=== PATIENT | female | born 1955 | race Caucasian/White ===

== ENCOUNTER 2018-09-02 01:10 | Inpatient (IN) ==
[2018-09-02] MEDS ORDERED: Pantoprazole Inj 40 MG Vial IV.PUSH ONE (02:25)
--- NOTE | 2018-09-02 02:33 | ED ---
HPI General Chief Complaint: Stroke Alert Stated Complaint: N?V Time Seen by Provider: 09/02/18 02:17 Source: patient Mode of arrival: ambulatory Limitations: no limitations History of Present Illness HPI narrative: 63-year-old female complains of nausea vomiting and chest pain. Patient states that she is not having nausea vomiting persistently tonight. Patient came to the ED subsequently. Patient started having substernal chest pain upon arrival. Patient states that the chest pain or pressure pain substernally with radiation to the jaw and the left arm. Patient denies any palpitation diaphoresis. Patient has history of CAD status post MD and status post stent placement. Patient has history hypertension, hyperlipidemia. Patient denies history of diabetes. Patient is a non-smoker. Patient has family history of heart disease. Patient denies abdominal pain. Patient denies any dysuria frequency. Patient denies any fever chills. Patient denies any back pain. 3 38 AM. I was informed by nurse that patient complains of left-sided facial drooping and left arm numbness and weakness. I came to examine the patient immediately. MD complaint: chest pain STEMI Alert: No Onset (ago): minute(s) Duration: constant Onset: during rest Pain location: substernal Severity: moderate Severity scale (1-10): 7 Quality: aching and heaviness Pain radiation: LUE and jaw/teeth Relieving factors: nothing Exacerbating factors: nothing Associated symptoms: nausea and vomiting Treatments prior to arrival chest pain: none Related Data Home Medications Medication Instructions Recorded Confirmed aspirin 325 mg PO DAILY 09/02/18 09/02/18 lisinopril 5 mg PO DAILY 09/02/18 09/02/18 metoprolol tartrate 50 mg PO BID 09/02/18 09/02/18 nitroglycerin [Nitrostat] 0.4 mg SUBLINGUAL Q5-15M PRN 09/02/18 09/02/18 omega 7-gwn-sdf-fish oil [Fish Oil] 1,000 mg PO BID 09/02/18 09/02/18 pravastatin 40 mg PO DAILY 09/02/18 09/02/18 sertraline [Zoloft] 100 mg PO DAILY 09/02/18 09/02/18 Allergies Allergy/AdvReac Type Severity Reaction Status Date / Time codeine AdvReac Mild Nausea Verified 09/02/18 02:25 vomiting Review of Systems ROS: all other systems reviewed are negative [facility] Medical History Medical History FH: cholecystectomy (Acute) H/O coronary stenosis (Acute) H/O: hysterectomy (Acute) HTN (hypertension) (Acute) Heart attack (Acute) Social History Social History Substance History: No History of Abuse Second Hand Smoke Exposure: No Smoking Status: Former smoker How Often Do You Have a Drink Containing Alcohol: Never Recent Travel in [facility] within the Last 8 Weeks: No Recent Out of Country Travel within the Last 8 Weeks: No Immunization History Tetanus Immunization: <5 Years Hx Influenza Vaccine This Season: No Exam Narrative Exam Narrative: GENERAL: Well-nourished, well-developed patient. SKIN: Focused skin assessment warm/dry. HEAD: Normocephalic. EYES: No scleral icterus. No injection or drainage. NECK: Supple, trachea midline. No JVD or lymphadenopathy. CARDIOVASCULAR: Regular rate and rhythm without murmurs, gallops, or rubs. RESPIRATORY: Breath sounds equal bilaterally. No accessory muscle use. GASTROINTESTINAL: Abdomen soft, non-tender, nondistended. MUSCULOSKELETAL: No cyanosis, or edema. BACK: Nontender without obvious deformity. No CVA tenderness. Neurologic exam normal. 3 38 AM. Patient now has left-sided facial drooping and left arm weakness and decrease in light touch sensation. Stroke alert was called. Course Initial Documented Vital Signs Pulse Rate 121 H 09/02/18 01:26 Respiratory Rate 30 H 09/02/18 01:26 Blood Pressure 181/103 H 09/02/18 01:26 Pulse Oximetry 100 09/02/18 01:26 Last Documented Vital Signs Pulse Rate 101 H 09/02/18 04:40 Respiratory Rate 17 09/02/18 04:40 Blood Pressure 164/99 H 09/02/18 04:40 Pulse Oximetry 97 09/02/18 04:40 Medical Decision Making MDM Narrative Medical decision making narrative: 63-year-old female with nausea vomiting and chest pain. History of CAD. Normal saline solution 1 L IV bolus. Normal saline solution 70 cc an hour. Zofran 4 mg IV. Protonix 40 mg IV. 3:38 AM. I was informed by my nurse the patient complains of left-sided facial drooping and left arm numbness and weakness. Stroke alert was called. I spoke with Dr. Howell, neurologist title one reading teacher. TPA indicated. CT scan of the brain shows no acute pathology. Patient was given TPA. Medical Screen Exam Complete: Yes Emergency Medical Condition: Yes Differential Diagnosis Differential Diagnosis: Differential that doses including gastroenteritis, gastritis, GERD, angina, MD, PE, pneumothorax. Lab Data Result diagrams: 09/02/18 02:38 09/02/18 02:38 Lab Results 09/02/18 09/02/18 09/02/18 Range/Units 02:38 02:38 02:38 WBC 13.2 H (4.0-11.0) th/mm3 RBC 5.76 H (4.00-5.30) mil/mm3 Hgb 17.3 H (11.6-15.3) gm/dL Hct 51.0 H (35.0-46.0) % MCV 88.5 (80.0-100.0) fL MCH 30.1 (27.0-34.0) pg MCHC 34.0 (32.0-36.0) % RDW 13.2 (11.6-17.2) % Plt Count 309 (150-450) th/mm3 MPV 9.1 (7.0-11.0) fL Neut % (Auto) 83.1 H (16.0-70.0) % Lymph % (Auto) 12.5 (9.0-44.0) % Mathews % (Auto) 3.8 (0.0-8.0) % Eos % (Auto) 0.1 (0.0-4.0) % Baso % (Auto) 0.5 (0.0-2.0) % Neut # (Auto) 11.0 H (1.8-7.7) th/mm3 Lymph # (Auto) 1.6 (1.0-4.8) th/mm3 Mathews # (Auto) 0.5 (0.0-0.9) th/mm3 Eos # (Auto) 0.0 (0.0-0.4) th/mm3 Baso # (Auto) 0.1 (0.0-0.2) th/mm3 WBC Differential . Differential Comment Auto diff final PT (9.8-11.6) sec INR Ratio APTT (24.3-30.1) sec Sodium 141 (136-145) meq/L Potassium 3.6 (3.5-5.1) meq/L Chloride 104 (98-107) meq/L Carbon Dioxide 22.5 (21.0-32.0) meq/L Anion Gap 15 (5-15) meq/L BUN 10 (7-18) mg/dL Creatinine 0.96 (0.50-1.00) mg/dL Estimated GFR 59 L (>89) mL/min Random Glucose 192 H (74-106) mg/dL Calcium 9.2 (8.5-10.1) mg/dL Total Bilirubin 1.5 H (0.2-1.0) mg/dL AST 18 (15-37) U/L ALT 22 (10-53) U/L Alkaline Phosphatase 114 (45-117) U/L Total Creatine Kinase 53 (26-192) U/L Troponin I Less than 0.02 L (0.02-0.05) ng/mL B-Natriuretic Peptide 24 (0-100) pg/mL Total Protein 8.2 (6.4-8.2) g/dL Albumin 4.5 (3.4-5.0) g/dL Lipase 144 (73-393) U/L Urine Color (Yellw/Straw) Urine Clarity (Clear) Urine pH (5.0-8.5) Ur Specific Joiner (1.002-1.035) Urine Protein (Neg-Trace) mg/dL Urine Glucose (UA) (Negative) mg/dL Urine Ketones (Negative) mg/dL Urine Occult Blood (Negative) Urine Nitrate (Negative) Urine Bilirubin (Negative) Urine Urobilinogen (Less than 2) mg/dL Ur Leukocyte Esterase (Negative) Urine RBC (0-3) /hpf Urine WBC (0-5) /hpf Ur Squamous Epith Cells (0-5) /hpf Urine Bacteria (None) /hpf Hyaline Casts (0-3) /lpf Granular Casts (None) /lpf Waxy Casts (None) /lpf Urine Mucus (Occasional) /lpf Micro UA Comment Ur Microscopic Review Urine Culture Comments 09/02/18 09/02/18 Range/Units 02:38 03:26 WBC (4.0-11.0) th/mm3 RBC (4.00-5.30) mil/mm3 Hgb (11.6-15.3) gm/dL Hct (35.0-46.0) % MCV (80.0-100.0) fL MCH (27.0-34.0) pg MCHC (32.0-36.0) % RDW (11.6-17.2) % Plt Count (150-450) th/mm3 MPV (7.0-11.0) fL Neut % (Auto) (16.0-70.0) % Lymph % (Auto) (9.0-44.0) % Mathews % (Auto) (0.0-8.0) % Eos % (Auto) (0.0-4.0) % Baso % (Auto) (0.0-2.0) % Neut # (Auto) (1.8-7.7) th/mm3 Lymph # (Auto) (1.0-4.8) th/mm3 Mathews # (Auto) (0.0-0.9) th/mm3 Eos # (Auto) (0.0-0.4) th/mm3 Baso # (Auto) (0.0-0.2) th/mm3 WBC Differential Differential Comment PT 10.3 (9.8-11.6) sec INR 1.0 Ratio APTT 24.0 L (24.3-30.1) sec Sodium (136-145) meq/L Potassium (3.5-5.1) meq/L Chloride (98-107) meq/L Carbon Dioxide (21.0-32.0) meq/L Anion Gap (5-15) meq/L BUN (7-18) mg/dL Creatinine (0.50-1.00) mg/dL Estimated GFR (>89) mL/min Random Glucose (74-106) mg/dL Calcium (8.5-10.1) mg/dL Total Bilirubin (0.2-1.0) mg/dL AST (15-37) U/L ALT (10-53) U/L Alkaline Phosphatase (45-117) U/L Total Creatine Kinase (26-192) U/L Troponin I (0.02-0.05) ng/mL B-Natriuretic Peptide (0-100) pg/mL Total Protein (6.4-8.2) g/dL Albumin (3.4-5.0) g/dL Lipase (73-393) U/L Urine Color Shelley (Yellw/Straw) Urine Clarity Cloudy H (Clear) Urine pH 5.0 (5.0-8.5) Ur Specific Joiner 1.025 (1.002-1.035) Urine Protein 100 H (Neg-Trace) mg/dL Urine Glucose (UA) 50 (Negative) mg/dL Urine Ketones Trace H (Negative) mg/dL Urine Occult Blood Negative (Negative) Urine Nitrate Negative (Negative) Urine Bilirubin Negative (Negative) Urine Urobilinogen Less than 2 (Less than 2) mg/dL Ur Leukocyte Esterase Negative (Negative) Urine RBC 2 (0-3) /hpf Urine WBC 5 (0-5) /hpf Ur Squamous Epith Cells 3 (0-5) /hpf Urine Bacteria Rare H (None) /hpf Hyaline Casts 63 (0-3) /lpf Granular Casts 13 (None) /lpf Waxy Casts 1 (None) /lpf Urine Mucus Many H (Occasional) /lpf Micro UA Comment Culture not ind Ur Microscopic Review Not Reportable Urine Culture Comments Culture not ind Imaging Data Attestation: I personally reviewed and interpreted this imaging study as follows : Radiologist's impression: Chest X-Ray 09/02/18 02:26 CONCLUSION: 1. No acute cardiopulmonary disease. Head CT 09/02/18 03:40 CONCLUSION: 1. No acute intracranial abnormality. Findings were personally discussed with Dr. Vines at 3:58 AM. Head CTA 09/02/18 03:40 CONCLUSION: 1. Unremarkable CTA examination of the head. Specifically, no evidence for large vessel occlusion. Neck CTA 09/02/18 03:40 CONCLUSION: 1. Eccentric mixed plaque in the right carotid bulb extending to the internal carotid origin with resultant 60% stenosis. 2. Circumferential calcified plaque extending from the left carotid bulb to the internal carotid origin with resultant 45-50% stenosis. 3. Patent vertebral arteries bilaterally. Discharge Plan Discharge Disposition Patient Disposition: 30 Still Patient Discharge Details Diagnosis: Acute cerebrovascular accident (CVA), Chest pain, Nausea & vomiting Physicians Team ED Provider: Gopal Vines Primary Care Provider: Primary Care Physici,No Other Providers: Alejandro Howell Rxs /Orders / Referrals /Forms Prescriptions: No Action aspirin 325 mg Tablet 325 mg PO DAILY RF: 0 pravastatin 40 mg Tablet 40 mg PO DAILY RF: 0 sertraline [Zoloft] 100 mg Tablet 100 mg PO DAILY RF: 0 metoprolol tartrate 50 mg Tablet 50 mg PO BID RF: 0 nitroglycerin [Nitrostat] 0.4 mg Tablet, Sublingual 0.4 mg SUBLINGUAL Q5-15M PRN (Reason: Chest Pain) RF: 0 lisinopril 5 mg Tablet 5 mg PO DAILY RF: 0 omega 0-kgy-gvo-fish oil [Fish Oil] 1,000 mg (120 mg-180 mg) Capsule 1,000 mg PO BID RF: 0 Status ED Status: With Doctor
[2018-09-02 02:54] LABS: Baso # (Auto) 0.1 th/mm3 (0.0-0.2); Baso % (Auto) 0.5 % (0.0-2.0); Eos % (Auto) 0.1 % (0.0-4.0); Hemoglobin 17.3 gm/dL (11.6-15.3); Lymph # (Auto) 1.6 th/mm3 (1.0-4.8); Lymph % (Auto) 12.5 % (9.0-44.0); Mean Corpuscular Hemoglobin 30.1 pg (27.0-34.0); Mean Corpuscular Volume 88.5 fL (80.0-100.0); Mean Platelet Volume 9.1 fL (7.0-11.0); Mono # (Auto) 0.5 th/mm3 (0.0-0.9); Mono % (Auto) 3.8 % (0.0-8.0); Neut % (Auto) 83.1 % (16.0-70.0); Platelet Count 309 th/mm3 (150-450); Red Blood Count 5.76 mil/mm3 (4.00-5.30); Red Cell Distribution Width 13.2 % (11.6-17.2); White Blood Count 13.2 th/mm3 (4.0-11.0)
[2018-09-02 03:10] LABS: Prothrombin Time 10.3 sec (9.8-11.6)
[2018-09-02 03:13] LABS: Alanine Aminotransferase 22 U/L (10-53); Albumin 4.5 g/dL (3.4-5.0); Anion Gap 15 meq/L (5-15); Aspartate Aminotransferase 18 U/L (15-37); Blood Urea Nitrogen 10 mg/dL (7-18); Calcium 9.2 mg/dL (8.5-10.1); Carbon Dioxide 22.5 meq/L (21.0-32.0); Chloride 104 meq/L (98-107); Glomerular Filtration Rate 59 mL/min (>89); Glucose,Random 192 mg/dL (74-106); Lipase 144 U/L (73-393); Potassium 3.6 meq/L (3.5-5.1); Sodium 141 meq/L (136-145)
[2018-09-02 03:17] LABS: Alkaline Phosphatase 114 U/L (45-117); Total Protein 8.2 g/dL (6.4-8.2)
[2018-09-02 03:22] LABS: Creatine Kinase 53 U/L (26-192)
[2018-09-02 03:50] LABS: Bacteria,Urine Rare /hpf; Bilirubin,Urine Negative (Negative); Clarity,Urine Cloudy (Clear); Color,Urine Amber (Yellw/Straw); Glucose,Urine (UA) 50 mg/dL (Negative); Hyaline Casts,Urine 63 /lpf (0-3); Leukocyte Esterase,Urine Negative (Negative); Mucus,Urine Many /lpf (Occasional); Nitrite,Urine Negative (Negative); Specific Gravity,Urine 1.025 (1.002-1.035); Squamous Epithelial Cell,Urine 3 /hpf (0-5)
--- NOTE | 2018-09-02 04:00 | CT ---
EXAM DATE: 09/02/2018 3:46 AM EDT AGE/SEX: 63 years / Female INDICATIONS: Stroke alert, left side facial droop. CLINICAL DATA: This is the patient's initial encounter. Patient reports that signs and symptoms have been present for 1 day and indicates a pain score of 0/10. MEDICAL/SURGICAL HISTORY: None. None. RADIATION DOSE: 52.83 CTDI (mGy) COMPARISON: No prior exams available for comparison. TECHNIQUE: CT of the head without contrast. Using automated exposure control and adjustment of the mA and/or kV according to patient size, radiation dose was kept as low as reasonably achievable to ob tain optimal diagnostic quality images. DICOM format image data is available electronically for revi ew and comparison. FINDINGS: Cerebrum: Mild to moderate diffuse cerebral atrophy. The ventricles are normal for degree of atrophy . No evidence of midline shift, mass lesion, hemorrhage or acute infarction. No extraaxial fluid col lections are seen. Posterior Fossa: The cerebellum and brainstem are intact. The 4th ventricle is midline. The cerebe llopontine angle is unremarkable. Extracranial: The visualized portion of the orbits is intact. Skull: The calvaria is intact. No evidence of skull fracture. CONCLUSION: 1. No acute intracranial abnormality. Findings were personally discussed with Dr. Vines at 3:58 AM. Electronically signed by: Willie Tristan MD 09/02/2018 3:58 AM EDT
[2018-09-02] MEDS ORDERED: ALTEPLASE DRIP IV.SIG ONE ×2 (04:06→04:23)
[2018-09-02] MEDS ORDERED: Alteplase Bolus 9 MG/9 ML Syringe IV.PUSH ONE ×2 (04:06→04:23)
--- NOTE | 2018-09-02 04:14 | XR ---
EXAM DATE: 09/02/2018 2:26 AM EDT AGE/SEX: 63 years / Female INDICATIONS: Substernal chest pain. CLINICAL DATA: This is the patient's initial encounter. Patient reports that signs and symptoms have been present for 1 day and indicates a pain score of 7/10. MEDICAL/SURGICAL HISTORY: Hypertension. None. COMPARISON: No prior exams available for comparison. FINDINGS: A single AP view of the chest demonstrates the lungs to be symmetrically aerated without evidence of mass, infiltrate or effusion. The cardiomediastinal contours are unremarkable. Osseous structures a re intact. CONCLUSION: 1. No acute cardiopulmonary disease. Electronically signed by: Willie Tristan MD 09/02/2018 4:13 AM EDT
--- NOTE | 2018-09-02 04:17 | CT ---
EXAM DATE: 09/02/2018 3:46 AM EDT AGE/SEX: 63 years / Female INDICATIONS: Stroke alert, left side facial droop. CLINICAL DATA: This is the patient's subsequent encounter. Patient reports that signs and symptoms h ave been present for 1 day and indicates a pain score of 0/10. MEDICAL/SURGICAL HISTORY: None. None. RADIATION DOSE: 10.44 CTDI (mGy) ; Combined studies ; Patient motion COMPARISON: No prior exams available for comparison. TECHNIQUE: Volumetric scanning was performed using a multi-row detector CT scanner during bolus infu salvatore of 150 ml Omnipaque 350 (iohexol) nonionic water-soluble contrast as a cumulative dose for mult iple exams. The data was post processed with a variety of visualization algorithms including full v olume maximum intensity projection, multi-planar sliding thin slab reformation, curved planar reforma tion, and surface rendering techniques. Using automated exposure control and adjustment of the mA an d/or kV according to patient size, radiation dose was kept as low as reasonably achievable to obtain optimal diagnostic quality images. DICOM format image data is available electronically for review an d comparison. FINDINGS: Anterior Circulation: Intracranial Carotid Arteries: Patent. AMPARO: There is no evidence for aneurysm, vessel truncation or stenosis, and no evidence for vascular m alformation. MCA: There is no evidence for aneurysm, vessel truncation or stenosis, and no evidence for vascular m alformation. Posterior Circulation: Distal Vertebral Arteries: Distal Vertebral arteries are symetrical and patent. Basilar Artery: There is no evidence for aneurysm, vessel truncation or stenosis, and no evidence for vascular malformation. INSURANCE ADMINISTRATOR and Cerebellar Branches: There is no evidence for aneurysm, vessel truncation or stenosis, and no evidence for vascular malformation. CONCLUSION: 1. Unremarkable CTA examination of the head. Specifically, no evidence for large vessel occlusion. Electronically signed by: Willie Tristan MD 09/02/2018 4:15 AM EDT
--- NOTE | 2018-09-02 04:27 | CT ---
EXAM DATE: 09/02/2018 3:46 AM EDT AGE/SEX: 63 years / Female INDICATIONS: Stroke alert, left side facial droop. CLINICAL DATA: This is the patient's initial encounter. Patient reports that signs and symptoms have been present for 1 day and indicates a pain score of 0/10. MEDICAL/SURGICAL HISTORY: None. None. RADIATION DOSE: 10.44 CTDI (mGy) ; Combined studies ; Patient motion COMPARISON: No prior exams available for comparison. TECHNIQUE: Volumetric scanning was performed using a multirow detector CT scanner during bolus infus ion of 150 ml Omnipaque 350 (iohexol) nonionic water-soluble contrast as a cumulative dose for multi ple exams. The data was postprocessed with a variety of visualization algorithms including full-vol ume maximum intensity projection, multiplanar sliding thin-slab reformation, curved-planar reformatio n, and surface-rendering techniques. Using automated exposure control and adjustment of the mA and/o r kV according to patient size, radiation dose was kept as low as reasonably achievable to obtain opt imal diagnostic quality images. DICOM format image data is available electronically for review and c omparison. Percent stenosis is calculated using the diameter of the stenotic region over the diameter of the nor mal distal internal carotid artery. FINDINGS: Aortic Arch: There is a three-vessel origin of the great vessels from the aorta. No evidence of ost ial narrowing Right Carotid: The common carotid artery is intact. Eccentric mixed plaque extending from the distal bulb to the origin of the internal carotid artery with resultant approximately 60% stenosis. Interna l carotid artery is otherwise patent to the skull base.. The external carotid artery is intact. Left Carotid: The common carotid artery is intact. Circumferential calcified plaque extending from t he distal bulb to the origin of the internal carotid artery with resultant 45-50% stenosis. Internal carotid arteries otherwise patent to the skull base. The external carotid artery is intact. Vertebrals: The vertebral arteries have a symmetric diameter. No stenotic lesions are seen. General Findings: Lung apices are clear. Thyroid is unremarkable by CT. No significant adenopathy. CONCLUSION: 1. Eccentric mixed plaque in the right carotid bulb extending to the internal carotid origin with re sultant 60% stenosis. 2. Circumferential calcified plaque extending from the left carotid bulb to the internal carotid sher gin with resultant 45-50% stenosis. 3. Patent vertebral arteries bilaterally. Electronically signed by: Willie Tristan MD 09/02/2018 4:25 AM EDT
[2018-09-02] MEDS ORDERED: Labetalol HCl Inj 100 MG/20 ML Vial IV.PUSH ONE (04:28)
[2018-09-02] MEDS: Sod Chloride 0.9% Inj 1,000 ML IV.CONT SCH ×2 (04:32→19:50)
[2018-09-02] MEDS ORDERED: Bisacodyl 10 MG Supp RECTAL PRN (05:55)
[2018-09-02] MEDS ORDERED: Dextrose 50% in Water 50 ML Vial IV.PUSH PRN ×2 (05:58→06:18)
[2018-09-02] MEDS ORDERED: niCARdipine Inj 25 MG in Sodium Chlor 0.9% Inj 240 ML IV.CONT PRN (06:18)
--- NOTE | 2018-09-02 06:47 | P.HPCC ---
History of Present Illness Service: Critical care medicine Primary Care Physician: No Primary Care Physician Chief Complaint: Chest pain, nausea vomiting History of Present Illness: This is a 63-year-old female. Date of admission 09/02/2018. Past medical history includes depression, coronary disease with history of myocardial infarction, hypertension, hyperlipidemia. She presents originally to [facility] ED with a chief complaint of chest pain, nausea and vomiting. She received ondansetron in the ED. Initial troponin is less than 0.02. EKG revealed possible incomplete right bundle branch block otherwise unremarkable. At 330 this a.m., patient experienced left-sided facial droop and left-sided weakness and numbness. Stroke alert was called. CT brain revealed no acute intracranial findings. CT angiogram of the brain revealed no acute large occlusions. CT Angio of the neck revealed right carotid bulb 60%, left carotid bulb 45-50%. Vertebral is patent. Dr. Howell/neurology was consulted. Recommended alteplase 7.3 mg bolus followed by 65.5 mg with remaining hour which received. MRI brain planned for today. Repeat CT brain imaging in a.m. or earlier 09/03. On examination, tongue does deviate to the left. Slight facial droop and left. Subjective weakness with pronator drift on the left upper extremity with numbness. Decreased sensation to light touch and pinprick.. Strength appears to be 5 out of 5 in the right upper and lower and left lower extremity. Inpatient Certification: I certify that the inpatient services were ordered in accordance with Medicare regulations governing the order. This includes certification that hospital inpatient services are reasonable and necessary and in the case of services not specified as inpatient-only under 42 CFR 419.22(n), that they are appropriately provided as inpatient services in accordance to with the 2-midnight benchmark under 43 CFR 412.3(e) Estimated Total Length of Stay (Days): 4 Plans for Post Hospital Care: Not yet determined Review of Systems Constitutional: Denies anorexia, Denies body ache(s) Eyes: Denies blind spots, Denies blurry vision Ears, Nose, Mouth, and Throat: Reports poor balance, Denies abnormal hearing, Denies facial pain, Denies headache(s) Cardiovascular: Reports chest pain, Reports fast heart rate, Denies chest pain at rest, Denies chest pain with activity, Denies excessive sweating, Denies shortness of breath with activity Respiratory: Denies change in phlegm color, Denies chest congestion, Denies cough Gastrointestinal: Reports nausea, Denies abdominal pain, Denies vomiting Genitourinary: Denies difficulty urinating Musculoskeletal: Reports abnormal walking, Denies back pain Skin/Breast: Denies bleeding lesions, Denies skin ulcer Neurologic: Reports abnormal speech, Reports abnormal walking, Reports confusion , Reports lack of coordination, Reports localized weakness, Reports numbness, Reports tingling/numbness/burning sensations, Reports weakness, Denies abnormal hearing, Denies seizure-like activity Psychiatric: Reports anxiety, Denies thoughts of hurting/killing others, Denies thoughts of hurting/killing yourself Endocrine: Denies cold intolerance, Denies excessive sweating Hematologic/Lymphatic: Denies easy bleeding Allergic/Immunologic: Denies GI upset with certain foods PMFSH - History History Provided By: Patient - Medical History Medical History: Medical History (Last Updated 09/02/18 @ 06:53 by Daniel Steinberg MD) Carotid artery disease Depression H/O coronary stenosis HTN (hypertension) Heart attack Hyperlipidemia - Surgical History Surgical History: Surgical History (Last Updated 09/02/18 @ 06:54 by Daniel Steinberg MD) H/O: hysterectomy History of cholecystectomy - Family History Family History: Family History (Last Updated 09/02/18 @ 06:54 by Daniel Steinberg MD) Grandparent Family history of myocardial infarction - Tobacco History Second Hand Smoke Exposure: No Smoking Status: Former smoker - Alcohol History How Often Do You Have a Drink Containing Alcohol: Never - Substance Use History Substance History: No History of Abuse - Travel History Recent Travel in the [place] Within the Last 8 Weeks: No Recent Travel Out of the Country Within the Last 8 Weeks: No - Immunization History Tetanus Immunization: <5 Years Hx Influenza Vaccine This Season: No Medications and Allergies Active Medications: Active Medications Al Hydroxide/Mg Hydroxide (Milk Of Magnesia Liq) 30 ml PO Q12H PRN PRN Reason: Mild Constipation Bisacodyl (Dulcolax Supp) 10 mg RECTAL DAILY PRN PRN Reason: SEVERE CONSITIPATION Chlorhexidine Gluconate (Chlorhexidine 2% Cloth) 3 pack TOPICAL DAILY@0400 [facility] Stop: 09/08/18 03:59 Chlorhexidine Gluconate (Chlorhexidine 2% Cloth) 3 pack TOPICAL DAILY@0400 PRN PRN Reason: Extra cloth needed Stop: 09/08/18 03:59 Dextrose (D50w Vial) 50 ml IV.PUSH UNSCH PRN PRN Reason: PER HYPOGLYCEMIA PROTOCOL Dextrose (D50w Vial) 50 ml IV.PUSH UNSCH PRN PRN Reason: PER HYPOGLYCEMIA PROTOCOL Glucagon (Glucagon Inj) 1 mg OTHER PRN PRN PRN Reason: for Hypoglycemia Protocol Glucagon (Glucagon Inj) 1 mg OTHER UNSCH PRN PRN Reason: for Hypoglycemia Protocol Sodium Chloride (Ns Inj) 1,000 mls @ 70 mls/hr IV.CONT .[id number] LORA Last Infusion: 09/02/18 06:39 Dose: 70 mls/hr Nicardipine HCl 25 mg/ Sodium (Chloride) 250 mls @ 25 mls/hr IV.CONT TITRATE PRN; Protocol PRN Reason: Per Protocol Insulin Aspart (Novolog Insulin Correctional Sugar Inj) 0 unit SQ Q6HR [facility]ORA; Protocol Labetalol HCl (Trandate Inj) 10 mg IV.PUSH Q1H PRN PRN Reason: Acute Pain Lactulose (Lactulose Liq) 30 ml PO DAILY PRN PRN Reason: SEVERE CONSITIPATION Ondansetron HCl (Zofran Inj) 4 mg IV.PUSH Q6H PRN PRN Reason: NAUSEA Pantoprazole Sodium (Protonix) 40 mg PO DAILY [facility] Pravastatin Sodium (Pravachol) 40 mg PO HS [facility] Sennosides (Senokot) 17.2 mg PO Q12H PRN PRN Reason: Moderate Constipation Sodium Chloride (Ns Flush) 2 ml IV.FLUSH BID [facility] Sodium Chloride (Ns Flush) 2 ml IV.FLUSH PRN PRN PRN Reason: FLUSH AFTER USING IV ACCESS Allergies Allergy/AdvReac Type Severity Reaction Status Date / Time codeine AdvReac Mild Nausea Verified 09/02/18 02:25 vomiting Home Medications Medication Instructions Recorded Confirmed Type aspirin 325 mg PO DAILY 09/02/18 09/02/18 History lisinopril 5 mg PO DAILY 09/02/18 09/02/18 History metoprolol tartrate 50 mg PO BID 09/02/18 09/02/18 History nitroglycerin [Nitrostat] 0.4 mg SUBLINGUAL Q5-15M PRN 09/02/18 09/02/18 History omega 1-srr-ajy-fish oil [Fish Oil] 1,000 mg PO BID 09/02/18 09/02/18 History pravastatin 40 mg PO DAILY 09/02/18 09/02/18 History sertraline [Zoloft] 100 mg PO DAILY 09/02/18 09/02/18 History Results - Labs CBC & Chem 7: 09/02/18 02:38 09/02/18 02:38 Labs: Short CBC 09/02/18 Range/Units 02:38 WBC 13.2 H (4.0-11.0) th/mm3 Hgb 17.3 H (11.6-15.3) gm/dL Hct 51.0 H (35.0-46.0) % Plt Count 309 (150-450) th/mm3 BMP 09/02/18 02:38 Sodium 141 Potassium 3.6 Chloride 104 Carbon Dioxide 22.5 BUN 10 Creatinine 0.96 Calcium 9.2 Cardiac Enzymes 09/02/18 Range/Units 02:38 Total Creatine Kinase 53 (26-192) U/L Troponin I Less than 0.02 L (0.02-0.05) ng/mL Liver Function 09/02/18 Range/Units 02:38 Total Bilirubin 1.5 H (0.2-1.0) mg/dL AST 18 (15-37) U/L ALT 22 (10-53) U/L Alkaline Phosphatase 114 (45-117) U/L Albumin 4.5 (3.4-5.0) g/dL Urine 09/02/18 Range/Units 03:26 Urine Color Shelley (Yellw/Straw) Urine Clarity Cloudy H (Clear) Urine pH 5.0 (5.0-8.5) Ur Specific [place] 1.025 (1.002-1.035) Urine Protein 100 H (Neg-Trace) mg/dL Urine Glucose (UA) 50 (Negative) mg/dL - Imaging Impressions Chest X-Ray 09/02/18 02:26 CONCLUSION: 1. No acute cardiopulmonary disease. Head CT 09/02/18 03:40 CONCLUSION: 1. No acute intracranial abnormality. Findings were personally discussed with Dr. Vines at 3:58 AM. Head CTA 09/02/18 03:40 CONCLUSION: 1. Unremarkable CTA examination of the head. Specifically, no evidence for large vessel occlusion. Neck CTA 09/02/18 03:40 CONCLUSION: 1. Eccentric mixed plaque in the right carotid bulb extending to the internal carotid origin with resultant 60% stenosis. 2. Circumferential calcified plaque extending from the left carotid bulb to the internal carotid origin with resultant 45-50% stenosis. 3. Patent vertebral arteries bilaterally. Exam Vital signs: Vital Signs 09/02/18 01:26 09/02/18 02:48 09/02/18 04:15 Pulse Rate 121 H 113 H Respiratory Rate 30 H 22 Blood Pressure 181/103 H 178/80 H Pulse Oximetry 100 100 96 09/02/18 04:29 09/02/18 04:38 09/02/18 04:40 Pulse Rate 114 H 107 H 101 H Respiratory Rate 20 20 17 Blood Pressure 213/104 H 204/92 H 164/99 H Pulse Oximetry 97 96 97 09/02/18 05:18 09/02/18 05:42 09/02/18 05:57 Pulse Rate 101 H 108 H Respiratory Rate 17 18 Blood Pressure 179/74 H 161/70 H Pulse Oximetry 97 96 96 09/02/18 06:12 Pulse Rate 103 H Respiratory Rate 19 Blood Pressure 168/72 H Pulse Oximetry 97 Intake & Output 09/01/18 09/01/18 09/02/18 06:59 18:59 06:59 Intake Total 165.5 / 165.5 Balance 165.5 / 165.5 Weight 80.6 kg Intake: IV 165.5 / 165.5 NS Inj 1,000 ML @ 70 mls/hr IV. 100 / 100 CONT .[id number] [facility] Rx#:[id number] Activase Drip 65.5 MG In Bag/ 65.5 / 65.5 Syringe 1 EACH @ 65.5 mls/hr IV .SIG ONCE ONE Rx#:[id number] Narrative: GENERAL: 63-year-old female currently resting in bed in no acute distress on room air SKIN: Warm and dry. No rash HEAD: Atraumatic. Normocephalic. EYES: Pupils equal and round about 2 mm bilaterally and react. No scleral icterus. No injection or drainage. ENT: No nasal bleeding or discharge. Mucous membranes pink and moist. NECK: Trachea midline. No JVD. CARDIOVASCULAR: Regular rate and rhythm. S1, S2 no S4. Without murmur RESPIRATORY: No accessory muscle use. Clear to auscultation. Breath sounds equal bilaterally. GASTROINTESTINAL: Abdomen soft, non-tender, nondistended. Hypoactive bowel sounds appreciated MUSCULOSKELETAL: Extremities without significant peripheral edema. No obvious deformities. NEUROLOGICAL: Awake and alert. Slight left facial droop. Tongue deviates to the left. Pupils as above. Positive pronator drift on left. Strength 3/5 left upper semi-. 5/5 left lower extremity. Strength 5 out of 5 right upper lower extremity. Normal sensation. Decreased sensation to light touch and pinprick left upper extremity. DTRs are equal symmetric bilaterally. Gait was not assessed. Septic Shock Reassessment Septic shock perfusion: reassessment completed Caprini VTE Risk Assessment Caprini VTE Risk Assessment: Moderate/High Risk (score >= 2) Caprini Risk Assessment Model: Point Value = 1 Point Value = 2 Point Value = 3 Point Value = 5 Age 41-60 Minor surgery BMI > 25 kg/m2 Swollen legs Varicose veins or History of unexplained or recurrent spontaneous Oral contraceptives or hormone replacement Sepsis (< 1 month) Serious lung disease, including pneumonia (< 1 month) Abnormal pulmonary function Acute myocardial infarction Congestive heart failure (< 1 month) History of inflammatory bowel disease Medical patient at bed rest Age 61-74 Arthroscopic surgery Major open surgery (> 45 min) Laparoscopic surgery (> 45 min) Malignancy Confined to bed (> 72 hours) Immobilizing plaster cast Central venous access Age >= 75 History of VTE Family history of VTE Factor V Leiden Prothrombin [id number] Lupus anticoagulant Anticardiolipin antibodies Elevated serum homocysteine Heparin-induced thrombocytopenia Other congenital or acquired thrombophilia Stroke (< 1 month) Elective arthroplasty Hip, pelvis, or leg fracture Acute spinal cord injury (< 1 month) Prophylaxis Regimen: Total Risk Factor Score Risk Level Prophylaxis Regimen 0-1 Low Early ambulation 2 Moderate Order ONE of the following: *Sequential Compression Device (SCD) *Heparin 5000 units SQ BID 3-4 Higher Order ONE of the following medications: *Heparin 5000 units SQ TID *Enoxaparin/Lovenox 40 mg SQ daily (WT < 150 kg, CrCl > 30 mL/min) *Enoxaparin/Lovenox 30 mg SQ daily (WT < 150 kg, CrCl > 10-29 mL/min) *Enoxaparin/Lovenox 30 mg SQ BID (WT < 150 kg, CrCl > 30 mL/min) AND/OR *Sequential Compression Device (SCD) 5 or more Highest Order ONE of the following medications: *Heparin 5000 units SQ TID (Preferred with Epidurals) *Enoxaparin/Lovenox 40 mg SQ daily (WT < 150 kg, CrCl > 30 mL/min) *Enoxaparin/Lovenox 30 mg SQ daily (WT < 150 kg, CrCl > 10-29 mL/min) *Enoxaparin/Lovenox 30 mg SQ BID (WT < 150 kg, CrCl > 30 mL/min) AND *Sequential Compression Device (SCD) Assessment and Plan - Assessment and Plan Plan: Neuro/Psych: Depressive disorder NOS Acute CVA status post alteplase -left facial droop/tongue deviation, left upper extremity weakness CT brain revealed no acute intracranial findings CT angiogram revealed no large occlusions. No acute findings. CT angiogram of the neck revealed right carotid bulb stenosis 60%. Left carotid bulb stenosis 45-50%. Vertebrals patent. Received 7.3 mg of alteplase to ED bolus followed by 65.5 mg infusion MRI brain ordered for today. Repeat CT brain 24 hours post alteplase infusion or earlier if neurological checks Neurochecks q. one hours. Lie flat times 12 hours. Goal keep systolic blood pressure less than 180, diastolic pressure less than 105. Post alteplase infusion PT/OT/ST evaluate and treat. 2D echocardiogram ordered. Hemoglobin A1c and lipid panel pending. Neurological consultation with Dr. Covarrubias pending Holding sertraline 100 mg daily. Resume when clinically indicated Ofirmev 650 mg IV every 6 hours as needed fever/pain 1 through 10 CV: Essential hypertension Hyperlipidemia Coronary artery disease Carotid artery disease -60% right carotid bulb, 80% left carotid bulb Initial troponin less than 0.02. EKG revealed normal sinus rhythm 99. Normal AK, QT intervals. Possible incomplete right bundle branch block. No ST changes. Previously on aspirin 325 mg daily. Holding Lantus alteplase infusion. Likely resume in a.m. if CT brain reveals no bleeding Home medication for hypertension include lisinopril 5 mg daily metoprolol tartrate 50 mg twice daily. Currently on hold. Home medications for dyslipidemia include omega-3 fatty acid 1000 mg twice daily. Patient is also on pravastatin 40 mg daily. Resume when clinically indicated. As needed labetalol 10 mg IV every 1 hours and nicardipine drip titrate to keep systolic blood pressure less than 180/diastolic blood pressure 105 status post alteplase infusion 2D echocardiogram pending Resp: Nasal cannula to maintain saturations greater than or equal to 92% Incentive spirometry while awake Chest x-ray revealed no acute cardiopulmonary findings GI: Elevated total bilirubin N.p.o. status Pantoprazole for GI prophylaxis Docusate sodium/senna 1 tablet twice daily for bowel regimen OD acetone 4 mg IV every 6 hours as needed nausea : Ahley catheter only for urinary retention UA no findings for infection on admission Endo: Hyperglycemia Sliding scale insulin Accu-Cheks to maintain euglycemia every 6 hours Check hemoglobin A1c and TSH in a.m. Renal: Creatinine currently within normal limits Monitor urine output Accurate I's and O's Heme: Leukocytosis Polycythemia Monitor CBC daily. Follow trends. No indication for transfusion of blood products at this time ID: Monitor for signs and symptomatology infection FEN: Replace electrolytes as clinically indicated per ICU likely protocol Currently normal saline at 70 cc an hour MSK: PT/OT evaluate and treat Access -Utilize peripheral IV. Central line if indicated Prophylaxis -GI -pantoprazole -DVT -SCDs/holding pharmacological prophylaxis 24 hours post alteplase infusion Level 3 H&P.
[2018-09-02] MEDS: Labetalol HCl Inj 100 MG/20 ML Vial IV.PUSH PRN ×2 (06:54→11:18)
[2018-09-02] MEDS ORDERED: Magnesium Sulfate Inj 4 GM in Sodium Chlor 0.9% Inj 92 ML IV.SIG PRN (07:02)
[2018-09-02] MEDS ORDERED: Sodium Phosphate Inj 30 MMOL in Sodium Chlor 0.9% Inj 250 ML IV.SIG PRN (07:02)
[2018-09-02] MEDS ORDERED: Potassium Phosphate Inj 30 MMOL in Sodium Chlor 0.9% Inj 250 ML IV.SIG PRN (07:02)
[2018-09-02] MEDS ORDERED: Potassium Chloride 25 MEQ Effervescent Tablet PO PRN (07:02)
[2018-09-02] MEDS ORDERED: Magnesium Sulfate Inj 2 GM in Sodium Chlor 0.9% Inj 96 ML IV.SIG PRN (07:02)
[2018-09-02] MEDS ORDERED: Magnesium Oxide 400 MG Tablet PO PRN (07:02)
[2018-09-02] MEDS ORDERED: Potassium Phosphate 500 MG Soluble Tablet PO PRN ×2 (07:02)
[2018-09-02] MEDS ORDERED: Potassium Chlor 40 mEq Premix 40 MEQ/100 ML PIGGYBACK IV.SIG PRN ×2 (07:02)
[2018-09-02] MEDS ORDERED: Potassium Chlor 20 mEq Premix 20 MEQ/100 ML PIGGYBACK IV.SIG PRN ×2 (07:02)
--- NOTE | 2018-09-02 08:03 | P.CONNEU ---
History of Present Illness Service: Neurology Primary Care Provider: No Primary Care Physician Chief Complaint: Stroke alert History of Present Illness: 63-year-old female admitted for stroke. Came into the ER with complaints of nausea vomiting. Thereafter in the ER she developed weakness of her left arm and face a stroke alert was called. She had CT of the brain CTAs performed. No acute lesion no significant vaso-occlusive disease. IV TPA was discussed the patient risks benefits including 6% chance of intracranial hemorrhage stomach bleeding. Patient elected towards treatment. She is done well overnight she was not able to raise her left arm and now she is. Denies any previous history of TIA or stroke. She moved down to [place] from the [place] and has been here for a month and does not have any doctor. She has not taken her medication over the past week. She does take aspirin as well as antihypertensives and lipid-lowering agents but has missed them. No history of head or neck trauma, no history of any hypercoagulable state or atrial fibrillation. Review of Systems All other systems reviewed negative except as stated in HPI PMFSH - History History Provided By: Patient - Medical History Medical History: Medical History (Last Updated 09/02/18 @ 06:53 by Daniel Steinberg MD) Carotid artery disease Depression H/O coronary stenosis HTN (hypertension) Heart attack Hyperlipidemia - Surgical History Surgical History: Surgical History (Last Updated 09/02/18 @ 06:54 by Daniel Steinberg MD) H/O: hysterectomy History of cholecystectomy - Family History Family History: Family History (Last Updated 09/02/18 @ 06:54 by Daniel Steinberg MD) Grandparent Family history of myocardial infarction - Tobacco History Second Hand Smoke Exposure: No Smoking Status: Former smoker - Alcohol History How Often Do You Have a Drink Containing Alcohol: Never - Substance Use History Substance History: No History of Abuse - Travel History Recent Travel in the [place] Within the Last 8 Weeks: No Recent Travel Out of the Country Within the Last 8 Weeks: No - Immunization History Tetanus Immunization: <5 Years Hx Influenza Vaccine This Season: No Medications and Allergies Active Medications: Active Medications Al Hydroxide/Mg Hydroxide (Milk Of Magndev Liq) 30 ml PO Q12H PRN PRN Reason: Mild Constipation Bisacodyl (Dulcolax Supp) 10 mg RECTAL DAILY PRN PRN Reason: SEVERE CONSITIPATION Chlorhexidine Gluconate (Chlorhexidine 2% Cloth) 3 pack TOPICAL DAILY@0400 [facility] Stop: 09/08/18 03:59 Chlorhexidine Gluconate (Chlorhexidine 2% Cloth) 3 pack TOPICAL DAILY@0400 PRN PRN Reason: Extra cloth needed Stop: 09/08/18 03:59 Dextrose (D50w Vial) 50 ml IV.PUSH UNSCH PRN PRN Reason: PER HYPOGLYCEMIA PROTOCOL Dextrose (D50w Vial) 50 ml IV.PUSH UNSCH PRN PRN Reason: PER HYPOGLYCEMIA PROTOCOL Glucagon (Glucagon Inj) 1 mg OTHER PRN PRN PRN Reason: for Hypoglycemia Protocol Glucagon (Glucagon Inj) 1 mg OTHER UNSCH PRN PRN Reason: for Hypoglycemia Protocol Sodium Chloride (Ns Inj) 1,000 mls @ 70 mls/hr IV.CONT .[id number] [facility] Last Infusion: 09/02/18 06:39 Dose: 70 mls/hr Nicardipine HCl 25 mg/ Sodium (Chloride) 250 mls @ 25 mls/hr IV.CONT TITRATE PRN; Protocol PRN Reason: Per Protocol Acetaminophen (Ofirmev Inj) 650 mg in 65 mls @ 400 mls/hr IV.SIG Q6H PRN PRN Reason: fever, pain 1-10 Magnesium Sulfate 4 gm/ Sodium (Chloride) 100 mls @ 50 mls/hr IV.SIG UNSCH PRN PRN Reason: For Magnesium 0.9 - 1.1 mg/dL Magnesium Sulfate 2 gm/ Sodium (Chloride) 100 mls @ 50 mls/hr IV.SIG UNSCH PRN PRN Reason: For Magnesium 1.2 - 1.6 mg/dL Potassium Chloride (Kcl 40 Meq Premix Inj) 40 meq in 100 mls @ 25 mls/hr IV.SIG Q2H PRN PRN Reason: For Potassium 2.8 - 3.2 mEq/L Potassium Chloride (Kcl 20 Meq Premix Inj) 20 meq in 100 mls @ 50 mls/hr IV.SIG Q2H PRN PRN Reason: For Potassium 3.3 - 3.5 mEq/L Potassium Chloride (Kcl 40 Meq Premix Inj) 40 meq in 100 mls @ 25 mls/hr IV.SIG UNSCH PRN PRN Reason: For Potassium 3.3 - 3.5 mEq/L Potassium Chloride (Kcl 20 Meq Premix Inj) 20 meq in 100 mls @ 50 mls/hr IV.SIG Q2H PRN PRN Reason: For Potassium 2.8 - 3.2 mEq/L Potassium Phosphate 30 mmol/ (Sodium Chloride) 260 mls @ 42 mls/hr IV.SIG UNSCH PRN PRN Reason: SEE LABEL COMMENTS Sodium Phosphate 30 mmol/ (Sodium Chloride) 260 mls @ 42 mls/hr IV.SIG UNSCH PRN PRN Reason: For Phosphorus < 2.5 mg/dL Insulin Aspart (Novolog Insulin Correctional Sugar Inj) 0 unit SQ Q6HR LORA; Protocol Labetalol HCl (Trandate Inj) 10 mg IV.PUSH Q1H PRN PRN Reason: Acute Pain Last Admin: 09/02/18 06:54 Dose: 10 mg Lactulose (Lactulose Liq) 30 ml PO DAILY PRN PRN Reason: SEVERE CONSITIPATION Magnesium Oxide (Mag-Ox) 800 mg PO UNSCH PRN PRN Reason: For Magnesium 1.2 - 1.6 mg/dL Ondansetron HCl (Zofran Inj) 4 mg IV.PUSH Q6H PRN PRN Reason: NAUSEA Pantoprazole Sodium (Protonix) 40 mg PO DAILY [facility] Potassium Bicarb/Potassium Chloride (K-Lyte Cl Eff) 50 meq PO UNSCH PRN PRN Reason: For Potassium 3.3 - 3.5 mEq/L Potassium Phosphate (K-Phos Original) 2,000 mg PO Q4H PRN PRN Reason: Phosphorus Less Than 2.5 mg/dL Potassium Phosphate (K-Phos Original) 2,000 mg PO UNSCH PRN PRN Reason: SEE LABEL COMMENTS Pravastatin Sodium (Pravachol) 40 mg PO HS [facility] Prochlorperazine Edisylate (Compazine Inj) 5 mg IV.PUSH Q6H PRN PRN Reason: BREAKTHROUGH NAUSEA Sennosides (Senokot) 17.2 mg PO Q12H PRN PRN Reason: Moderate Constipation Sodium Chloride (Ns Flush) 2 ml IV.FLUSH BID LORA Sodium Chloride (Ns Flush) 2 ml IV.FLUSH PRN PRN PRN Reason: FLUSH AFTER USING IV ACCESS Allergies Allergy/AdvReac Type Severity Reaction Status Date / Time codeine AdvReac Mild Nausea Verified 09/02/18 02:25 vomiting Home Medications Medication Instructions Recorded Confirmed Type aspirin 325 mg PO DAILY 09/02/18 09/02/18 History lisinopril 5 mg PO DAILY 09/02/18 09/02/18 History metoprolol tartrate 50 mg PO BID 09/02/18 09/02/18 History nitroglycerin [Nitrostat] 0.4 mg SUBLINGUAL Q5-15M PRN 09/02/18 09/02/18 History omega 0-itn-nyz-fish oil [Fish Oil] 1,000 mg PO BID 09/02/18 09/02/18 History pravastatin 40 mg PO DAILY 09/02/18 09/02/18 History sertraline [Zoloft] 100 mg PO DAILY 09/02/18 09/02/18 History Exam Vital signs: Vital Signs 09/02/18 01:26 09/02/18 02:48 09/02/18 04:15 Pulse Rate 121 H 113 H Respiratory Rate 30 H 22 Blood Pressure 181/103 H 178/80 H Pulse Oximetry 100 100 96 09/02/18 04:29 09/02/18 04:38 09/02/18 04:40 Pulse Rate 114 H 107 H 101 H Respiratory Rate 20 20 17 Blood Pressure 213/104 H 204/92 H 164/99 H Pulse Oximetry 97 96 97 09/02/18 05:18 09/02/18 05:42 09/02/18 05:57 Pulse Rate 101 H 108 H Respiratory Rate 17 18 Blood Pressure 179/74 H 161/70 H Pulse Oximetry 97 96 96 09/02/18 06:12 Pulse Rate 103 H Respiratory Rate 19 Blood Pressure 168/72 H Pulse Oximetry 97 Intake & Output 09/01/18 09/02/18 09/02/18 18:59 06:59 18:59 Intake Total 165.5 / 165.5 Balance 165.5 / 165.5 Weight 80.6 kg Intake: IV 165.5 / 165.5 NS Inj 1,000 ML @ 70 mls/hr IV. 100 / 100 CONT .[id number] [facility] Rx#:[id number] Activase Drip 65.5 MG In Bag/ 65.5 / 65.5 Syringe 1 EACH @ 65.5 mls/hr IV .SIG ONCE ONE Rx#:[id number] Narrative: GENERAL: in NAD, SKIN: Warm and dry. HEAD: Atraumatic. Normocephalic. EYES: Pupils equal and round. No scleral icterus. ENT: No nasal bleeding or discharge. Mucous membranes pink and moist. NECK: Trachea midline. No JVD. CARDIOVASCULAR: Regular rate and rhythm. RESPIRATORY: No accessory muscle use. GASTROINTESTINAL: Abdomen soft, non-tender, nondistended. MUSCULOSKELETAL: Extremities without clubbing, cyanosis, or edema. No obvious deformities. NEUROLOGICAL: Awake and alert. Oriented x3, dysarthric speech, no aphasia, fluent articulate, No facial asymmetry, OU 3-2mm, eomi, VFF, No drift, Motor grossly within normal limits. Left upper extremity weakness 3 out of 5 with dystaxia proportional to level weakness able to raise it off the bed difficulty with opening and closing her hand however, left lower extremity strength 5- out of 5 no drift no neglect. Tone normal in all 4 limbs, Sensory normal in all 4 extremities to pin, msr 1-2+ sym, no clonus, planterflexor, PSYCHIATRIC: Appropriate mood and affect; insight and judgment normal. - Constitutional no acute distress - Routine HEENT Exam Head: Present: normocephalic Eye: Present: EOMI Results - Labs CBC & Chem 7: 09/02/18 02:38 09/02/18 02:38 Labs: Laboratory Results - last 24 hr 09/02/18 09/02/18 09/02/18 02:38 02:38 02:38 WBC 13.2 H RBC 5.76 H Hgb 17.3 H Hct 51.0 H MCV 88.5 MCH 30.1 MCHC 34.0 RDW 13.2 Plt Count 309 MPV 9.1 Neut % (Auto) 83.1 H Lymph % (Auto) 12.5 Banner % (Auto) 3.8 Eos % (Auto) 0.1 Baso % (Auto) 0.5 Neut # (Auto) 11.0 H Lymph # (Auto) 1.6 Banner # (Auto) 0.5 Eos # (Auto) 0.0 Baso # (Auto) 0.1 WBC Differential . Differential Comment Auto diff final PT INR APTT Sodium 141 Potassium 3.6 Chloride 104 Carbon Dioxide 22.5 Anion Gap 15 BUN 10 Creatinine 0.96 Estimated GFR 59 L POC Glucose Random Glucose 192 H Calcium 9.2 Total Bilirubin 1.5 H AST 18 ALT 22 Alkaline Phosphatase 114 Total Creatine Kinase 53 Troponin I Less than 0.02 L B-Natriuretic Peptide 24 Total Protein 8.2 Albumin 4.5 Lipase 144 Urine Color Urine Clarity Urine pH Ur Specific [place] Urine Protein Urine Glucose (UA) Urine Ketones Urine Occult Blood Urine Nitrate Urine Bilirubin Urine Urobilinogen Ur Leukocyte Esterase Urine RBC Urine WBC Ur Squamous Epith Cells Urine Bacteria Hyaline Casts Granular Casts Waxy Casts Urine Mucus Micro UA Comment Ur Microscopic Review Urine Culture Comments Blood Type Blood Type Recheck Antibody Screen 09/02/18 09/02/18 09/02/18 02:38 03:26 04:32 WBC RBC Hgb Hct MCV MCH MCHC RDW Plt Count MPV Neut % (Auto) Lymph % (Auto) Banner % (Auto) Eos % (Auto) Baso % (Auto) Neut # (Auto) Lymph # (Auto) Banner # (Auto) Eos # (Auto) Baso # (Auto) WBC Differential Differential Comment PT 10.3 INR 1.0 APTT 24.0 L Sodium Potassium Chloride Carbon Dioxide Anion Gap BUN Creatinine Estimated GFR POC Glucose Random Glucose Calcium Total Bilirubin AST ALT Alkaline Phosphatase Total Creatine Kinase Troponin I B-Natriuretic Peptide Total Protein Albumin Lipase Urine Color Shelley Urine Clarity Cloudy H Urine pH 5.0 Ur Specific [place] 1.025 Urine Protein 100 H Urine Glucose (UA) 50 Urine Ketones Trace H Urine Occult Blood Negative Urine Nitrate Negative Urine Bilirubin Negative Urine Urobilinogen Less than 2 Ur Leukocyte Esterase Negative Urine RBC 2 Urine WBC 5 Ur Squamous Epith Cells 3 Urine Bacteria Rare H Hyaline Casts 63 Granular Casts 13 Waxy Casts 1 Urine Mucus Many H Micro UA Comment Culture not ind Ur Microscopic Review Not Reportable Urine Culture Comments Culture not ind Blood Type O Negative Blood Type Recheck Required Antibody Screen Negative 09/02/18 06:19 WBC RBC Hgb Hct MCV MCH MCHC RDW Plt Count MPV Neut % (Auto) Lymph % (Auto) Banner % (Auto) Eos % (Auto) Baso % (Auto) Neut # (Auto) Lymph # (Auto) Banner # (Auto) Eos # (Auto) Baso # (Auto) WBC Differential Differential Comment PT INR APTT Sodium Potassium Chloride Carbon Dioxide Anion Gap BUN Creatinine Estimated GFR POC Glucose 136 H Random Glucose Calcium Total Bilirubin AST ALT Alkaline Phosphatase Total Creatine Kinase Troponin I B-Natriuretic Peptide Total Protein Albumin Lipase Urine Color Urine Clarity Urine pH Ur Specific [place] Urine Protein Urine Glucose (UA) Urine Ketones Urine Occult Blood Urine Nitrate Urine Bilirubin Urine Urobilinogen Ur Leukocyte Esterase Urine RBC Urine WBC Ur Squamous Epith Cells Urine Bacteria Hyaline Casts Granular Casts Waxy Casts Urine Mucus Micro UA Comment Ur Microscopic Review Urine Culture Comments Blood Type Blood Type Recheck Antibody Screen - Imaging Impressions Chest X-Ray 09/02/18 02:26 CONCLUSION: 1. No acute cardiopulmonary disease. Head CT 09/02/18 03:40 CONCLUSION: 1. No acute intracranial abnormality. Findings were personally discussed with Dr. Vines at 3:58 AM. Head CTA 09/02/18 03:40 CONCLUSION: 1. Unremarkable CTA examination of the head. Specifically, no evidence for large vessel occlusion. Neck CTA 09/02/18 03:40 CONCLUSION: 1. Eccentric mixed plaque in the right carotid bulb extending to the internal carotid origin with resultant 60% stenosis. 2. Circumferential calcified plaque extending from the left carotid bulb to the internal carotid origin with resultant 45-50% stenosis. 3. Patent vertebral arteries bilaterally. 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 Noncompliance with medications recently CT brain carotids negative Recommendations Post TPA order set Blood pressure less than 180/100 all times No blood thinners for at least [address] brain scan performed and is negative for intracranial hemorrhage Okay to raise head of bed Therapy MRI brain Echo Lipid, TSH, B12, HbA1c Telemetry SCDs Appreciate critical care
[2018-09-02] MEDS: Insulin NovoLOG Aspart Correctional Sugar Inj SQ SCH ×3 (08:34→18:31)
[2018-09-02] MEDS ORDERED: Famotidine PF Inj 20 MG/2 ML Vial IV.PUSH SCH (09:00)
[2018-09-02] MEDS ORDERED: Aspirin 325 MG Tablet PO SCH (09:00)
--- NOTE | 2018-09-02 12:19 | MR ---
EXAM DATE: 09/02/2018 11:28 AM EDT AGE/SEX: 63 years / Female INDICATIONS: CVA. CLINICAL DATA: This is the patient's subsequent encounter. Patient reports that signs and symptoms h ave been present for 1 day and indicates a pain score of 0/10. MEDICAL/SURGICAL HISTORY: Hypertension. Myocardial infarction. Cholecystectomy. Hysterectomy. Appendectomy. Cardiac stents. [place] [facility] [place] [facility] [place] [facility] [place] [facility] [place]. . TECHNIQUE: Multiplanar, multisequence examination of the brain was performed without contrast. FINDINGS: Cerebrum: Scattered signal abnormalities are noted throughout the right frontoparietal and right occ ipital lobe on the diffusion-weighted images suggestive of acute infarcts. No acute hemorrhage, midli ne shift or extra-axial bleed is noted. White Matter: No significant signal abnormalities are seen in the white matter. Posterior Fossa: The cerebellum and brainstem are intact. The 4th ventricle is midline. The cerebel lopontine angle is unremarkable. The cerebellar tonsils are normal in position. Diffusion Imaging: No focal areas of restricted diffusion are seen. No evidence of acute infarction . Extracranial: The visualized portions of the orbits and paranasal sinuses are unremarkable. CONCLUSION: 1. Scattered signal abnormalities are noted throughout the right frontoparietal and right occipital lobe on the diffusion-weighted images suggestive of acute infarcts. 2. No acute hemorrhage, midline shift or extra-axial bleed is noted. Electronically signed by: Jerman Espinal MD 09/02/2018 12:18 PM EDT
--- NOTE | 2018-09-02 15:10 | ECHRPT ---
Indication: SEPSIS CONCLUSIONS The left ventricular systolic function is normal with an estimated ejection fraction in the range of 60-65%. Normal left ventricular size. Wall thickness is normal. No regional wall motion abnormalities are present. Trace mitral valve regurgitation. BP: / HR: Rhythm: Sinus MEASUREMENTS (Male / Female) Normal Values Technical Quality:Fair 2D ECHO LV Diastolic Diameter PLAX 4.7 cm 4.2 - 5.9 / 3.9 - 5.3 cm LV Systolic Diameter PLAX 3.3 cm IVS Diastolic Thickness 1.0 cm 0.6 - 1.0 / 0.6 - 0.9 cm LVPW Diastolic Thickness 1.0 cm 0.6 - 1.0 / 0.6 - 0.9 cm LV Relative Wall Thickness 0.4 LVOT Diameter 1.7 cm LA Systolic Diameter LX 3.5 cm 3.0 - 4.0 / 2.7 - 3.8 cm M-MODE Aortic Root Diameter MM 2.5 cm LA Systolic Diameter MM 3.6 cm LA Ao Ratio MM 1.4 AV Cusp Separation MM 2.2 cm DOPPLER AV Peak Velocity 145.0 cm/s AV Peak Gradient 8.4 mmHg LVOT Peak Velocity 101.0 cm/s LVOT Peak Gradient 4.1 mmHg AV Area Cont Eq pk 1.6 cm MV Area PHT 5.8 cm Mitral E Point Velocity 64.2 cm/s Mitral A Point Velocity 96.3 cm/s Mitral E to A Ratio 0.7 LV E' Lateral Velocity 10.8 cm/s Mitral E to LV E' Lateral Ratio 5.9 LV E' Septal Velocity 9.4 cm/s Mitral E to LV E' Septal Ratio 6.9 PV Peak Velocity 130.0 cm/s PV Peak Gradient 6.8 mmHg FINDINGS LEFT VENTRICLE The left ventricular systolic function is normal with an estimated ejection fraction in the range of 60-65%. Normal left ventricular size. Wall thickness is normal. No regional wall motion abnormalities are present. RIGHT VENTRICLE Normal right ventricular size and systolic function. LEFT ATRIUM The left atrial size is normal. RIGHT ATRIUM The right atrial size is normal. ATRIAL SEPTUM Normal atrial septal thickness without atrial level shunting by limited color doppler interrogation. AORTA The aortic root and proximal ascending aorta are normal in size on limited imaging. MITRAL VALVE Structurally normal mitral valve. Trace mitral valve regurgitation. AORTIC VALVE Trileaflet aortic valve. No aortic valve stenosis or regurgitation. TRICUSPID VALVE Structurally normal tricuspid valve. No tricuspid valve stenosis or regurgitation. PULMONARY VALVE The pulmonary valve is not well visualized. VESSELS The inferior vena cava is normal in size. PERICARDIUM No pericardial effusion. Grabiel Weeks MD, FACC, [facility] [place] (Electronically Signed) Final Date:02 September 2018 15:10
[2018-09-02] MEDS ORDERED: Influenza (Quadrivalent) Vaccine 0.5 ML Syringe IM ONE (18:00)
--- NOTE | 2018-09-02 21:05 | ECG ---
Date Performed: 09/02/2018 Time Performed: 01:42:05 PTAGE: 63 years EKG: Sinus rhythm POSSIBLE LEFT ATRIAL ENLARGEMENT LEFT ANTERIOR FASCICULAR BLOCK POSSIBLE LEFT VENTRICULAR HYPERTROPH Y ABNORMAL ECG NO PREVIOUS TRACING DOCTOR: Fabienne Arzola Interpretating Date/Time 09/02/2018 21:03:15
[2018-09-03] MEDS ORDERED: Chlorhexidine Gluconate 2% 1 Pack (2 Cloths) TOPICAL PRN (04:00)
--- NOTE | 2018-09-03 04:37 | CT ---
EXAM DATE: 09/03/2018 4:07 AM EDT AGE/SEX: 63 years / Female INDICATIONS: Cerebrovascular attack. Follow up post TPA CLINICAL DATA: This is the patient's subsequent encounter. Patient reports that signs and symptoms h ave been present for 1 day and indicates a pain score of 0/10. MEDICAL/SURGICAL HISTORY: Non-responsive. Non-responsive. RADIATION DOSE: 36.77 CTDI (mGy) COMPARISON: [facility] [place]/O CONTRAST, 09/02/2018. . TECHNIQUE: CT of the head without contrast. Using automated exposure control and adjustment of the mA and/or kV according to patient size, radiation dose was kept as low as reasonably achievable to ob tain optimal diagnostic quality images. DICOM format image data is available electronically for revi ew and comparison. FINDINGS: Cerebrum: The ventricles are normal for age. No evidence of midline shift, mass lesion, hemorrhage o r acute infarction. No extraaxial fluid collections are seen. Posterior Fossa: The cerebellum and brainstem are intact. The 4th ventricle is midline. The cerebe llopontine angle is unremarkable. Extracranial: The visualized portion of the orbits is intact. Skull: The calvaria is intact. No evidence of skull fracture. CONCLUSION: 1. No acute intracranial abnormality. Specifically, no evidence for intercurrent hemorrhage. . Electronically signed by: Willie Tristan MD 09/03/2018 4:36 AM EDT
[2018-09-03 05:38] LABS: Baso # (Auto) 0.1 th/mm3 (0.0-0.2); Baso % (Auto) 0.5 % (0.0-2.0); Eos % (Auto) 0.2 % (0.0-4.0); Hematocrit 40.9 % (35.0-46.0); Hemoglobin 14.2 gm/dL (11.6-15.3); Lymph % (Auto) 16.6 % (9.0-44.0); Mean Corpuscular HGB Conc 34.7 % (32.0-36.0); Mean Corpuscular Hemoglobin 30.8 pg (27.0-34.0); Mean Corpuscular Volume 88.8 fL (80.0-100.0); Mean Platelet Volume 8.4 fL (7.0-11.0); Mono # (Auto) 0.7 th/mm3 (0.0-0.9); Mono % (Auto) 5.7 % (0.0-8.0); Neut # (Auto) 9.2 th/mm3 (1.8-7.7); Platelet Count 203 th/mm3 (150-450); Red Blood Count 4.61 mil/mm3 (4.00-5.30); Red Cell Distribution Width 13.4 % (11.6-17.2); White Blood Count 11.9 th/mm3 (4.0-11.0)
[2018-09-03 06:10] LABS: Alanine Aminotransferase 18 U/L (10-53); Albumin 3.5 g/dL (3.4-5.0); Alkaline Phosphatase 88 U/L (45-117); Anion Gap 10 meq/L (5-15); Aspartate Aminotransferase 25 U/L (15-37); Blood Urea Nitrogen 10 mg/dL (7-18); Calcium 8.3 mg/dL (8.5-10.1); Carbon Dioxide 24.2 meq/L (21.0-32.0); Chloride 108 meq/L (98-107); Chol/HDL Ratio 4.55 Ratio; Cholesterol 207 mg/dL (120-200); Glomerular Filtration Rate 72 mL/min (>89); Glucose,Random 127 mg/dL (74-106); HDL Cholesterol 45.4 mg/dL (40.0-60.0); LDL Cholesterol,Calculated 126 mg/dL (0-99); Phosphorus 2.4 mg/dL (2.5-4.9); Potassium 3.3 meq/L (3.5-5.1); Sodium 142 meq/L (136-145); Total Protein 6.8 g/dL (6.4-8.2); Triglycerides 177 mg/dL (42-150)
--- NOTE | 2018-09-03 07:17 | P.PNNEU ---
Subjective Subjective Comments: feels stronger, no gaxiola. c/o n/v emesis feeling, occurred on arrival in er Active Medications: Active Medications Al Hydroxide/Mg Hydroxide (Milk Of Magnesia Liq) 30 ml PO Q12H PRN PRN Reason: Mild Constipation Bisacodyl (Dulcolax Supp) 10 mg RECTAL DAILY PRN PRN Reason: SEVERE CONSITIPATION Chlorhexidine Gluconate (Chlorhexidine 2% Cloth) 3 pack TOPICAL DAILY@0400 [facility] Stop: 09/08/18 03:59 Chlorhexidine Gluconate (Chlorhexidine 2% Cloth) 3 pack TOPICAL DAILY@0400 PRN PRN Reason: Extra cloth needed Stop: 09/08/18 03:59 Dextrose (D50w Vial) 50 ml IV.PUSH UNSCH PRN PRN Reason: PER HYPOGLYCEMIA PROTOCOL Dextrose (D50w Vial) 50 ml IV.PUSH UNSCH PRN PRN Reason: PER HYPOGLYCEMIA PROTOCOL Glucagon (Glucagon Inj) 1 mg OTHER PRN PRN PRN Reason: for Hypoglycemia Protocol Glucagon (Glucagon Inj) 1 mg OTHER UNSCH PRN PRN Reason: for Hypoglycemia Protocol Sodium Chloride (Ns Inj) 1,000 mls @ 70 mls/hr IV.CONT .[id number] [facility] Last Admin: 09/02/18 19:50 Dose: 70 mls/hr Nicardipine HCl 25 mg/ Sodium (Chloride) 250 mls @ 25 mls/hr IV.CONT TITRATE PRN; Protocol PRN Reason: Per Protocol Acetaminophen (Ofirmev Inj) 650 mg in 65 mls @ 400 mls/hr IV.SIG Q6H PRN PRN Reason: fever, pain 1-10 Magnesium Sulfate 4 gm/ Sodium (Chloride) 100 mls @ 50 mls/hr IV.SIG UNSCH PRN PRN Reason: For Magnesium 0.9 - 1.1 mg/dL Magnesium Sulfate 2 gm/ Sodium (Chloride) 100 mls @ 50 mls/hr IV.SIG UNSCH PRN PRN Reason: For Magnesium 1.2 - 1.6 mg/dL Potassium Chloride (Kcl 40 Meq Premix Inj) 40 meq in 100 mls @ 25 mls/hr IV.SIG Q2H PRN PRN Reason: For Potassium 2.8 - 3.2 mEq/L Potassium Chloride (Kcl 20 Meq Premix Inj) 20 meq in 100 mls @ 50 mls/hr IV.SIG Q2H PRN PRN Reason: For Potassium 3.3 - 3.5 mEq/L Potassium Chloride (Kcl 40 Meq Premix Inj) 40 meq in 100 mls @ 25 mls/hr IV.SIG UNSCH PRN PRN Reason: For Potassium 3.3 - 3.5 mEq/L Potassium Chloride (Kcl 20 Meq Premix Inj) 20 meq in 100 mls @ 50 mls/hr IV.SIG Q2H PRN PRN Reason: For Potassium 2.8 - 3.2 mEq/L Potassium Phosphate 30 mmol/ (Sodium Chloride) 260 mls @ 42 mls/hr IV.SIG UNSCH PRN PRN Reason: SEE LABEL COMMENTS Sodium Phosphate 30 mmol/ (Sodium Chloride) 260 mls @ 42 mls/hr IV.SIG UNSCH PRN PRN Reason: For Phosphorus < 2.5 mg/dL Insulin Aspart (Novolog Insulin Correctional Sugar Inj) 0 unit SQ Q6HR [facility]; Protocol Last Admin: 09/02/18 18:31 Dose: Not Given Labetalol HCl (Trandate Inj) 10 mg IV.PUSH Q1H PRN PRN Reason: Acute Pain Last Admin: 09/02/18 11:18 Dose: 10 mg Lactulose (Lactulose Liq) 30 ml PO DAILY PRN PRN Reason: SEVERE CONSITIPATION Magnesium Oxide (Mag-Ox) 800 mg PO UNSCH PRN PRN Reason: For Magnesium 1.2 - 1.6 mg/dL Ondansetron HCl (Zofran Inj) 4 mg IV.PUSH Q6H PRN PRN Reason: NAUSEA Last Admin: 09/03/18 05:03 Dose: 4 mg Pantoprazole Sodium (Protonix) 40 mg PO DAILY [facility] Last Admin: 09/02/18 09:06 Dose: Not Given Potassium Bicarb/Potassium Chloride (K-Lyte Cl Eff) 50 meq PO UNSCH PRN PRN Reason: For Potassium 3.3 - 3.5 mEq/L Potassium Phosphate (K-Phos Original) 2,000 mg PO Q4H PRN PRN Reason: Phosphorus Less Than 2.5 mg/dL Potassium Phosphate (K-Phos Original) 2,000 mg PO UNSCH PRN PRN Reason: SEE LABEL COMMENTS Pravastatin Sodium (Pravachol) 40 mg PO HS [facility] Last Admin: 09/02/18 20:19 Dose: 40 mg Prochlorperazine Edisylate (Compazine Inj) 5 mg IV.PUSH Q6H PRN PRN Reason: BREAKTHROUGH NAUSEA Sennosides (Senokot) 17.2 mg PO Q12H PRN PRN Reason: Moderate Constipation Sodium Chloride (Ns Flush) 2 ml IV.FLUSH BID LORA Last Admin: 09/03/18 03:00 Dose: Not Given Sodium Chloride (Ns Flush) 2 ml IV.FLUSH PRN PRN PRN Reason: FLUSH AFTER USING IV ACCESS Allergies/Adverse Reactions: Allergies Allergy/AdvReac Type Severity Reaction Status Date / Time codeine AdvReac Mild Nausea Verified 09/02/18 02:25 vomiting Review of Systems All other systems reviewed negative except as stated in HPI Physical Exam Vital signs: Vital Signs 09/02/18 07:38 09/02/18 08:00 09/02/18 08:08 Temperature Pulse Rate 96 H 96 H 96 H Respiratory Rate 19 30 H 19 Blood Pressure 146/72 H 163/83 H Pulse Oximetry 97 98 97 09/02/18 08:16 09/02/18 08:21 09/02/18 08:38 Temperature 99.4 F Pulse Rate 95 H 107 H Respiratory Rate 19 17 Blood Pressure 163/83 H 187/91 H Pulse Oximetry 99 99 09/02/18 08:45 09/02/18 09:00 09/02/18 10:00 Temperature Pulse Rate 101 H 98 H 96 H Respiratory Rate 18 18 17 Blood Pressure 181/83 H 148/74 H 172/78 H Pulse Oximetry 97 98 97 09/02/18 11:00 09/02/18 12:00 09/02/18 12:11 Temperature 99.2 F Pulse Rate 96 H 101 H Respiratory Rate 22 19 Blood Pressure 181/84 H 165/75 H Pulse Oximetry 98 94 L 09/02/18 13:00 09/02/18 14:00 09/02/18 15:00 Temperature Pulse Rate 97 H 97 H 96 H Respiratory Rate 19 18 20 Blood Pressure 154/69 H 150/72 H 148/70 H Pulse Oximetry 93 L 96 94 L 09/02/18 16:00 09/02/18 17:00 09/02/18 17:12 Temperature 99.2 F Pulse Rate 97 H 105 H Respiratory Rate 42 H 20 Blood Pressure 147/71 H 159/81 H Pulse Oximetry 96 96 09/02/18 18:00 09/02/18 19:00 09/02/18 20:00 Temperature Pulse Rate 95 H 99 H 94 H Respiratory Rate 21 Blood Pressure 164/92 H 167/85 H 164/92 H Pulse Oximetry 95 09/02/18 20:42 09/02/18 21:00 09/02/18 22:00 Temperature Pulse Rate 94 H 92 H Respiratory Rate Blood Pressure 168/77 H 179/82 H Pulse Oximetry 95 09/02/18 23:00 09/03/18 00:00 09/03/18 01:00 Temperature Pulse Rate 92 H 89 89 Respiratory Rate Blood Pressure 175/79 H 166/76 H 164/75 H Pulse Oximetry 09/03/18 02:00 09/03/18 03:00 09/03/18 05:00 Temperature Pulse Rate 91 H 90 87 Respiratory Rate Blood Pressure 163/77 H 173/81 H 176/84 H Pulse Oximetry 09/03/18 06:00 Temperature 98.4 F Pulse Rate 90 Respiratory Rate 14 Blood Pressure 164/74 H Pulse Oximetry 97 Intake & Output 09/02/18 09/03/18 09/03/18 18:59 06:59 18:59 Intake Total 1200 / 1200 2100 / 2100 Balance 1200 / 1200 2100 / 2100 Weight 82.4 kg 83.1 kg Intake: IV 900 / 900 NS Inj 1,000 ML @ 70 mls/hr IV. 900 / 900 CONT .[id number] [facility] Rx#:[id number] Oral 1200 / 1200 1200 / 1200 Other: # Voids 6 6 Date of Last Bowel Movement 09/02/18 09/02/18 # Bowel Movements 1 1 Weight On Admission 81.5 kg Narrative: GENERAL: in NAD, SKIN: Warm and dry. HEAD: Atraumatic. Normocephalic. EYES: Pupils equal and round. No scleral icterus. ENT: No nasal bleeding or discharge. Mucous membranes pink and moist. NECK: Trachea midline. No JVD. CARDIOVASCULAR: Regular rate and rhythm. RESPIRATORY: No accessory muscle use. GASTROINTESTINAL: Abdomen soft, non-tender, nondistended. MUSCULOSKELETAL: Extremities without clubbing, cyanosis, or edema. No obvious deformities. NEUROLOGICAL: Awake and alert. Oriented x3, dysarthric speech, no aphasia, fluent articulate, No facial asymmetry, OU 3-2mm, eomi, VFF, No drift, Motor grossly within normal limits. Left upper extremity weakness4+ 5 with dystaxia proportional to level weakness, no drift, able to raise it off the bed difficulty with opening and closing her hand however, left lower extremity strength 5- out of 5 no drift no neglect. Tone normal in all 4 limbs, Sensory normal in all 4 extremities to pin, msr 1-2+ sym, no clonus, planterflexor, PSYCHIATRIC: Appropriate mood and affect; insight and judgment normal. - Constitutional no acute distress - Routine HEENT Exam Head: Present: normocephalic Objective Laboratory Results - last 24 hr 09/02/18 09/02/18 09/02/18 02:38 06:45 12:26 WBC RBC Hgb Hct MCV MCH MCHC RDW Plt Count MPV Neut % (Auto) Lymph % (Auto) [place] % (Auto) Eos % (Auto) Baso % (Auto) Neut # (Auto) Lymph # (Auto) [place] # (Auto) Eos # (Auto) Baso # (Auto) WBC Differential Differential Comment APTT Sodium Potassium Chloride Carbon Dioxide Anion Gap BUN Creatinine Estimated GFR POC Glucose 122 H Random Glucose Calcium Phosphorus Magnesium Total Bilirubin AST ALT Alkaline Phosphatase Total Protein Albumin Triglycerides Cholesterol LDL Cholesterol, Calc HDL Cholesterol Cholesterol/HDL Ratio TSH 1.720 Nasal Screen MRSA (PCR) Not detected 09/02/18 09/03/18 09/03/18 18:10 04:35 05:15 WBC 11.9 H RBC 4.61 Hgb 14.2 D Hct 40.9 MCV 88.8 MCH 30.8 MCHC 34.7 RDW 13.4 Plt Count 203 D MPV 8.4 Neut % (Auto) 77.0 H Lymph % (Auto) 16.6 [place] % (Auto) 5.7 Eos % (Auto) 0.2 Baso % (Auto) 0.5 Neut # (Auto) 9.2 H Lymph # (Auto) 2.0 [place] # (Auto) 0.7 Eos # (Auto) 0.0 Baso # (Auto) 0.1 WBC Differential . Differential Comment Auto diff final APTT Sodium Potassium Chloride Carbon Dioxide Anion Gap BUN Creatinine Estimated GFR POC Glucose 117 H 132 H Random Glucose Calcium Phosphorus Magnesium Total Bilirubin AST ALT Alkaline Phosphatase Total Protein Albumin Triglycerides Cholesterol LDL Cholesterol, Calc HDL Cholesterol Cholesterol/HDL Ratio TSH Nasal Screen MRSA (PCR) 09/03/18 09/03/18 05:15 05:15 WBC RBC Hgb Hct MCV MCH MCHC RDW Plt Count MPV Neut % (Auto) Lymph % (Auto) [place] % (Auto) Eos % (Auto) Baso % (Auto) Neut # (Auto) Lymph # (Auto) [place] # (Auto) Eos # (Auto) Baso # (Auto) WBC Differential Differential Comment APTT 24.0 L Sodium 142 Potassium 3.3 L Chloride 108 H Carbon Dioxide 24.2 Anion Gap 10 BUN 10 Creatinine 0.80 Estimated GFR 72 L POC Glucose Random Glucose 127 H Calcium 8.3 L D Phosphorus 2.4 L Magnesium 2.0 Total Bilirubin 2.0 H AST 25 ALT 18 Alkaline Phosphatase 88 Total Protein 6.8 D Albumin 3.5 D Triglycerides 177 H Cholesterol 207 H LDL Cholesterol, Calc 126 H HDL Cholesterol 45.4 Cholesterol/HDL Ratio 4.55 TSH Nasal Screen MRSA (PCR) Review/Management - Diagnosis (1) Acute lacunar stroke Code(s): I63.9 - Cerebral infarction, unspecified Status: Acute Current Visit: Yes (2) Hypertension Code(s): I10 - Essential (primary) hypertension Status: Acute Current Visit : Yes (3) Coronary artery disease Code(s): I25.10 - Atherosclerotic heart disease of [place] coronary artery without angina pectoris Status: Acute Current Visit: Yes (4) Dyslipidemia Code(s): E78.5 - Hyperlipidemia, unspecified Status: Acute Current Visit: Yes - Review/Management Plan: 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 Noncompliance with medications recently CT brain carotids negative mri brain rt hemispheric strokes doing well nihss 2 Recommendations plavix, aspirin cardio eval f/u mra/carotid. suspicious for rt carotid as source of stroke vs cardioembolic therapy ok for 5th floor with tele Appreciate critical care
[2018-09-03] MEDS ORDERED: Acetaminophen 325 MG Tablet PO PRN (07:39)
--- NOTE | 2018-09-03 07:56 | P.PNCC ---
Subjective Subjective Remarks/Hospital Course: This is a 63-year-old female. Date of admission 09/02/2018. Past medical history includes depression, coronary disease with history of myocardial infarction, hypertension, hyperlipidemia. She presents originally to [facility] ED with a chief complaint of chest pain, nausea and vomiting. She received ondansetron in the ED. Initial troponin is less than 0.02. EKG revealed possible incomplete right bundle branch block otherwise unremarkable. At 330 this a.m., patient experienced left-sided facial droop and left-sided weakness and numbness. Stroke alert was called. CT brain revealed no acute intracranial findings. CT angiogram of the brain revealed no acute large occlusions. CT Angio of the neck revealed right carotid bulb 60%, left carotid bulb 45-50%. Vertebral is patent. Dr. Howell/neurology was consulted. Recommended alteplase 7.3 mg bolus followed by 65.5 mg with remaining hour which received. MRI brain planned for today. Repeat CT brain imaging in a.m. or earlier 09/03. On examination, tongue does deviate to the left. Slight facial droop and left. Subjective weakness with pronator drift on the left upper extremity with numbness. Decreased sensation to light touch and pinprick.. Strength appears to be 5 out of 5 in the right upper and lower and left lower extremity. SUBJECTIVE 09/03: Exam essentially unchanged. Continues with left facial droop, tongue deviates left, left upper extremity weakness and paresthesias. Objective Vital Signs / I&O: Vital Signs 09/02/18 08:00 09/02/18 08:08 09/02/18 08:16 Temperature 99.4 F Pulse Rate 96 H 96 H 95 H Respiratory Rate 30 H 19 19 Blood Pressure 163/83 H 163/83 H Pulse Oximetry 98 97 09/02/18 08:21 09/02/18 08:38 09/02/18 08:45 Temperature Pulse Rate 107 H 101 H Respiratory Rate 17 18 Blood Pressure 187/91 H 181/83 H Pulse Oximetry 99 99 97 09/02/18 09:00 09/02/18 10:00 09/02/18 11:00 Temperature Pulse Rate 98 H 96 H 96 H Respiratory Rate 18 17 22 Blood Pressure 148/74 H 172/78 H 181/84 H Pulse Oximetry 98 97 98 09/02/18 12:00 09/02/18 12:11 09/02/18 13:00 Temperature 99.2 F Pulse Rate 101 H 97 H Respiratory Rate 19 19 Blood Pressure 165/75 H 154/69 H Pulse Oximetry 94 L 93 L 09/02/18 14:00 09/02/18 15:00 09/02/18 16:00 Temperature 99.2 F Pulse Rate 97 H 96 H 97 H Respiratory Rate 18 20 42 H Blood Pressure 150/72 H 148/70 H 147/71 H Pulse Oximetry 96 94 L 96 09/02/18 17:00 09/02/18 17:12 09/02/18 18:00 Temperature Pulse Rate 105 H 95 H Respiratory Rate 20 21 Blood Pressure 159/81 H 164/92 H Pulse Oximetry 96 09/02/18 19:00 09/02/18 20:00 09/02/18 20:42 Temperature Pulse Rate 99 H 94 H Respiratory Rate Blood Pressure 167/85 H 164/92 H Pulse Oximetry 95 95 09/02/18 21:00 09/02/18 22:00 09/02/18 23:00 Temperature Pulse Rate 94 H 92 H 92 H Respiratory Rate Blood Pressure 168/77 H 179/82 H 175/79 H Pulse Oximetry 09/03/18 00:00 09/03/18 01:00 09/03/18 02:00 Temperature Pulse Rate 89 89 91 H Respiratory Rate Blood Pressure 166/76 H 164/75 H 163/77 H Pulse Oximetry 09/03/18 03:00 09/03/18 05:00 09/03/18 06:00 Temperature 98.4 F Pulse Rate 90 87 90 Respiratory Rate 14 Blood Pressure 173/81 H 176/84 H 164/74 H Pulse Oximetry 97 Intake & Output 09/02/18 09/03/18 09/03/18 18:59 06:59 18:59 Intake Total 1200 / 1200 2099 / 2099 Balance 1200 / 1200 2099 / 2099 Weight 82.4 kg 83.1 kg Intake: IV 900 / 900 NS Inj 1,000 ML @ 70 mls/hr IV. 900 / 900 CONT .[id number] [facility] Rx#:[id number] Oral 1200 / 1200 1200 / 1200 Other: # Voids 6 6 Date of Last Bowel Movement 09/02/18 09/02/18 # Bowel Movements 1 1 Weight On Admission 81.5 kg Result Diagrams: 09/03/18 05:15 09/03/18 05:15 Imaging: Chest X-Ray 09/02/18 02:26 CONCLUSION: 1. No acute cardiopulmonary disease. Head CT 09/02/18 03:40 CONCLUSION: 1. No acute intracranial abnormality. Findings were personally discussed with Dr. Vines at 3:58 AM. Head CTA 09/02/18 03:40 CONCLUSION: 1. Unremarkable CTA examination of the head. Specifically, no evidence for large vessel occlusion. Neck CTA 09/02/18 03:40 CONCLUSION: 1. Eccentric mixed plaque in the right carotid bulb extending to the internal carotid origin with resultant 60% stenosis. 2. Circumferential calcified plaque extending from the left carotid bulb to the internal carotid origin with resultant 45-50% stenosis. 3. Patent vertebral arteries bilaterally. Head MRI 09/02/18 05:58 CONCLUSION: 1. Scattered signal abnormalities are noted throughout the right frontoparietal and right occipital lobe on the diffusion-weighted images suggestive of acute infarcts. 2. No acute hemorrhage, midline shift or extra-axial bleed is noted. Head CT 09/03/18 04:06 CONCLUSION: 1. No acute intracranial abnormality. Specifically, no evidence for intercurrent hemorrhage. . Objective Remarks: GENERAL: 63-year-old female currently resting in bed in no acute distress on room air SKIN: Warm and dry. No rash HEAD: Atraumatic. Normocephalic. EYES: Pupils equal and round about 2 mm bilaterally and react. No scleral icterus. No injection or drainage. ENT: No nasal bleeding or discharge. Mucous membranes pink and moist. NECK: Trachea midline. No JVD. CARDIOVASCULAR: Regular rate and rhythm. S1, S2 no S4. Without murmur RESPIRATORY: No accessory muscle use. Clear to auscultation. Breath sounds equal bilaterally. GASTROINTESTINAL: Abdomen soft, non-tender, nondistended. Hypoactive bowel sounds appreciated MUSCULOSKELETAL: Extremities without significant peripheral edema. No obvious deformities. NEUROLOGICAL: Awake and alert. Slight left facial droop. Tongue deviates to the left. Pupils as above. Positive pronator drift on left. Strength 3/5 left upper semi-. 5/5 left lower extremity. Strength 5 out of 5 right upper lower extremity. Normal sensation. Decreased sensation to light touch and pinprick left upper extremity. DTRs are equal symmetric bilaterally. Gait was not assessed. Assessment and Plan - Assessment and Plan Plan: Neuro/Psych: Depressive disorder NOS Acute CVA status post alteplase -left facial droop/tongue deviation, left upper extremity weakness Right frontoparietal occipital CT brain revealed no acute intracranial findings CT angiogram revealed no large occlusions. No acute findings. CT angiogram of the neck revealed right carotid bulb stenosis 60%. Left carotid bulb stenosis 45-50%. Vertebrals patent. Received 7.3 mg of alteplase to ED bolus followed by 65.5 mg infusion MRI brain revealed right frontoparietal occipital infarcts Repeat CT brain 24 hours post alteplase infusion reveals no hemorrhage Goal keep systolic blood pressure less than 180, diastolic pressure less than 105. Post alteplase infusion PT/OT/ST evaluate and treat. 2D echocardiogram as below Hemoglobin A1c pending. Lipid panel as below Neurological consultation with Dr. Boy Macedo appreciated Resuming sertraline 100 mg daily. Resume when clinically indicated Ofirmev 650 mg IV every 6 hours as needed fever/pain 1 through 10 CV: Essential hypertension Hyperlipidemia Coronary artery disease Carotid artery disease -60% right carotid bulb, 50% left carotid bulb Initial troponin less than 0.02. EKG revealed normal sinus rhythm 99. Normal NH, QT intervals. Possible incomplete right bundle branch block. No ST changes. Previously on aspirin 325 mg daily. Resume today Home medication for hypertension include lisinopril 5 mg daily metoprolol tartrate 50 mg twice daily. Resume 09/03 Home medications for dyslipidemia include omega-3 fatty acid 1000 mg twice daily. Patient is also on pravastatin 40 mg daily. Noted elevated cholesterol and LDL on lipid panel. Resumed. As needed labetalol 10 mg IV every 1 hours and nicardipine drip titrate to keep systolic blood pressure less than 180/diastolic blood pressure 105 status post alteplase infusion 2D echocardiogram The left ventricular systolic function is normal with an estimated ejection fraction in the range of 60-65%. Normal left ventricular size. No regional wall motion abnormalities are present. Trace mitral valve regurgitation Resp: Nasal cannula to maintain saturations greater than or equal to 92% Incentive spirometry while awake Chest x-ray revealed no acute cardiopulmonary findings GI: Elevated total bilirubin Mechanical soft/chopped meats diet Pantoprazole for GI prophylaxis Docusate sodium/senna 1 tablet twice daily for bowel regimen OD acetone 4 mg IV every 6 hours as needed nausea : Haley catheter only for urinary retention UA no findings for infection on admission Endo: Hyperglycemia Sliding scale insulin Accu-Cheks to maintain euglycemia every 6 hours Check hemoglobin A1c pending. TSH was 1.72. Renal: Creatinine currently within normal limits Monitor urine output Accurate I's and O's Heme: Leukocytosis Monitor CBC daily. Follow trends. No indication for transfusion of blood products at this time ID: Monitor for signs and symptomatology infection FEN: Hypokalemia Hypophosphatemia Replace electrolytes as clinically indicated per ICU electrolyte protocol. 30 mmol K-Phos IV x1 now. Currently normal saline at 70 cc an hour. Discontinued 09/03 MSK: PT/OT evaluate and treat Access -Utilize peripheral IV. Central line if indicated Prophylaxis -GI -pantoprazole -DVT -SCDs/holding pharmacological prophylaxis 24 hours post alteplase infusion start heparin subcu 09/03 Level 2 follow-up. Stable from critical care medicine standpoint. Transfer from ICU. Assign care to hospitalist in a.m. 09/04..
[2018-09-03] MEDS ORDERED: Non-Formulary Drug (Omega 3-Dha-Epa-Fish Oil [Fish Oil] 1,000 MG) PO SCH (09:00)
[2018-09-03] MEDS ORDERED: Potassium Phosphate Inj 30 MMOL in Sodium Chlor 0.9% Inj 250 ML IV.SIG ONE (09:30)
[2018-09-03] MEDS: Insulin NovoLOG Aspart Correctional Sugar Inj SQ SCH ×4 (09:51→17:09)
[2018-09-03] MEDS: Chlorhexidine Gluconate 2% 1 Pack (2 Cloths) TOPICAL SCH (09:51)
[2018-09-03] MEDS: Sod Chloride 0.9% Inj 1,000 ML IV.CONT SCH (09:54)
[2018-09-03] MEDS ORDERED: Gadobutrol PF 10 MMOL/10 ML Vial (for RAD) IV.SIG ONE (10:39)
[2018-09-03 11:35] LABS: Troponin I 1.26 ng/mL (0.02-0.05)
[2018-09-03] MEDS: Heparin - SQ 10,000 UNITS/ML Vial SQ SCH ×2 (11:46→18:51)
[2018-09-03] MEDS: Aspirin 325 MG Tablet PO SCH (11:47)
[2018-09-03] MEDS: Lisinopril 5 MG Tablet PO SCH (11:48)
[2018-09-03] MEDS: Metoprolol Tartrate 50 MG Tablet PO SCH ×2 (11:49→20:50)
[2018-09-03] MEDS: Sertraline 100 MG Tablet PO SCH (11:54)
[2018-09-03] MEDS ORDERED: Influenza (Quadrivalent) Vaccine 0.5 ML Syringe IM ONE (12:30)
--- NOTE | 2018-09-03 13:28 | MR ---
EXAM DATE: 09/03/2018 9:33 AM EDT AGE/SEX: 63 years / Female INDICATIONS: Stenosis. CLINICAL DATA: This is the patient's subsequent encounter. Patient reports that signs and symptoms h ave been present for 2 days and indicates a pain score of 0/10. MEDICAL/SURGICAL HISTORY: Hypertension. Myocardial infarction. Cholecystectomy. Appendectomy. Hysterectomy. Cardiac stents. COMPARISON: CTA of the neck 09/02/2018. TECHNIQUE: 10 ml Gadavist (gadobutrol) contrast infused MRA (single exam dose) of the extracranial circulation was performed using a neurovascular coil. Postprocessing was performed, including rotati ng sub-volume maximum intensity projections of each carotid artery, rotating full-volume maximum inte nsity projections of both carotid arteries, sagittal and coronal sliding thin-slab reformations of ea ch carotid artery, and left oblique sliding thin-slab reformation through the aortic arch to include the origin of the arch branch vessels. FINDINGS: Aortic Arch : There is a three-vessel origin of the great vessels from the aorta. No evidence of o stial narrowing. Right Carotid : Atherosclerotic plaque involving the cephalad portion of the carotid bulb extends in to the ICA origin. Utilizing NASCET criteria this generates a 50-60% stenosis. No ulceration. The mor e cephalad portion of the extracranial ICA, ECA, and CCA are patent. Left Carotid : Atherosclerotic plaque is seen involving the ICA origin. Utilizing NASCET criteria th is generates a 20-30% stenosis without ulceration. The more cephalad portion of the extracranial ICA, ECA, and CCA are patent. Vertebrals : The vertebral arteries have a symmetric diameter. No stenotic lesions are seen. CONCLUSION: 1. 50-60% stenosis of the right ICA with 20-30% stenosis of the left ICA secondary to atheroscleroti c plaque. 2. Patent vertebral arteries. Percent stenosis is calculated using the diameter of the stenotic region over the diameter of the nor mal distal internal carotid artery Electronically signed by: Robinson Pemberton MD 09/03/2018 1:26 NEELAMT
[2018-09-03 17:31] LABS: Hemoglobin A1c 5.5 % (4.3-6.0)
--- NOTE | 2018-09-03 20:32 | US ---
EXAM DATE: 09/03/2018 12:00 AM EDT AGE/SEX: 63 years / Female INDICATIONS: Cerebrovascular accident. CLINICAL DATA: This is the patient's initial encounter. Patient reports that signs and symptoms have been present for 1 day and indicates a pain score of 0/10. MEDICAL/SURGICAL HISTORY: Hypertension. Depression. Coronary stenosis. Myocardial infarction. H yperlipidemia. Hysterectomy. Cholecystectomy. COMPARISON: No prior exams available for comparison. VELOCITY PARAMETERS: ICA/CCA Ratio: Right 0.69 , Left 1.02 ICA: Right 123 cm/sec, Left 119 cm/sec CCA: Right 178 cm/sec, Left 117 cm/sec ECA: Right 170 cm/sec, Left 139 cm/sec Vertebral: Right 67 cm/sec antegrade, Left 43 cm/sec antegrade FINDINGS: Right Carotid: Mild patchy arteriosclerotic plaque is visualized. Tortuosity present, especially CCA . The waveforms are within normal limits. Left Carotid: Mild patchy arteriosclerotic plaque is visualized. The waveforms are within normal cesar its. Other: None. CONCLUSION: 1. Right Internal Carotid Artery: Mild atherosclerotic plaque without significant narrowing. Tortuou s ECA. 2. Left Internal Carotid Artery: Mild atherosclerotic plaque without significant narrowing. Electronically signed by: Vitaly Medeiros MD 09/03/2018 8:31 PM EDT
[2018-09-03] MEDS: Labetalol HCl Inj 100 MG/20 ML Vial IV.PUSH PRN (23:32)
[2018-09-04] MEDS: Heparin - SQ 10,000 UNITS/ML Vial SQ SCH ×3 (01:00→17:33)
[2018-09-04] MEDS: Chlorhexidine Gluconate 2% 1 Pack (2 Cloths) TOPICAL SCH (04:02)
[2018-09-04 04:03] LABS: Baso % (Auto) 0.4 % (0.0-2.0); Eos # (Auto) 0.1 th/mm3 (0.0-0.4); Eos % (Auto) 0.6 % (0.0-4.0); Hematocrit 42.2 % (35.0-46.0); Hemoglobin 14.3 gm/dL (11.6-15.3); Lymph # (Auto) 2.7 th/mm3 (1.0-4.8); Lymph % (Auto) 22.9 % (9.0-44.0); Mean Corpuscular HGB Conc 33.9 % (32.0-36.0); Mean Corpuscular Volume 88.6 fL (80.0-100.0); Mean Platelet Volume 8.2 fL (7.0-11.0); Mono # (Auto) 0.8 th/mm3 (0.0-0.9); Mono % (Auto) 7.2 % (0.0-8.0); Neut % (Auto) 68.9 % (16.0-70.0); Platelet Count 232 th/mm3 (150-450); Red Blood Count 4.76 mil/mm3 (4.00-5.30); White Blood Count 11.6 th/mm3 (4.0-11.0)
[2018-09-04 04:25] LABS: Calcium 8.3 mg/dL (8.5-10.1); Carbon Dioxide 27.8 meq/L (21.0-32.0); Magnesium 2.3 mg/dL (1.5-2.5); Phosphorus 2.3 mg/dL (2.5-4.9); Potassium 3.6 meq/L (3.5-5.1)
--- NOTE | 2018-09-04 08:10 | P.PNNEU ---
Subjective Subjective Comments: no cp, no dyspnea, feels well Active Medications: Active Medications Acetaminophen (Tylenol) 650 mg PO Q6H PRN PRN Reason: Fever >101f Last Admin: 09/04/18 03:00 Dose: 650 mg Al Hydroxide/Mg Hydroxide (Milk Of Raudel Liq) 30 ml PO Q12H PRN PRN Reason: Mild Constipation Albuterol (Albuterol Neb (Prn)) 2.5 mg NEB Q2HR NEB PRN PRN Reason: SHORTNESS OF BREATH/WHEEZING Aspirin (Aspirin) 325 mg PO DAILY [facility] Last Admin: 09/03/18 11:47 Dose: 325 mg Bisacodyl (Dulcolax Supp) 10 mg RECTAL DAILY PRN PRN Reason: SEVERE CONSITIPATION Chlorhexidine Gluconate (Chlorhexidine 2% Cloth) 3 pack TOPICAL DAILY@0400 [facility] Stop: 09/08/18 03:59 Last Admin: 09/04/18 04:02 Dose: Not Given Chlorhexidine Gluconate (Chlorhexidine 2% Cloth) 3 pack TOPICAL DAILY@0400 PRN PRN Reason: Extra cloth needed Stop: 09/08/18 03:59 Clopidogrel Bisulfate (Plavix) 75 mg PO DAILY [facility] Heparin Sodium (Porcine) (Heparin Inj) 5,000 units SQ Q8H [facility] Last Admin: 09/04/18 01:00 Dose: 5,000 units Nicardipine HCl 25 mg/ Sodium (Chloride) 250 mls @ 25 mls/hr IV.CONT TITRATE PRN; Protocol PRN Reason: Per Protocol Acetaminophen (Ofirmev Inj) 650 mg in 65 mls @ 400 mls/hr IV.SIG Q6H PRN PRN Reason: fever, pain 1-10 Magnesium Sulfate 4 gm/ Sodium (Chloride) 100 mls @ 50 mls/hr IV.SIG UNSCH PRN PRN Reason: For Magnesium 0.9 - 1.1 mg/dL Magnesium Sulfate 2 gm/ Sodium (Chloride) 100 mls @ 50 mls/hr IV.SIG UNSCH PRN PRN Reason: For Magnesium 1.2 - 1.6 mg/dL Potassium Chloride (Kcl 40 Meq Premix Inj) 40 meq in 100 mls @ 25 mls/hr IV.SIG Q2H PRN PRN Reason: For Potassium 2.8 - 3.2 mEq/L Potassium Chloride (Kcl 20 Meq Premix Inj) 20 meq in 100 mls @ 50 mls/hr IV.SIG Q2H PRN PRN Reason: For Potassium 3.3 - 3.5 mEq/L Potassium Chloride (Kcl 40 Meq Premix Inj) 40 meq in 100 mls @ 25 mls/hr IV.SIG UNSCH PRN PRN Reason: For Potassium 3.3 - 3.5 mEq/L Potassium Chloride (Kcl 20 Meq Premix Inj) 20 meq in 100 mls @ 50 mls/hr IV.SIG Q2H PRN PRN Reason: For Potassium 2.8 - 3.2 mEq/L Potassium Phosphate 30 mmol/ (Sodium Chloride) 260 mls @ 42 mls/hr IV.SIG UNSCH PRN PRN Reason: SEE LABEL COMMENTS Sodium Phosphate 30 mmol/ (Sodium Chloride) 260 mls @ 42 mls/hr IV.SIG UNSCH PRN PRN Reason: For Phosphorus < 2.5 mg/dL Labetalol HCl (Trandate Inj) 10 mg IV.PUSH Q1H PRN PRN Reason: Acute Pain Last Admin: 09/03/18 23:32 Dose: 10 mg Lactulose (Lactulose Liq) 30 ml PO DAILY PRN PRN Reason: SEVERE CONSITIPATION Lisinopril (Prinivil) 5 mg PO DAILY [facility] Last Admin: 09/03/18 11:48 Dose: 5 mg Magnesium Oxide (Mag-Ox) 800 mg PO UNSCH PRN PRN Reason: For Magnesium 1.2 - 1.6 mg/dL Metoprolol Tartrate (Lopressor) 50 mg PO BID [facility] Last Admin: 09/03/18 20:50 Dose: 50 mg Ondansetron HCl (Zofran Inj) 4 mg IV.PUSH Q6H PRN PRN Reason: NAUSEA Last Admin: 09/03/18 23:22 Dose: 4 mg Pantoprazole Sodium (Protonix) 40 mg PO DAILY [facility] Last Admin: 09/03/18 11:47 Dose: 40 mg Potassium Bicarb/Potassium Chloride (K-Lyte Cl Eff) 50 meq PO UNSCH PRN PRN Reason: For Potassium 3.3 - 3.5 mEq/L Potassium Phosphate (K-Phos Original) 2,000 mg PO Q4H PRN PRN Reason: Phosphorus Less Than 2.5 mg/dL Potassium Phosphate (K-Phos Original) 2,000 mg PO UNSCH PRN PRN Reason: SEE LABEL COMMENTS Pravastatin Sodium (Pravachol) 40 mg PO [facility] Last Admin: 09/03/18 20:50 Dose: 40 mg Prochlorperazine Edisylate (Compazine Inj) 5 mg IV.PUSH Q6H PRN PRN Reason: BREAKTHROUGH NAUSEA Last Admin: 09/04/18 04:01 Dose: 5 mg Sennosides (Senokot) 17.2 mg PO Q12H PRN PRN Reason: Moderate Constipation Sertraline HCl (Zoloft) 100 mg PO DAILY [facility] Last Admin: 09/03/18 11:54 Dose: 100 mg Sodium Chloride (Ns Flush) 2 ml IV.FLUSH BID [facility] Last Admin: 09/03/18 20:51 Dose: 2 ml Sodium Chloride (Ns Flush) 2 ml IV.FLUSH PRN PRN PRN Reason: FLUSH AFTER USING IV ACCESS Sodium Chloride (Ns Flush) 2 ml IV.FLUSH BID [facility] Last Admin: 09/03/18 20:51 Dose: Not Given Sodium Chloride (Ns Flush) 2 ml IV.FLUSH PRN PRN PRN Reason: FLUSH AFTER USING IV ACCESS Allergies/Adverse Reactions: Allergies Allergy/AdvReac Type Severity Reaction Status Date / Time codeine AdvReac Mild Nausea Verified 09/02/18 02:25 vomiting Review of Systems All other systems reviewed negative except as stated in HPI Physical Exam Vital signs: Vital Signs 09/03/18 08:51 09/03/18 12:00 09/03/18 16:00 Temperature 98.7 F 99.0 F Pulse Rate 97 H 96 H Respiratory Rate 17 18 18 Blood Pressure 159/73 H 191/84 H Pulse Oximetry 98 100 09/03/18 17:00 09/03/18 20:00 09/04/18 00:00 Temperature 98.2 F 96.7 F L 98.3 F Pulse Rate 86 94 H 76 Respiratory Rate 16 17 17 Blood Pressure 150/69 H 186/81 H 187/80 H Pulse Oximetry 96 97 94 L 09/04/18 04:00 Temperature 99.5 F Pulse Rate 81 Respiratory Rate 15 Blood Pressure 185/86 H Pulse Oximetry 100 Intake & Output 09/03/18 09/04/18 09/04/18 18:59 06:59 18:59 Intake Total 1909 445 / 445 Balance 1909 445 / 445 Weight 83.3 kg Intake: IV 1260 / 1260 NS Inj 1,000 ML @ 70 mls/hr IV. 1000 / 1000 CONT .[id number] [facility] Rx#:[id number] Potassium Phosphate Inj 30 MMOL 260 / 260 In NS Inj 250 ML @ 43.333 mls/ hr IV.SIG ONCE ONE Rx#:[id number] Oral 650 / 650 445 / 445 Other: # Voids 3 3 Date of Last Bowel Movement 09/03/18 09/03/18 # Bowel Movements 1 Narrative: GENERAL: in NAD, SKIN: Warm and dry. HEAD: Atraumatic. Normocephalic. EYES: Pupils equal and round. No scleral icterus. ENT: No nasal bleeding or discharge. Mucous membranes pink and moist. NECK: Trachea midline. No JVD. CARDIOVASCULAR: Regular rate and rhythm. RESPIRATORY: No accessory muscle use. GASTROINTESTINAL: Abdomen soft, non-tender, nondistended. MUSCULOSKELETAL: Extremities without clubbing, cyanosis, or edema. No obvious deformities. NEUROLOGICAL: Awake and alert. Oriented x3, dysarthric speech, no aphasia, fluent articulate, No facial asymmetry, OU 3-2mm, eomi, VFF, No drift, Motor grossly within normal limits. Left upper extremity weakness4+ 5 with dystaxia proportional to level weakness, no drift, able to raise it off the bed difficulty with opening and closing her hand however, left lower extremity strength 5- out of 5 no drift no neglect. Tone normal in all 4 limbs, Sensory normal in all 4 extremities to pin, msr 1-2+ sym, no clonus, planterflexor, PSYCHIATRIC: Appropriate mood and affect; insight and judgment normal. - Constitutional no acute distress - Routine HEENT Exam Head: Present: normocephalic Eye: Present: EOMI Objective Laboratory Results - last 24 hr 09/03/18 09/03/18 09/03/18 05:15 05:15 05:15 WBC RBC Hgb Hct MCV MCH MCHC RDW Plt Count MPV Neut % (Auto) Lymph % (Auto) [place] % (Auto) Eos % (Auto) Baso % (Auto) Neut # (Auto) Lymph # (Auto) [place] # (Auto) Eos # (Auto) Baso # (Auto) WBC Differential Differential Comment Sodium Potassium Chloride Carbon Dioxide Anion Gap BUN Creatinine Estimated GFR Random Glucose Hemoglobin A1c 5.5 Calcium Phosphorus Magnesium Troponin I 1.26 H* D Amylase 40 Vitamin B12 373 09/04/18 09/04/18 03:28 03:28 WBC 11.6 H RBC 4.76 Hgb 14.3 Hct 42.2 MCV 88.6 MCH 30.0 MCHC 33.9 RDW 13.0 Plt Count 232 MPV 8.2 Neut % (Auto) 68.9 Lymph % (Auto) 22.9 [place] % (Auto) 7.2 Eos % (Auto) 0.6 Baso % (Auto) 0.4 Neut # (Auto) 8.0 H Lymph # (Auto) 2.7 [place] # (Auto) 0.8 Eos # (Auto) 0.1 Baso # (Auto) 0.0 WBC Differential . Differential Comment Auto diff final Sodium 143 Potassium 3.6 Chloride 105 Carbon Dioxide 27.8 Anion Gap 10 BUN 10 Creatinine 0.70 Estimated GFR 85 L Random Glucose 105 Hemoglobin A1c Calcium 8.3 L Phosphorus 2.3 L Magnesium 2.3 Troponin I Amylase Vitamin B12 Review/Management - Diagnosis (1) Acute lacunar stroke Code(s): I63.9 - Cerebral infarction, unspecified Status: Acute Current Visit: Yes (2) Hypertension Code(s): I10 - Essential (primary) hypertension Status: Acute Current Visit : Yes (3) Coronary artery disease Code(s): I25.10 - Atherosclerotic heart disease of [place] coronary artery without angina pectoris Status: Acute Current Visit: Yes (4) Dyslipidemia Code(s): E78.5 - Hyperlipidemia, unspecified Status: Acute Current Visit: Yes - Review/Management Plan: 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 Noncompliance with medications recently CT brain carotids negative mri brain rt hemispheric strokes doing well nihss 2 Recommendations Neuro stable plavix, aspirin cardio eval; pending We will consult Dr. Lanier to look at the right carotid 2 out of 3 studies showing 60 % stenosis patient with multiple right hemispheric strokes which are either from the carotid or cardioembolic therapy ok for 5th floor with tele Appreciate critical care
[2018-09-04] MEDS: Lisinopril 5 MG Tablet PO SCH (09:00)
[2018-09-04] MEDS: Aspirin 325 MG Tablet PO SCH (09:27)
[2018-09-04] MEDS: Sertraline 100 MG Tablet PO SCH (09:27)
[2018-09-04] MEDS: Metoprolol Tartrate 50 MG Tablet PO SCH ×2 (09:28→20:55)
--- NOTE | 2018-09-04 14:48 | P.PNVS ---
Subjective Subjective/Hospital Course: 09/04/2018 Patient with symptoms of right hemispheric stroke and clear weakness of the right arm and hand slowly resolving Patient does have 60% right internal carotid artery stenosis and this corresponds to the symptoms and I believe embolism from this area is responsible for patient's stroke. I will add patient called down the few days and all things equal proceed with right carotid endarterectomy Friday morning Full consult dictated Thanks J Objective Vital Signs / I&O: Vital Signs 09/03/18 16:00 09/03/18 17:00 09/03/18 20:00 Temperature 98.2 F 96.7 F L Pulse Rate 86 94 H Respiratory Rate 18 16 17 Blood Pressure 150/69 H 186/81 H Pulse Oximetry 96 97 09/04/18 00:00 09/04/18 04:00 09/04/18 08:00 Temperature 98.3 F 99.5 F 98.0 F Pulse Rate 76 81 91 H Respiratory Rate 17 15 16 Blood Pressure 187/80 H 185/86 H 150/70 H Pulse Oximetry 94 L 100 100 Intake & Output 09/03/18 09/04/18 09/04/18 18:59 06:59 18:59 Intake Total 1909 445 / 445 Balance 1909 445 / 445 Weight 83.3 kg Intake: IV 1260 / 1260 NS Inj 1,000 ML @ 70 mls/hr IV. 1000 / 1000 CONT .[id number] [facility] Rx#:[id number] Potassium Phosphate Inj 30 MMOL 260 / 260 In NS Inj 250 ML @ 43.333 mls/ hr IV.SIG ONCE ONE Rx#:[id number] Oral 650 / 650 445 / 445 Other: # Voids 3 3 Date of Last Bowel Movement 09/03/18 09/03/18 09/03/18 # Bowel Movements 1 Laboratory Results - last 24 hr 09/03/18 09/04/18 09/04/18 05:15 03:28 03:28 WBC 11.6 H RBC 4.76 Hgb 14.3 Hct 42.2 MCV 88.6 MCH 30.0 MCHC 33.9 RDW 13.0 Plt Count 232 MPV 8.2 Neut % (Auto) 68.9 Lymph % (Auto) 22.9 [place] % (Auto) 7.2 Eos % (Auto) 0.6 Baso % (Auto) 0.4 Neut # (Auto) 8.0 H Lymph # (Auto) 2.7 [place] # (Auto) 0.8 Eos # (Auto) 0.1 Baso # (Auto) 0.0 WBC Differential . Differential Comment Auto diff final Sodium 143 Potassium 3.6 Chloride 105 Carbon Dioxide 27.8 Anion Gap 10 BUN 10 Creatinine 0.70 Estimated GFR 85 L Random Glucose 105 Hemoglobin A1c 5.5 Calcium 8.3 L Phosphorus 2.3 L Magnesium 2.3 Impressions Carotid Doppler Study 09/03/18 00:00 CONCLUSION: 1. Right Internal Carotid Artery: Mild atherosclerotic plaque without significant narrowing. Tortuous ECA. 2. Left Internal Carotid Artery: Mild atherosclerotic plaque without significant narrowing. Neck MRA 09/03/18 00:00 CONCLUSION: 1. 50-60% stenosis of the right ICA with 20-30% stenosis of the left ICA secondary to atherosclerotic plaque. 2. Patent vertebral arteries. Percent stenosis is calculated using the diameter of the stenotic region over the diameter of the normal distal internal carotid artery Head CT 09/03/18 04:06 CONCLUSION: 1. No acute intracranial abnormality. Specifically, no evidence for intercurrent hemorrhage. .
--- NOTE | 2018-09-04 15:27 | MB ---
cc: Jose Matthews MD DATE: 09/04/2018 CONSULTING PHYSICIAN: Jose Matthews MD Vascular Surgery REASON FOR CONSULTATION: Right carotid artery stenosis, right hemispheric stroke, left arm weakness. HISTORY OF PRESENT ILLNESS: This is a 63-year-old female who was admitted through the emergency room with the signs and symptoms of right hemispheric stroke and left-sided weakness. Apparently, the patient initially came for nausea and vomiting and then it was noted that her left arm and face drooped and a stroke alert was called. The patient was worked up, underwent appropriate diagnostic studies and was found to have about 60% stenosis of the right internal carotid artery, hence the consultation. The patient has been stable overnight and now question arises which way to go. PAST MEDICAL HISTORY: Coronary artery disease, post stent placement several years ago, [place] and hyperlipidemia with hypertension. PAST SURGICAL HISTORY: Above noted coronary artery angioplasty and stenting, cholecystectomy and hysterectomy and now the stroke. SOCIAL HISTORY: The patient used to smoke in the past, does not smoke now nor drink. PHYSICAL EXAMINATION: GENERAL: Reveals a pleasant 63-year-old lady in no acute distress. HEENT: Normocephalic. No trauma to the head. Pupils equal, reactive. Extraocular muscles intact. I do not appreciate any weakness or asymmetry of the face. NECK: Bilateral carotid pulses. I do not hear any bruits. CHEST: Bilateral breath sounds. HEART: Regular rhythm. ABDOMEN: Soft with active bowel sounds. EXTREMITIES: The patient has bilateral femoral, popliteal dorsalis pedis and posterior tibial arteries bilateral brachial, ulnar and radial arteries. Upper extremities: The patient is 3/5 on the left and slight dystaxia on the right, she has 5/5. Legs are both normal, 5/5. NEUROLOGIC: The patient is awake, alert, oriented x3. No facial asymmetry. No dysarthria or aphasia. IMPRESSION AND RECOMMENDATIONS: I reviewed laboratory and diagnostic procedures. The patient does have weakness of her left arm consistent with a right hemispheric stroke, although the CT of the head performed on arrival and a repeat one does not show any, so patient is clearly recovering from this. CTA of the neck is consistent with MRA of the neck, which shows about 60% stenosis, right internal carotid artery and some degree of left-sided stenosis, but does not seem to be hemodynamically significant. The current dictum is to consider for surgery any patient with 70 or more percent stenosis of the internal carotid artery if asymptomatic. On the other hand, if patient is symptomatic, then degree of carotid artery may be less, and I have seen patients with 40% and 50% stenosis be symptomatic, which is dependent on the quality of the plaque. If the patient has a bulky plaque which is usually cheesy or undermined and start sloughing off pieces, then patient will have embolic phenomena and resulting strokes. In this particular situation, this patient clearly has bulky plaque in the right internal carotid artery stenosis. Surgery is an appropriate option. I will let the patient cool down for a few days and go ahead with the right carotid endarterectomy Friday. In the meantime, we will put her on Plavix and she can be transferred to the floor. I thank you very much for the referral as always, and I am very grateful for the loyalty of the neurology group. MD [place]ON [place]/ct , 02:43 PM , 02:52 PM
--- NOTE | 2018-09-04 16:05 | P.PNIM ---
Subjective Interval history: Patient lying in bed. Appears comfortable. Says she is feeling well. Reports some slight nausea. No vomiting. Denies any chest pain. Physical Exam Vital signs: Vital Signs 09/03/18 16:00 09/03/18 17:00 09/03/18 20:00 Temperature 98.2 F 96.7 F L Pulse Rate 86 94 H Respiratory Rate 18 16 17 Blood Pressure 150/69 H 186/81 H Pulse Oximetry 96 97 09/04/18 00:00 09/04/18 04:00 09/04/18 08:00 Temperature 98.3 F 99.5 F 98.0 F Pulse Rate 76 81 91 H Respiratory Rate 17 15 16 Blood Pressure 187/80 H 185/86 H 150/70 H Pulse Oximetry 94 L 100 100 09/04/18 12:00 Temperature 98.0 F Pulse Rate 74 Respiratory Rate 16 Blood Pressure 143/75 H Pulse Oximetry 100 Intake & Output 09/03/18 09/04/18 09/04/18 18:59 06:59 18:59 Intake Total 1909 445 / 445 Balance 1909 445 / 445 Weight 83.3 kg Intake: IV 1260 / 1260 NS Inj 1,000 ML @ 70 mls/hr IV. 1000 / 1000 CONT .[id number] [facility] Rx#:[id number] Potassium Phosphate Inj 30 MMOL 260 / 260 In NS Inj 250 ML @ 43.333 mls/ hr IV.SIG ONCE ONE Rx#:[id number] Oral 650 / 650 445 / 445 Other: # Voids 3 3 Date of Last Bowel Movement 09/03/18 09/03/18 09/03/18 # Bowel Movements 1 Narrative: GENERAL: Patient lying in bed. Appears comfortable. Alert and oriented x3. SKIN: Warm and dry. HEAD: Normocephalic. EYES: No scleral icterus. No injection or drainage. NECK: Supple, trachea midline. No JVD. CARDIOVASCULAR: Regular rate and rhythm without murmurs, gallops, or rubs. RESPIRATORY: Breath sounds equal bilaterally. No accessory muscle use. GASTROINTESTINAL: Abdomen soft, non-tender, nondistended. MUSCULOSKELETAL: No cyanosis, or edema. Left upper extremity weakness. 4 out of 5 strength left upper extremity. 5 out of 5 strength in all other extremities. BACK: Nontender without obvious deformity. No CVA tenderness. Results - Labs CBC & Chem 7: 09/04/18 03:28 09/04/18 03:28 Laboratory Results - last 24 hr 09/03/18 09/04/18 09/04/18 05:15 03:28 03:28 WBC 11.6 H RBC 4.76 Hgb 14.3 Hct 42.2 MCV 88.6 MCH 30.0 MCHC 33.9 RDW 13.0 Plt Count 232 MPV 8.2 Neut % (Auto) 68.9 Lymph % (Auto) 22.9 [place] % (Auto) 7.2 Eos % (Auto) 0.6 Baso % (Auto) 0.4 Neut # (Auto) 8.0 H Lymph # (Auto) 2.7 [place] # (Auto) 0.8 Eos # (Auto) 0.1 Baso # (Auto) 0.0 WBC Differential . Differential Comment Auto diff final Sodium 143 Potassium 3.6 Chloride 105 Carbon Dioxide 27.8 Anion Gap 10 BUN 10 Creatinine 0.70 Estimated GFR 85 L Random Glucose 105 Hemoglobin A1c 5.5 Calcium 8.3 L Phosphorus 2.3 L Magnesium 2.3 - Imaging Impressions Carotid Doppler Study 09/03/18 00:00 CONCLUSION: 1. Right Internal Carotid Artery: Mild atherosclerotic plaque without significant narrowing. Tortuous ECA. 2. Left Internal Carotid Artery: Mild atherosclerotic plaque without significant narrowing. Assessment and Plan - Plan Neuro/Psych: Depressive disorder NOS Acute CVA status post alteplase -left facial droop/tongue deviation, left upper extremity weakness Right frontoparietal occipital CT brain revealed no acute intracranial findings CT angiogram revealed no large occlusions. No acute findings. CT angiogram of the neck revealed right carotid bulb stenosis 60%. Left carotid bulb stenosis 45-50%. Vertebrals patent. Received 7.3 mg of alteplase to ED bolus followed by 65.5 mg infusion MRI brain revealed right frontoparietal occipital infarcts Repeat CT brain 24 hours post alteplase infusion reveals no hemorrhage Goal keep systolic blood pressure less than 180, diastolic pressure less than 105. Post alteplase infusion PT/OT/ST evaluate and treat. 2D echocardiogram as below Hemoglobin A1c pending. Lipid panel as below Neurological consultation with Dr. Boy Macedo appreciated Resuming sertraline 100 mg daily. Resume when clinically indicated Ofirmev 650 mg IV every 6 hours as needed fever/pain 1 through 10 = Neurology following. Appreciate assistance. Plan for right-sided carotid endarterectomy. SANKET is still pending. Appreciate cardiology assistance. CV: //Essential hypertension //Hyperlipidemia //Coronary artery disease //Carotid artery disease -60% right carotid bulb, 50% left carotid bulb //Troponin elevation to 1.26 on admission. Initial troponin less than 0.02. EKG revealed normal sinus rhythm 99. Normal MD, QT intervals. Possible incomplete right bundle branch block. No ST changes. Previously on aspirin 325 mg daily. Resume today Home medication for hypertension include lisinopril 5 mg daily metoprolol tartrate 50 mg twice daily. Resume 09/03 Home medications for dyslipidemia include omega-3 fatty acid 1000 mg twice daily. Patient is also on pravastatin 40 mg daily. Noted elevated cholesterol and LDL on lipid panel. Resumed. As needed labetalol 10 mg IV every 1 hours and nicardipine drip titrate to keep systolic blood pressure less than 180/diastolic blood pressure 105 status post alteplase infusion 2D echocardiogram The left ventricular systolic function is normal with an estimated ejection fraction in the range of 60-65%. Normal left ventricular size. No regional wall motion abnormalities are present. Trace mitral valve regurgitation =09/04. SANKET is pending. Appreciate vascular surgery assistance. Plan for right -sided carotid endarterectomy on Friday. Continue to monitor. Neurology following. //Elevated total bilirubin = Order bilirubin components added to today's blood in lab. //Hyperglycemia = Likely secondary to stress. Hemoglobin A1c 5.5. No longer requiring any insulin. Discontinue insulin sliding scale. //Leukocytosis = Likely stress related. //Hypokalemia //Hypophosphatemia = Resolved PT/OT evaluate and treat //Prophylaxis -GI -pantoprazole -DVT -heparin subcu Discussed Condition With: Patient, nurse Discharge Planning: Plan for carotid endarterectomy on Friday We will need cardiology, vascular surgery, neurology clearance. Physical therapy and Occupational Therapy following.
--- NOTE | 2018-09-04 18:17 | MB ---
cc: Roman Davis MD DATE: 09/04/2018 REASON FOR CONSULTATION: Transesophageal echocardiography, abnormal troponin level. HISTORY OF PRESENT ILLNESS: The patient is a 63-year-old white female with a history of coronary artery disease, hypertension, hyperlipidemia who was in her usual state of health up until the day of admission when she presented with acute nausea, chest discomfort. In the emergency department, she developed acute neurological symptoms and was called as a stroke alert. MRI has revealed acute infarcts involving the right frontoparietal and right occipital regions. The patient states on the day of admission, she had about an hour of substernal chest heaviness associated with nausea without shortness of breath or diaphoresis. She has had no further chest discomfort since admission. She also denies paroxysmal nocturnal dyspnea, palpitations, pedal edema. At the time of her stroke, she did feel moderately to severely lightheaded without definite loss of consciousness. PAST MEDICAL HISTORY: 1. Hypertension. 2. Hyperlipidemia. 3. Coronary artery disease, status post myocardial infarctions in 2006, 2007, 2010 in [place], [place]. She had stent placements done in 2006 and 2007. PAST SURGICAL HISTORY: 1. Hysterectomy. 2. Cholecystectomy. CARDIAC MEDICATIONS AT HOME: 1. Aspirin 325 mg daily. 2. Lisinopril 5 mg daily. 3. Metoprolol tartrate 50 mg b.i.d. 4. Pravastatin 40 mg at bedtime. ALLERGIES: CODEINE. FAMILY HISTORY: There is no significant family history of early myocardial infarction. SOCIAL HISTORY: The patient quit smoking 30 years ago. She denies alcohol abuse. REVIEW OF SYSTEMS: As in history of present illness, otherwise negative or noncontributory. She also denies headache, abdominal pain, melena, dyspepsia, bright red blood per rectum, cough, wheezing. PHYSICAL EXAMINATION: VITAL SIGNS: Her blood pressure is 143/75 with a pulse of 74, respirations 16. GENERAL: She is a well-developed, well-nourished white female, in no acute distress. NECK: Jugular venous pressure is normal. Carotid pulses are 2+ bilaterally and without bruits. CHEST: Clear lungs neely. CARDIAC: She has a regular rhythm and rate without S3, S4, or murmur. ABDOMEN: She has a soft, nontender abdomen. Bowel sounds are present. There is no definite hepatosplenomegaly. EXTREMITIES: No clubbing, cyanosis, or edema. Peripheral pulses are normal throughout. LABORATORY DATA: Includes WBC 11.6, hemoglobin 14.3, platelets 232. Potassium 3.6, BUN 10, creatinine 0.70. Troponin 1.26. CK 53. Total cholesterol 207, LDL 126, HDL 45, triglycerides 177. EKG from 09/02/2018 shows sinus rhythm, left axis deviation. Chest x-ray shows no acute disease. IMPRESSION: Abnormal troponin level, acute cerebrovascular accident in this 63-year-old white female with a history of hypertension, hyperlipidemia, coronary artery disease. I have been asked to see the patient for transesophageal echocardiography as well as further evaluation of her abnormal troponin level. At this point, I would agree with the need for transesophageal echocardiography to rule out a cardiac source of embolism. Overall, I doubt she has a cardiac source for her CVA. There is no history of atrial fibrillation. Echocardiogram a couple days ago was unremarkable. She does apparently have what is felt to be significant right internal carotid artery disease by workup here in the hospital and is being considered for carotid endarterectomy this Friday. With respect to the abnormal troponin level, she did have complaints of chest discomfort on presentation. Initial EKG showed no diagnostic ST segment changes. There is no definite evidence for congestive heart failure. As noted above, echocardiogram is unremarkable. RECOMMENDATIONS: 1. Check a Lexiscan nuclear stress test in the morning to assess the extent of any residual myocardial ischemia. 2. Continue her usual home cardiac medications, including beta adia and GIFTY inhibitor therapy. 3. Continue daily aspirin. 4. Given her very suboptimal lipid profile and history of carotid/coronary disease, recommend high-dose statin therapy. 5. Transesophageal echocardiography Friday morning (11:45 a.m.). MD RIK Hough/jung , 05:25 PM , 05:35 PM LEO
[2018-09-05] MEDS: Heparin - SQ 10,000 UNITS/ML Vial SQ SCH ×3 (02:40→17:03)
[2018-09-05] MEDS: Acetaminophen Inj 650 MG/65 ML VIAL IV.SIG PRN (03:35)
[2018-09-05] MEDS: Chlorhexidine Gluconate 2% 1 Pack (2 Cloths) TOPICAL SCH (06:10)
[2018-09-05] MEDS: Aspirin 325 MG Tablet PO SCH (09:15)
[2018-09-05] MEDS: Lisinopril 5 MG Tablet PO SCH (09:15)
[2018-09-05] MEDS: Sertraline 100 MG Tablet PO SCH (09:16)
[2018-09-05] MEDS: Metoprolol Tartrate 50 MG Tablet PO SCH ×2 (09:17→20:53)
--- NOTE | 2018-09-05 09:45 | P.PNCA ---
Subjective Interval history: Brief substernal CP this morning. No dyspnea, dizziness, palpitations. Otherwise slept well. Medications and Allergies Active Medications: Active Medications Acetaminophen (Tylenol) 650 mg PO Q6H PRN PRN Reason: Fever >101f Last Admin: 09/04/18 03:00 Dose: 650 mg Al Hydroxide/Mg Hydroxide (Milk Of Raudel De La [place]) 30 ml PO Q12H PRN PRN Reason: Mild Constipation Albuterol (Albuterol Neb (Prn)) 2.5 mg NEB Q2HR NEB PRN PRN Reason: SHORTNESS OF BREATH/WHEEZING Aspirin (Aspirin) 325 mg PO DAILY [facility] Last Admin: 09/05/18 09:15 Dose: 325 mg Atorvastatin Calcium (Lipitor) 80 mg PO HS [facility] Last Admin: 09/04/18 20:56 Dose: 80 mg Bisacodyl (Dulcolax Supp) 10 mg RECTAL DAILY PRN PRN Reason: SEVERE CONSITIPATION Chlorhexidine Gluconate (Chlorhexidine 2% Cloth) 3 pack TOPICAL DAILY@0400 [facility] Stop: 09/08/18 03:59 Last Admin: 09/05/18 06:10 Dose: Not Given Chlorhexidine Gluconate (Chlorhexidine 2% Cloth) 3 pack TOPICAL DAILY@0400 PRN PRN Reason: Extra cloth needed Stop: 09/08/18 03:59 Clopidogrel Bisulfate (Plavix) 75 mg PO DAILY [facility] Last Admin: 09/05/18 09:15 Dose: 75 mg Heparin Sodium (Porcine) (Heparin Inj) 5,000 units SQ Q8H [facility] Last Admin: 09/05/18 09:17 Dose: 5,000 units Nicardipine HCl 25 mg/ Sodium (Chloride) 250 mls @ 25 mls/hr IV.CONT TITRATE PRN; Protocol PRN Reason: Per Protocol Acetaminophen (Ofirmev Inj) 650 mg in 65 mls @ 400 mls/hr IV.SIG Q6H PRN PRN Reason: fever, pain 1-10 Last Infusion: 09/05/18 03:45 Dose: Infused Magnesium Sulfate 4 gm/ Sodium (Chloride) 100 mls @ 50 mls/hr IV.SIG UNSCH PRN PRN Reason: For Magnesium 0.9 - 1.1 mg/dL Magnesium Sulfate 2 gm/ Sodium (Chloride) 100 mls @ 50 mls/hr IV.SIG UNSCH PRN PRN Reason: For Magnesium 1.2 - 1.6 mg/dL Potassium Chloride (Kcl 40 Meq Premix Inj) 40 meq in 100 mls @ 25 mls/hr IV.SIG Q2H PRN PRN Reason: For Potassium 2.8 - 3.2 mEq/L Potassium Chloride (Kcl 20 Meq Premix Inj) 20 meq in 100 mls @ 50 mls/hr IV.SIG Q2H PRN PRN Reason: For Potassium 3.3 - 3.5 mEq/L Potassium Chloride (Kcl 40 Meq Premix Inj) 40 meq in 100 mls @ 25 mls/hr IV.SIG UNSCH PRN PRN Reason: For Potassium 3.3 - 3.5 mEq/L Potassium Chloride (Kcl 20 Meq Premix Inj) 20 meq in 100 mls @ 50 mls/hr IV.SIG Q2H PRN PRN Reason: For Potassium 2.8 - 3.2 mEq/L Potassium Phosphate 30 mmol/ (Sodium Chloride) 260 mls @ 42 mls/hr IV.SIG UNSCH PRN PRN Reason: SEE LABEL COMMENTS Sodium Phosphate 30 mmol/ (Sodium Chloride) 260 mls @ 42 mls/hr IV.SIG UNSCH PRN PRN Reason: For Phosphorus < 2.5 mg/dL Labetalol HCl (Trandate Inj) 10 mg IV.PUSH Q1H PRN PRN Reason: Acute Pain Last Admin: 09/03/18 23:32 Dose: 10 mg Lactulose (Lactulose Liq) 30 ml PO DAILY PRN PRN Reason: SEVERE CONSITIPATION Lisinopril (Prinivil) 5 mg PO DAILY [facility] Last Admin: 09/05/18 09:15 Dose: 5 mg Magnesium Oxide (Mag-Ox) 800 mg PO UNSCH PRN PRN Reason: For Magnesium 1.2 - 1.6 mg/dL Metoprolol Tartrate (Lopressor) 50 mg PO BID [facility] Last Admin: 09/05/18 09:17 Dose: 50 mg Ondansetron HCl (Zofran Inj) 4 mg IV.PUSH Q6H PRN PRN Reason: NAUSEA Last Admin: 09/05/18 09:28 Dose: 4 mg Pantoprazole Sodium (Protonix) 40 mg PO DAILY [facility] Last Admin: 09/05/18 09:17 Dose: 40 mg Potassium Bicarb/Potassium Chloride (K-Lyte Cl Eff) 50 meq PO UNSCH PRN PRN Reason: For Potassium 3.3 - 3.5 mEq/L Potassium Phosphate (K-Phos Original) 2,000 mg PO Q4H PRN PRN Reason: Phosphorus Less Than 2.5 mg/dL Potassium Phosphate (K-Phos Original) 2,000 mg PO UNSCH PRN PRN Reason: SEE LABEL COMMENTS Prochlorperazine Edisylate (Compazine Inj) 5 mg IV.PUSH Q6H PRN PRN Reason: BREAKTHROUGH NAUSEA Last Admin: 09/04/18 04:01 Dose: 5 mg Sennosides (Senokot) 17.2 mg PO Q12H PRN PRN Reason: Moderate Constipation Sertraline HCl (Zoloft) 100 mg PO DAILY [facility] Last Admin: 09/05/18 09:16 Dose: 100 mg Sodium Chloride (Ns Flush) 2 ml IV.FLUSH BID [facility] Last Admin: 09/04/18 20:56 Dose: 2 ml Sodium Chloride (Ns Flush) 2 ml IV.FLUSH PRN PRN PRN Reason: FLUSH AFTER USING IV ACCESS Sodium Chloride (Ns Flush) 2 ml IV.FLUSH BID [facility] Last Admin: 09/04/18 20:56 Dose: Not Given Sodium Chloride (Ns Flush) 2 ml IV.FLUSH PRN PRN PRN Reason: FLUSH AFTER USING IV ACCESS Allergies Allergy/AdvReac Type Severity Reaction Status Date / Time codeine AdvReac Mild Nausea Verified 09/02/18 02:25 vomiting Home Medications Medication Instructions Recorded Confirmed Type aspirin 325 mg PO DAILY 09/02/18 09/02/18 History lisinopril 5 mg PO DAILY 09/02/18 09/02/18 History metoprolol tartrate 50 mg PO BID 09/02/18 09/02/18 History nitroglycerin [Nitrostat] 0.4 mg SUBLINGUAL Q5-15M PRN 09/02/18 09/02/18 History omega 9-owt-jso-fish oil [Fish Oil] 1,000 mg PO BID 09/02/18 09/02/18 History pravastatin 40 mg PO DAILY 09/02/18 09/02/18 History sertraline [Zoloft] 100 mg PO DAILY 09/02/18 09/02/18 History Physical Exam Vital signs: Vital Signs 09/04/18 12:00 09/04/18 16:00 09/04/18 20:00 Temperature 98.0 F 98 F 98.1 F Pulse Rate 74 81 76 Respiratory Rate 16 18 Blood Pressure 143/75 H 160/81 H 168/83 H Pulse Oximetry 100 93 L 96 09/05/18 00:00 09/05/18 04:00 09/05/18 08:00 Temperature 98.4 F 97.9 F 98.2 F Pulse Rate 73 74 89 Respiratory Rate 18 Blood Pressure 158/76 H 177/84 H 155/74 H Pulse Oximetry 96 96 96 Intake & Output 09/04/18 09/05/18 09/05/18 18:59 06:59 18:59 Intake Total 65 / 65 Balance 65 / 65 Weight 81.5 kg Intake: IV 65 65 Ofirmev Inj 650 mg In 65 ml @ 65 / 65 400 mls/hr IV.SIG Q6H PRN Rx#: [id number] Other: # Voids 7 Date of Last Bowel Movement 09/03/18 09/05/18 # Bowel Movements 3 - Constitutional no acute distress - Routine Neck Exam Absent: JVD - Routine Respiratory Exam Present: CTA bilaterally - Routine Cardiovascular Exam Present: RRR, S1, S2. Absent: murmur, gallop - Routine Abdominal Exam Present: soft, normoactive bowel sounds. Absent: tenderness, organomegaly - Routine Extremities Exam Absent: cyanosis, clubbing, edema Results 09/04/18 03:28 09/04/18 03:28 Cardiac Enzymes 09/03/18 Range/Units 05:15 Troponin I 1.26 H* D (0.02-0.05) ng/mL CBC 09/04/18 Range/Units 03:28 WBC 11.6 H (4.0-11.0) th/mm3 RBC 4.76 (4.00-5.30) mil/mm3 Hgb 14.3 (11.6-15.3) gm/dL Hct 42.2 (35.0-46.0) % Plt Count 232 (150-450) th/mm3 Neut # (Auto) 8.0 H (1.8-7.7) th/mm3 Lymph # (Auto) 2.7 (1.0-4.8) th/mm3 [place] # (Auto) 0.8 (0.0-0.9) th/mm3 Eos # (Auto) 0.1 (0.0-0.4) th/mm3 Baso # (Auto) 0.0 (0.0-0.2) th/mm3 Comprehensive Metabolic Panel 09/04/18 09/04/18 Range/Units 03:28 03:28 Sodium 143 (136-145) meq/L Potassium 3.6 (3.5-5.1) meq/L Chloride 105 (98-107) meq/L Carbon Dioxide 27.8 (21.0-32.0) meq/L BUN 10 (7-18) mg/dL Creatinine 0.70 (0.50-1.00) mg/dL Calcium 8.3 L (8.5-10.1) mg/dL Direct Bilirubin 0.3 H (0.0-0.2) mg/dL Indirect Bilirubin 1.3 H (0.0-0.8) mg/dL Intake and Output 09/04/18 09/05/18 09/05/18 22:59 06:59 14:59 Intake Total 65 / 65 Balance 65 / 65 Intake: IV 65 / 65 Ofirmev Inj 650 mg In 65 ml @ 65 / 65 400 mls/hr IV.SIG Q6H PRN Rx#: [id number] Other: # Voids 7 Date of Last Bowel Movement 09/03/18 09/05/18 # Bowel Movements 3 Weight 81.5 kg - Imaging and Cardiology Imaging: Impressions Carotid Doppler Study 09/03/18 00:00 CONCLUSION: 1. Right Internal Carotid Artery: Mild atherosclerotic plaque without significant narrowing. Tortuous ECA. 2. Left Internal Carotid Artery: Mild atherosclerotic plaque without significant narrowing. Neck MRA 09/03/18 00:00 CONCLUSION: 1. 50-60% stenosis of the right ICA with 20-30% stenosis of the left ICA secondary to atherosclerotic plaque. 2. Patent vertebral arteries. Percent stenosis is calculated using the diameter of the stenotic region over the diameter of the normal distal internal carotid artery Assessment and Plan - Assessment (1) Coronary artery disease Code(s): I25.10 - Atherosclerotic heart disease of [place] coronary artery without angina pectoris Status: Chronic Plan: Recurrent chest discomfort early this morning, brief, dissimilar from previous angina according to patient. Await Lexiscan nuclear stress test; depending on results, to consider cardiac cath. Continue beta adia, aspirin, GIFTY-I. (2) Acute cerebrovascular accident (CVA) Code(s): I63.9 - Cerebral infarction, unspecified Status: Acute Plan: Stable overnight. For SANKET probably Friday am to rule out cardiac source of embolism. (3) Dyslipidemia Code(s): E78.5 - Hyperlipidemia, unspecified Status: Chronic Plan: Very suboptimal lipid profile in light of her CVA and history of CAD. Recommend high dose atorvastatin, recheck lipid profile in 8 weeks. (4) Hypertension Code(s): I10 - Essential (primary) hypertension Status: Chronic - Plan Mostly hypertensive. Consider increasing Lisinopril dosing. Code Status: full code Discussed Condition With: patient (1) Coronary artery disease Qualifiers: Coronary Disease-Associated Artery/Lesion type: [place] artery [place] vs. transplanted heart: [place] heart Associated angina: with unstable angina Qualified Code(s): I25.110 - Atherosclerotic heart disease of [place] coronary artery with unstable angina pectoris (4) Hypertension Qualifiers: Hypertension type: essential hypertension Qualified Code(s): I10 - Essential (primary) hypertension
--- NOTE | 2018-09-05 11:48 | P.PNVS ---
Subjective Subjective/Hospital Course: 09/04/2018 Patient with symptoms of right hemispheric stroke and clear weakness of the right arm and hand slowly resolving Patient does have 60% right internal carotid artery stenosis and this corresponds to the symptoms and I believe embolism from this area is responsible for patient's stroke. I will add patient called down the few days and all things equal proceed with right carotid endarterectomy Friday morning Full consult dictated Thanks J 09/05/2018 I reviewed laboratory and diagnostic procedures. The patient does have weakness of her left arm consistent with a right hemispheric stroke, although the CT of the head performed on arrival and a repeat one does not show any, so patient is clearly recovering from this. CTA of the neck is consistent with MRA of the neck, which shows about 60% stenosis, right internal carotid artery and some degree of left-sided stenosis, but does not seem to be hemodynamically significant. The current dictum is to consider for surgery any patient with 70 or more percent stenosis of the internal carotid artery if asymptomatic. On the other hand, if patient is symptomatic, then degree of carotid artery may be less, and I have seen patients with 40% and 50% stenosis be symptomatic, which is dependent on the quality of the plaque. If the patient has a bulky plaque which is usually cheesy or undermined and start sloughing off pieces, then patient will have embolic phenomena and resulting strokes. In this particular situation, this patient clearly has bulky plaque in the right internal carotid artery stenosis. Surgery is an appropriate option. I will let the patient cool down for a few days and go ahead with the right carotid endarterectomy Friday. In the meantime patient is be being worked up by cardiology and have spoken to Dr. Davis. Depending on the nuclear scan and suspicion of ischemic changes patient may need further cardiac workup and possible intervention prior to carotid surgery but for the time being she is tentatively on schedule for Friday and this then may change Objective Vital Signs / I&O: Vital Signs 09/04/18 12:00 09/04/18 16:00 09/04/18 20:00 Temperature 98.0 F 98 F 98.1 F Pulse Rate 74 81 76 Respiratory Rate 16 18 18 Blood Pressure 143/75 H 160/81 H 168/83 H Pulse Oximetry 100 93 L 96 09/05/18 00:00 09/05/18 04:00 09/05/18 08:00 Temperature 98.4 F 97.9 F 98.2 F Pulse Rate 73 74 89 Respiratory Rate 19 18 Blood Pressure 158/76 H 177/84 H 155/74 H Pulse Oximetry 96 96 96 Intake & Output 09/04/18 09/05/18 09/05/18 18:59 06:59 18:59 Intake Total 65 / 65 Balance 65 / 65 Weight 81.5 kg Intake: IV 65 / 65 Ofirmev Inj 650 mg In 65 ml @ 65 / 65 400 mls/hr IV.SIG Q6H PRN Rx#: [id number] Other: # Voids 7 Date of Last Bowel Movement 09/03/18 09/05/18 # Bowel Movements 3 Laboratory Results - last 24 hr 09/04/18 03:28 Total Bilirubin 1.6 H Direct Bilirubin 0.3 H Indirect Bilirubin 1.3 H Impressions Carotid Doppler Study 09/03/18 00:00 CONCLUSION: 1. Right Internal Carotid Artery: Mild atherosclerotic plaque without significant narrowing. Tortuous ECA. 2. Left Internal Carotid Artery: Mild atherosclerotic plaque without significant narrowing. Neck MRA 09/03/18 00:00 CONCLUSION: 1. 50-60% stenosis of the right ICA with 20-30% stenosis of the left ICA secondary to atherosclerotic plaque. 2. Patent vertebral arteries. Percent stenosis is calculated using the diameter of the stenotic region over the diameter of the normal distal internal carotid artery
--- NOTE | 2018-09-05 12:52 | P.PN ---
Subjective Interval history: aroudn 3 am - had brief episode of chest pain- no shrotness of breath, nausea or vomiting LUE weakness- stable no fever Physical Exam Vital signs: Vital Signs 09/04/18 16:00 09/04/18 20:00 09/05/18 00:00 Temperature 98 F 98.1 F 98.4 F Pulse Rate 81 76 73 Respiratory Rate 18 18 19 Blood Pressure 160/81 H 168/83 H 158/76 H Pulse Oximetry 93 L 96 96 09/05/18 04:00 09/05/18 08:00 Temperature 97.9 F 98.2 F Pulse Rate 74 89 Respiratory Rate 18 18 Blood Pressure 177/84 H 155/74 H Pulse Oximetry 96 96 Intake & Output 09/04/18 09/05/18 09/05/18 18:59 06:59 18:59 Intake Total 65 / 65 Balance 65 / 65 Weight 81.5 kg Intake: IV 65 / 65 Ofirmev Inj 650 mg In 65 ml @ 65 / 65 400 mls/hr IV.SIG Q6H PRN Rx#: [id number] Other: # Voids 7 Date of Last Bowel Movement 09/03/18 09/05/18 # Bowel Movements 3 Narrative: Patient lying in bed. Appears comfortable. Alert and oriented x3. speech clear SKIN: Warm and dry. HEAD: Normocephalic. EYES: No scleral icterus. No injection or drainage. NECK: Supple, trachea midline. No JVD. CARDIOVASCULAR: Regular rate and rhythm without murmurs, gallops, or rubs. RESPIRATORY: Breath sounds equal bilaterally. No accessory muscle use. GASTROINTESTINAL: Abdomen soft, non-tender, nondistended. MUSCULOSKELETAL: No cyanosis, or edema. mild Left upper extremity weakness 4+ out of 5 strength left upper extremity. 5 out of 5 strength in all other extremities. gait steady grossly no sensory deficits BACK: Nontender without obvious deformity. No CVA tenderness. Results - Labs CBC & Chem 7: 09/04/18 03:28 09/04/18 03:28 Laboratory Results - last 24 hr 09/04/18 03:28 Total Bilirubin 1.6 H Direct Bilirubin 0.3 H Indirect Bilirubin 1.3 H Assessment and Plan - Plan 63 years old right handed female Neuro/Psych: Depressive disorder NOS Acute CVA status post alteplase -left facial droop/tongue deviation, left upper extremity weakness Right frontoparietal occipital CT brain revealed no acute intracranial findings CT angiogram revealed no large occlusions. No acute findings. CT angiogram of the neck revealed right carotid bulb stenosis 60%. Left carotid bulb stenosis 45-50%. Vertebrals patent. Received 7.3 mg of alteplase to ED bolus followed by 65.5 mg infusion MRI brain revealed right frontoparietal occipital infarcts Repeat CT brain 24 hours post alteplase infusion reveals no hemorrhage Goal keep systolic blood pressure less than 180, diastolic pressure less than 105. Post alteplase infusion PT/OT/ST evaluate and treat. 2D echocardiogram as below Hemoglobin A1c pending. Lipid panel as below Neurological consultation with Dr. Boy Macedo appreciated Resuming sertraline 100 mg daily. Resume when clinically indicated = Neurology following. - Plan for right-sided carotid endarterectomy. SANKET is still pending. Appreciate cardiology assistance. CV: //Essential hypertension //Hyperlipidemia //Coronary artery disease //Carotid artery disease -60% right carotid bulb, 50% left carotid bulb //Troponin elevation to 1.26 on admission. Brief epside of 09/05 - for Myocardial perfusion study today- ordered by Dr. Ryan guerra on BB/ASA/GIFTY - Atorvastatin 80 mg hs -2D echocardiogram The left ventricular systolic function is normal with an estimated ejection fraction in the range of 60-65%. Normal left ventricular size. No regional wall motion abnormalities are present. Trace mitral valve regurgitation - SANKET is pending. Appreciate vascular surgery assistance. - Plan for right-sided carotid endarterectomy on Friday. Continue to monitor. Neurology following. //Elevated total bilirubin = ff //Hyperglycemia = Likely secondary to stress. Hemoglobin A1c 5.5. No longer requiring any insulin. Discontinue insulin sliding scale. - patient states non diabetic- glucose readings good //Leukocytosis = Likely stress related. //Hypokalemia //Hypophosphatemia = Resolved PT/OT evaluate and treat //Prophylaxis -GI -pantoprazole -DVT -heparin subcu Discussed Condition With: Patient, nurse Discharge Planning: Plan for carotid endarterectomy on Friday We will need cardiology, vascular surgery, neurology clearance. Physical therapy and Occupational Therapy following.
--- NOTE | 2018-09-05 13:16 | ECG ---
Date Performed: 09/04/2018 Time Performed: 17:28:00 PTAGE: 63 years EKG: Sinus rhythm LEFT ANTERIOR FASCICULAR BLOCK NONSPECIFIC T-WAVE ABNORMALITY ABNORMAL ECG PREVIOUS TRACING : 09/02/2018 01.42 DOCTOR: Mary Cornejo Interpretating Date/Time 09/05/2018 13:11:07
[2018-09-06] MEDS: Heparin - SQ 10,000 UNITS/ML Vial SQ SCH ×3 (02:55→17:11)
[2018-09-06] MEDS: Chlorhexidine Gluconate 2% 1 Pack (2 Cloths) TOPICAL SCH (05:04)
[2018-09-06] MEDS: Acetaminophen Inj 650 MG/65 ML VIAL IV.SIG PRN (05:06)
--- NOTE | 2018-09-06 09:31 | P.PN ---
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 her sleeping pattern in reversed retired x 2 years up all night Physical Exam Vital signs: Vital Signs 09/05/18 12:00 09/05/18 16:00 09/05/18 16:47 Temperature 98 F 98 F Pulse Rate 68 78 70 Respiratory Rate 18 18 Blood Pressure 145/71 H 145/80 H Pulse Oximetry 95 97 09/05/18 19:59 09/05/18 20:00 09/05/18 22:00 Temperature 97.8 F Pulse Rate 88 76 Respiratory Rate 18 Blood Pressure 178/82 H 180/90 H Pulse Oximetry 94 L 09/06/18 00:00 09/06/18 04:00 09/06/18 04:04 Temperature 98.4 F 97.9 F Pulse Rate 70 77 78 Respiratory Rate 18 18 Blood Pressure 139/85 157/69 H Pulse Oximetry 96 96 09/06/18 07:54 Temperature 98 F Pulse Rate 76 Respiratory Rate 18 Blood Pressure 114/63 Pulse Oximetry 96 Intake & Output 09/05/18 09/06/18 09/06/18 18:59 06:59 18:59 Intake Total 600 / 600 65 / 65 Output Total 400 / 400 Balance 200 / 200 65 / 65 Weight 81.5 kg Intake: IV 65 / 65 Ofirmev Inj 650 mg In 65 ml @ 65 / 65 400 mls/hr IV.SIG Q6H PRN Rx#: [id number] Oral 600 / 600 Output: Urine 400 / 400 Other: Date of Last Bowel Movement 09/05/18 09/05/18 Narrative: Patient lying in bed. Appears comfortable. Alert and oriented x3. speech clear SKIN: Warm and dry. HEAD: Normocephalic. no temporal tenderness EYES: No scleral icterus. No injection or drainage. , pupils equal NECK: Supple, trachea midline. No JVD. CARDIOVASCULAR: Regular rate and rhythm without murmurs, gallops, or rubs. RESPIRATORY: Breath sounds equal bilaterally. No accessory muscle use. GASTROINTESTINAL: Abdomen soft, non-tender, nondistended. MUSCULOSKELETAL: No cyanosis, or edema. mild Left upper extremity weakness 4+ out of 5 strength left upper extremity. 5 out of 5 strength in all other extremities. gait steady grossly no sensory deficits BACK: Nontender without obvious deformity. No CVA tenderness. Results - Labs CBC & Chem 7: 09/04/18 03:28 09/04/18 03:28 Assessment and Plan - Plan 63 years old right handed female Neuro/Psych: Depressive disorder NOS Acute CVA status post alteplase -left facial droop/tongue deviation, left upper extremity weakness Right frontoparietal occipital CT brain revealed no acute intracranial findings CT angiogram revealed no large occlusions. No acute findings. CT angiogram of the neck revealed right carotid bulb stenosis 60%. Left carotid bulb stenosis 45-50%. Vertebrals patent. Received 7.3 mg of alteplase to ED bolus followed by 65.5 mg infusion MRI brain revealed right frontoparietal occipital infarcts Repeat CT brain 24 hours post alteplase infusion reveals no hemorrhage Goal keep systolic blood pressure less than 180, diastolic pressure less than 105. Post alteplase infusion PT/OT/ST evaluate and treat. 2D echocardiogram as below Hemoglobin A1c pending. Lipid panel as below Neurological consultation with Dr. Boy Macedo appreciated Resuming sertraline 100 mg daily. Resume when clinically indicated = Neurology following. - Plan for right-sided carotid endarterectomy. SANKET is still pending. Appreciate cardiology assistance. CV: //Essential hypertension //Hyperlipidemia //Coronary artery disease //Carotid artery disease -60% right carotid bulb, 50% left carotid bulb //Troponin elevation to 1.26 on admission. Brief epside of JESUS ALBERTO 09/05 - for Myocardial perfusion study today- at 1 pm - continue on BB/ASA/GIFTY - Atorvastatin 80 mg hs -2D echocardiogram The left ventricular systolic function is normal with an estimated ejection fraction in the range of 60-65%. Normal left ventricular size. No regional wall motion abnormalities are present. Trace mitral valve regurgitation - SANKET is pending. Appreciate vascular surgery assistance. - Plan for right-sided carotid endarterectomy //Elevated total bilirubin = ff trend //Hyperglycemia = Likely secondary to stress. Hemoglobin A1c 5.5. No longer requiring any insulin. Discontinue insulin sliding scale. - patient states non diabetic- glucose readings good //Leukocytosis = Likely stress related. //Hypokalemia //Hypophosphatemia = Resolved PT/OT evaluate and treat //Prophylaxis -GI -pantoprazole -DVT -heparin subcu Discussed Condition With: Patient, nurse Discharge Planning: Plan for carotid endarterectomy on Friday We will need cardiology, vascular surgery, neurology clearance. Physical therapy and Occupational Therapy following.
--- NOTE | 2018-09-06 10:40 | P.PNVS ---
Subjective Subjective/Hospital Course: 09/04/2018 Patient with symptoms of right hemispheric stroke and clear weakness of the right arm and hand slowly resolving Patient does have 60% right internal carotid artery stenosis and this corresponds to the symptoms and I believe embolism from this area is responsible for patient's stroke. I will add patient called down the few days and all things equal proceed with right carotid endarterectomy Friday morning Full consult dictated Thanks J 09/05/2018 I reviewed laboratory and diagnostic procedures. The patient does have weakness of her left arm consistent with a right hemispheric stroke, although the CT of the head performed on arrival and a repeat one does not show any, so patient is clearly recovering from this. CTA of the neck is consistent with MRA of the neck, which shows about 60% stenosis, right internal carotid artery and some degree of left-sided stenosis, but does not seem to be hemodynamically significant. The current dictum is to consider for surgery any patient with 70 or more percent stenosis of the internal carotid artery if asymptomatic. On the other hand, if patient is symptomatic, then degree of carotid artery may be less, and I have seen patients with 40% and 50% stenosis be symptomatic, which is dependent on the quality of the plaque. If the patient has a bulky plaque which is usually cheesy or undermined and start sloughing off pieces, then patient will have embolic phenomena and resulting strokes. In this particular situation, this patient clearly has bulky plaque in the right internal carotid artery stenosis. Surgery is an appropriate option. I will let the patient cool down for a few days and go ahead with the right carotid endarterectomy Friday. In the meantime patient is be being worked up by cardiology and have spoken to Dr. Davis. Depending on the nuclear scan and suspicion of ischemic changes patient may need further cardiac workup and possible intervention prior to carotid surgery but for the time being she is tentatively on schedule for Friday and this then may change 09/06/2018 Patient is neurologically unchanged she is awake alert and oriented slight weakness in the left hand and left arm Discussed with Dr. Davis and pending the outcome of stress test patient is tentatively scheduled for right carotid endarterectomy tomorrow She is to remain on Plavix throughout We will reassess tomorrow Objective Vital Signs / I&O: Vital Signs 09/05/18 12:00 09/05/18 16:00 09/05/18 16:47 Temperature 98 F 98 F Pulse Rate 68 78 70 Respiratory Rate 18 18 Blood Pressure 145/71 H 145/80 H Pulse Oximetry 95 97 09/05/18 19:59 09/05/18 20:00 09/05/18 22:00 Temperature 97.8 F Pulse Rate 88 76 Respiratory Rate 18 Blood Pressure 178/82 H 180/90 H Pulse Oximetry 94 L 09/06/18 00:00 09/06/18 04:00 09/06/18 04:04 Temperature 98.4 F 97.9 F Pulse Rate 70 77 78 Respiratory Rate 18 18 Blood Pressure 139/85 157/69 H Pulse Oximetry 96 96 09/06/18 07:54 Temperature 98 F Pulse Rate 76 Respiratory Rate 18 Blood Pressure 114/63 Pulse Oximetry 96 Intake & Output 09/05/18 09/06/18 09/06/18 18:59 06:59 18:59 Intake Total 600 / 600 65 / 65 Output Total 400 / 400 Balance 200 / 200 65 / 65 Weight 81.5 kg Intake: IV 65 / 65 Ofirmev Inj 650 mg In 65 ml @ 65 / 65 400 mls/hr IV.SIG Q6H PRN Rx#: [id number] Oral 600 / 600 Output: Urine 400 / 400 Other: Date of Last Bowel Movement 09/05/18 09/05/18
[2018-09-06] MEDS ORDERED: Regadenoson Inj 0.4 MG/5 ML Syringe IV.PUSH ONE (10:58)
--- NOTE | 2018-09-06 12:19 | P.PNCA ---
Subjective Interval history: Denies CP, dyspnea, dizziness, palpitations. Medications and Allergies Active Medications: Active Medications Acetaminophen (Tylenol) 650 mg PO Q6H PRN PRN Reason: Fever >101f Last Admin: 09/04/18 03:00 Dose: 650 mg Al Hydroxide/Mg Hydroxide (Milk Of Magnesia Liq) 30 ml PO Q12H PRN PRN Reason: Mild Constipation Albuterol (Albuterol Neb (Prn)) 2.5 mg NEB Q2HR NEB PRN PRN Reason: SHORTNESS OF BREATH/WHEEZING Aspirin (Aspirin) 325 mg PO DAILY [facility] Last Admin: 09/05/18 09:15 Dose: 325 mg Atorvastatin Calcium (Lipitor) 80 mg PO HS [facility] Last Admin: 09/05/18 20:53 Dose: 80 mg Bisacodyl (Dulcolax Supp) 10 mg RECTAL DAILY PRN PRN Reason: SEVERE CONSITIPATION Chlorhexidine Gluconate (Chlorhexidine 2% Cloth) 3 pack TOPICAL DAILY@0400 [facility] Stop: 09/08/18 03:59 Last Admin: 09/06/18 05:04 Dose: Not Given Chlorhexidine Gluconate (Chlorhexidine 2% Cloth) 3 pack TOPICAL DAILY@0400 PRN PRN Reason: Extra cloth needed Stop: 09/08/18 03:59 Clopidogrel Bisulfate (Plavix) 75 mg PO DAILY [facility] Last Admin: 09/05/18 09:15 Dose: 75 mg Heparin Sodium (Porcine) (Heparin Inj) 5,000 units SQ Q8H [facility] Last Admin: 09/06/18 02:55 Dose: 5,000 units Nicardipine HCl 25 mg/ Sodium (Chloride) 250 mls @ 25 mls/hr IV.CONT TITRATE PRN; Protocol PRN Reason: Per Protocol Acetaminophen (Ofirmev Inj) 650 mg in 65 mls @ 400 mls/hr IV.SIG Q6H PRN PRN Reason: fever, pain 1-10 Last Infusion: 09/06/18 05:36 Dose: Infused Labetalol HCl (Trandate Inj) 10 mg IV.PUSH Q1H PRN PRN Reason: Acute Pain Last Admin: 09/03/18 23:32 Dose: 10 mg Lactulose (Lactulose Liq) 30 ml PO DAILY PRN PRN Reason: SEVERE CONSITIPATION Lisinopril (Prinivil) 5 mg PO DAILY [facility] Last Admin: 09/05/18 09:15 Dose: 5 mg Metoprolol Tartrate (Lopressor) 50 mg PO BID [facility] Last Admin: 09/05/18 20:53 Dose: 50 mg Ondansetron HCl (Zofran Inj) 4 mg IV.PUSH Q6H PRN PRN Reason: NAUSEA Last Admin: 09/06/18 09:02 Dose: 4 mg Pantoprazole Sodium (Protonix) 40 mg PO DAILY [facility] Last Admin: 09/05/18 09:17 Dose: 40 mg Prochlorperazine Edisylate (Compazine Inj) 5 mg IV.PUSH Q6H PRN PRN Reason: BREAKTHROUGH NAUSEA Last Admin: 09/04/18 04:01 Dose: 5 mg Sennosides (Senokot) 17.2 mg PO Q12H PRN PRN Reason: Moderate Constipation Sertraline HCl (Zoloft) 100 mg PO DAILY [facility] Last Admin: 09/05/18 09:16 Dose: 100 mg Sodium Chloride (Ns Flush) 2 ml IV.FLUSH BID [facility] Last Admin: 09/05/18 20:54 Dose: 2 ml Sodium Chloride (Ns Flush) 2 ml IV.FLUSH PRN PRN PRN Reason: FLUSH AFTER USING IV ACCESS Sodium Chloride (Ns Flush) 2 ml IV.FLUSH BID [facility] Last Admin: 09/05/18 20:53 Dose: 2 ml Sodium Chloride (Ns Flush) 2 ml IV.FLUSH PRN PRN PRN Reason: FLUSH AFTER USING IV ACCESS Allergies Allergy/AdvReac Type Severity Reaction Status Date / Time codeine AdvReac Mild Nausea Verified 09/02/18 02:25 vomiting Home Medications Medication Instructions Recorded Confirmed Type aspirin 325 mg PO DAILY 09/02/18 09/02/18 History lisinopril 5 mg PO DAILY 09/02/18 09/02/18 History metoprolol tartrate 50 mg PO BID 09/02/18 09/02/18 History nitroglycerin [Nitrostat] 0.4 mg SUBLINGUAL Q5-15M PRN 09/02/18 09/02/18 History omega 0-xeg-zno-fish oil [Fish Oil] 1,000 mg PO BID 09/02/18 09/02/18 History pravastatin 40 mg PO DAILY 09/02/18 09/02/18 History sertraline [Zoloft] 100 mg PO DAILY 09/02/18 09/02/18 History Physical Exam Vital signs: Vital Signs 09/05/18 16:00 09/05/18 16:47 09/05/18 19:59 Temperature 98 F Pulse Rate 78 70 88 Respiratory Rate 18 Blood Pressure 145/80 H Pulse Oximetry 97 09/05/18 20:00 09/05/18 22:00 09/06/18 00:00 Temperature 97.8 F 98.4 F Pulse Rate 76 70 Respiratory Rate 18 18 Blood Pressure 178/82 H 180/90 H 139/85 Pulse Oximetry 94 L 96 09/06/18 04:00 09/06/18 04:04 09/06/18 07:54 Temperature 97.9 F 98 F Pulse Rate 77 78 76 Respiratory Rate 18 18 Blood Pressure 157/69 H 114/63 Pulse Oximetry 96 96 Intake & Output 09/05/18 09/06/18 09/06/18 18:59 06:59 18:59 Intake Total 600 / 600 65 / 65 Output Total 400 / 400 Balance 200 / 200 65 / 65 Weight 81.5 kg Intake: IV 65 / 65 Ofirmev Inj 650 mg In 65 ml @ 65 / 65 400 mls/hr IV.SIG Q6H PRN Rx#: [id number] Oral 600 / 600 Output: Urine 400 / 400 Other: Date of Last Bowel Movement 09/05/18 09/05/18 - Constitutional no acute distress - Routine Neck Exam Absent: JVD - Routine Respiratory Exam Present: CTA bilaterally - Routine Cardiovascular Exam Present: RRR, S1, S2. Absent: murmur, gallop - Routine Abdominal Exam Present: soft, normoactive bowel sounds. Absent: tenderness, organomegaly - Routine Extremities Exam Absent: cyanosis, clubbing, edema Results 09/04/18 03:28 09/04/18 03:28 Comprehensive Metabolic Panel 09/04/18 Range/Units 03:28 Direct Bilirubin 0.3 H (0.0-0.2) mg/dL Indirect Bilirubin 1.3 H (0.0-0.8) mg/dL Intake and Output 09/05/18 09/06/18 09/06/18 22:59 06:59 14:59 Intake Total 600 / 600 65 / 65 Output Total 400 / 400 Balance 200 / 200 65 / 65 Intake: IV 65 / 65 Ofirmev Inj 650 mg In 65 ml @ 65 65 400 mls/hr IV.SIG Q6H PRN Rx#: [id number] Oral 600 / 600 Output: Urine 400 / 400 Other: Date of Last Bowel Movement 09/05/18 Weight 81.5 kg Assessment and Plan - Assessment (1) Coronary artery disease Code(s): I25.10 - Atherosclerotic heart disease of enterprise coronary artery without angina pectoris Status: Chronic Plan: No further chest discomfort. Await Lexiscan nuclear stress test; depending on results, to consider cardiac cath. Continue beta adia, aspirin, GIFTY-I. (2) Acute cerebrovascular accident (CVA) Code(s): I63.9 - Cerebral infarction, unspecified Status: Acute Plan: Stable overnight. Patient tentatively scheduled for CEA tomorrow. (3) Dyslipidemia Code(s): E78.5 - Hyperlipidemia, unspecified Status: Chronic Plan: Very suboptimal lipid profile in light of her CVA and history of CAD. Recommend high dose atorvastatin, recheck lipid profile in 8 weeks. (4) Hypertension Code(s): I10 - Essential (primary) hypertension Status: Chronic Plan: Fluctuating BP's, normotensive this morning. Continue to monitor. - Plan Code Status: full code Discussed Condition With: patient (1) Coronary artery disease Qualifiers: Coronary Disease-Associated Artery/Lesion type: enterprise artery [place] vs. transplanted heart: enterprise heart Associated angina: with unstable angina Qualified Code(s): I25.110 - Atherosclerotic heart disease of enterprise coronary artery with unstable angina pectoris (4) Hypertension Qualifiers: Hypertension type: essential hypertension Qualified Code(s): I10 - Essential (primary) hypertension
--- NOTE | 2018-09-06 12:29 | NM ---
EXAM DATE: 09/06/2018 11:07 AM EDT AGE/SEX: 63 years / Female INDICATIONS:Angina. Myocardial infarction Chest pain with nausea. CLINICAL DATA: This is the patient's initial encounter. Patient reports that signs and symptoms have been present for 1 day and indicates a pain score of 3/10. MEDICAL/SURGICAL HISTORY: Hypercholesterolemia. Hypertension. Hysterectomy. Cholecystectomy. COMPARISON: . DOSE: 8.4 mCi Tc 99m Myoview at rest 26.8 mCi [id number] at stress 0.4 mg Lexiscan STRESS SYMPTOMS: Dyspnea, dizziness, back pain and nausea. EJECTION FRACTION: 62 % TECHNIQUE: The patient underwent pharmacologic stress with infusion of prescribed dose. Continuous ECG tracing was monitored during stress. Gated SPECT imaging was performed after stress and conventi onal SPECT imaging was performed at rest. The examination was performed on a SPECT/CT scanner, both attenuation and non-corrected datasets were reviewed. FINDINGS: Distribution: The maximum perfused segment at stress is in the lateral wall. Perfusion Study: There is decreased perfusion on the stress and rest images at the septum is the so me asymmetry with increased flow on the rest images at the inferior septum at the apex and mid ventri jewell. Gated Study: There are intact wall motion and wall thickening without hypokinetic or dyskinetic segm ents. The ejection fraction is calculated at 62%. RISK CATEGORY: Intermediate (1-3 % Annual Mortality Rate) CONCLUSION: Suspected area of matched decreased perfusion at the septum especially the upper septum. There does a ppear to be possible mild ischemia at the inferior apical and mid ventricle septum. Electronically signed by: Vitaly Rucker MD 09/06/2018 12:28 PM EDT
[2018-09-06] MEDS: Aspirin 325 MG Tablet PO SCH (12:54)
[2018-09-06] MEDS: Sertraline 100 MG Tablet PO SCH (12:55)
[2018-09-06] MEDS: Metoprolol Tartrate 50 MG Tablet PO SCH ×2 (12:58→20:48)
[2018-09-06] MEDS: Lisinopril 5 MG Tablet PO SCH (12:59)
[2018-09-06] MEDS ORDERED: Chlorhexidine Gluconate 2% 1 Pack (2 Cloths) TOPICAL SCH (14:48)
[2018-09-06] MEDS ORDERED: Metoprolol Tartrate 25 MG Tablet PO ONE (14:48)
[2018-09-06] MEDS ORDERED: Sodium Chlor 0.9% Inj 500 ML IV.SIG SCH (15:00)
[2018-09-06] MEDS ORDERED: fentaNYL Citrate Inj 100 MCG/2 ML Ampul IV.PUSH SCH (21:45)
[2018-09-07] MEDS: Heparin - SQ 10,000 UNITS/ML Vial SQ SCH ×3 (02:24→17:16)
[2018-09-07] MEDS: Sod Chloride 0.9% Inj 1,000 ML IV.CONT SCH ×5 (03:23→23:34)
[2018-09-07] MEDS: Chlorhexidine Gluconate 2% 1 Pack (2 Cloths) TOPICAL SCH (03:45)
[2018-09-07] MEDS ORDERED: Heparin/NS PF Inj 500 ML ONE (07:00)
[2018-09-07] MEDS ORDERED: fentaNYL Citrate Inj 100 MCG/2 ML Ampul ONE (07:00)
[2018-09-07] MEDS ORDERED: Heparin 10,000 UNITS/10 ML Vial (for IV use) ONE (07:00)
[2018-09-07] MEDS ORDERED: Tirofiban Inj 12,500 MCG/250 ML PLAST..BAG ONE (07:39)
--- NOTE | 2018-09-07 08:05 | CATHPROC ---
[employer] HIS Report Study Information Study Number Admission Scheduled Start Study Start [id number] Sep 02 2018 5:19AM 09/07/2018 Sep 07 2018 6:57AM Ranger Service Cardiac Catheterization Admit Source Facility Department Emergency department [facility] - Veneer Repairer Machine Physician and Clinical Staff Initial Roman James Watch Parts Grinder Frank RN, Beau Recorder Anisa Ahumada,RT(R) Scrub Jacob Rosales RCIS(BS) Procedures Performed Procedure Location (Site) Vessel Name Coronary Angiograms LCA Left Coronary Coronary Angiograms RCA Right Coronary L Heart Cath LV Gram-hand inj. LV LV Ventricle PTCA OM1 Prox CIRC Stent OM1 Prox CIRC Wire insertion Radial (right) Radial Art. Equipment Time Reference Services Head Description Size Mfg Part Number Used/Scraped [id number] 07:38 [employer] WIRE, ASAKoogame PROWATER 180CM 180CM Used *[id number] TRANSDUCER, TRUWAVE [id number] 06:58 TIRADO PACHECO * Used W/STOCKCOCK *[id number] *[id number] [id number] *[id number] *[id number] 06:58 MALLINCKRODT SYRINGE, ANGIOMAT 150ML 150ML *[id number] Used 2S [employer] [place] CONCEPT DRAPE, RADIAL FEMORAL FULL 06:58 * [id number] *[id number] Used DEVELOPMENT BODY [id number] 06:58 Induction Manager BLANKET,WARM AIR CCL * Used *[id number] 06:58 [place] [employer] INDUSTRIES PACK, CCL CUSTOM * Used *[id number] 06:58 Induction Manager SUPPORT, ARTERIAL ADULT [id number] *[id number] Used [id number] 06:58 [place] [employer] PACER PEN, SKIN DUAL W/ RULER * Used *[id number] 07:43 MEDTRONIC BALLOON, 2.5 X 6MM EUPHORA 6MM Used *[id number] 07:46 [employer]TR[employer]IC STENT, 2.75 8 INTEGRITY 2.75 8 Used *[id number] 07:45 Secoo 30 VAL INDEFLATOR Used *[id number] BAND, RADIAL COMPRESSION TR [id number] 07:54 [employer] 24CM Used SHORT 24 *[id number] BAND, RADIAL COMPRESSION TR [id number] 08:00 Secoo 24CM Used SHORT 24 *[id number] SHEATH, FR6 RADIAL PRELUDE 06:58 Secoo FR 6 [id number] Used EASE 11CM [id number] 06:58 [employer] MEDICAL WIRE, EXCHANGE 260CM 3MMJ 260CM Used *[id number] 06:58 NAMIC MANIFOLD, 4 PORT * Used *[id number] 06:58 [employer]COMED OMNIPAQUE, 350 MG, 150ML 150ML [id number] Used CATHETER, FR5 OPTITORQUE [id number] 07:31 TERUMO MEDICAL FR 5 Used RADIAL TIG 4.0 *[id number] Equipment Model, Serial, Lot Number and Expiration Data Description Model Number Serial Number Lot Number Expiration Date STENT, 2.75 8 INTEGRITY [id number] 06-06-2019 History: Current Medications Medication Dosage/Unit Route Frequency Last Date/Time Taken ASA LIPITOR PLAVIX LISINOPRIL LOPRESSOR Zoloft History: Allergies Allergy Reaction codeine Nausea vomiting History: Risk Factors Family History of Hypertension Dyslipidemia Previous CO Previous Heart Failure Premature CAD Yes Yes Yes Yes No Prior Valve Prior PCI Prior PCIDate Prior CABG Surgery No Yes 12/01/2007 No Cerebrovascular Peripheral Artery Chronic Lung On Dialysis Diabetes Disease Disease Disease No Yes No No No History: Stress Tests Stress or Imaging Studies Performed Yes Standard Exercise Stress Test No Stress Echo No Stress Test SPECT Stress Test SPECT Result Stress Test SPECT Ischemia Risk/Extent Yes Positive Intermediate Stress Test CMR No Cardiac CTA Coronary Calcium Score No No History: Other Current Smoker Method Quit Packs a Day Years Used Pack Years No Cigarettes 30 Years Ago 4 15 60 Labs Hgb (g/dl) Hct (%) WBC (l/cumm) Platelets (thousands) 11.60-17.00 35.00-51.00 4.00-11.00 150.00-450.00 14.3 42.2 11.6 232 Glucose (mg/dl) BUN (mg/dl) Creatinine (mg/dl) BUN:Creatinine (1:x) 74.00-106.00 7.00-18.00 0.50-1.30 10.00-20.00 105 10 0.7 14.3 Na (meq/l) K (meq/l) 136.00-145.00 3.50-5.10 143 3.6 INR (PTT:PT) 0.90-1.10 1 Troponin I (ng/ml) CPK (u/l) CPK-MB (ng/ML) 0.02-0.05 26.00-308.00 0.50-3.60 1.26 53 Not Drawn Medication Medication Total Dose (Bolus/Oral) Medication Total Dosage/Unit 1% XYLOCAINE 5 mL AGGRASTAT BOLUS 42 mL/hr HEPARIN 3200 units NTG (IC) 100 mcg PLAVIX 300 mg RADIAL COCKTAIL 5 mL (Bolus) VERSED 2 mg Medications (Bolus/Oral) Medication Time Given Dosage/Unit Administered By Reason 1% XYLOCAINE 09/07/2018 7:28:27 AM 5 mL Roman Davis 5 mL 1% XYLOCAINE given in lab by Roman Davis in Right Radial via Subcutaneous. VERSED 09/07/2018 7:28:39 AM 2 mg Beau Marie RN 2 mg VERSED given in lab by Beau Marie RN in Left Wrist via Peripheral IV. Ordered by Roman Davis. Ntg 200mcg Verapamil 2.5mg Heparin RADIAL COCKTAIL 09/07/2018 7:30:34 AM 5 mL (Bolus) Roman Davis 2500U 5 mL (Bolus) RADIAL COCKTAIL given in lab by Roman Davis in Right Radial via Radial. Using [Solution Name]. Ordered by Roman Davis. Reason: Ntg 200mcg Verapamil 2.5mg Heparin 2500U. HEPARIN 09/07/2018 7:38:49 AM 3200 units Beau Marie RN 3200 units HEPARIN given in lab by Beau Marie RN via Peripheral IV. Ordered by Roman Davis. AGGRASTAT BOLUS 09/07/2018 7:41:47 AM 42 mL/hr Beau Marie RN 42 mL/hr AGGRASTAT BOLUS given in lab by Beau Marie RN via Peripheral IV. Pump/Drip Flow = 0 ml/hr using [Solution Name]. Ordered by Roman Davis. NTG (IC) 09/07/2018 7:49:28 AM 100 mcg Roman Davis 100 mcg NTG (IC) given in lab by Roman Davis via Intra-coronary. Ordered by Roman Davis. PLAVIX 09/07/2018 7:55:27 AM 300 mg Beau Marie RN 300 mg PLAVIX given in lab by Beau Marei RN via Oral. Ordered by Roman Davis. Medication (Drip) Medication Time Given Dosage/Unit Concentration/Unit Diluent (ml) Solution AGGRASTAT DRIP 09/07/2018 7:45:36 AM 0.15 mcg/kg/min 12.5 mg 250 NaCl .9 0.15 mcg/kg/min AGGRASTAT DRIP given in lab by Beau Marie RN in Left Wrist via Peripheral IV. Pump/ Drip Flow = 14.67 ml/hr using NaCl .9 with a concentration of 12.5 mg in 250 ml. Ordered by Roman Davis. IV Solutions 09/07/2018 7:07:16 AM 50 mL (IV) NaCl .9 Patient arrived on IV Solutions in Left Wrist via Peripheral IV. Pump/Drip Flow using NaCl .9. Initial Case Assessment Cardiovascular Chest Pain 0 Edema Present Skin color Skin None Normal Warm Dry Circulatory - Right Pulses Dorsalis Pedis Brachial Radial d 2 3 Scale (0,1,2,3,4,d) Circulatory - Left Pulses Dorsalis Pedis Brachial Radial d Scale (0,1,2,3,4,d) Neurological State Oriented to time-place- Alert Moves all extremities person Chronological Log Time Study Chronological Log 7:06:48 Patient arrived via Bed. 7:06:50 Patient Name, D.O.B, / Armband Verified By R.N. 7:06:50 Consent signed by the physician and the patient and verified by the Veneer Repairer Machine staff. 7:06:55 Pre-op and post- op instructions given; patient acknowledges understanding of instructions. 7:06:56 Presedation assessment performed by Veneer Repairer Machine RN. 7:06:58 Allens test performed on the right radial and ulnar artery. 7:07:01 Patient has been NPO for More than 6Hrs. 7:07:02 Skin Breakdown- bruises throughout body. rash in left groin. 7:07:06 Patient Warmer Placed on the Table. 7:07:07 Anatoly Prominences Protected 7:07:08 A # 20 IV was noted in the Wrist (left). Grade = 0 7:07:16 Patient arrived on IV Solutions in Left Wrist via Peripheral IV. Pump/Drip Flow using NaCl . 9. 7:07:24 History and physical on the chart or being dictated. Assessment: Initial Case, Chest Pain=0, Edema=None, Color=Normal, Skin = Warm, Dry Right Pulses: Durga Ped=d, Brachial=2, Radial=3 7:07:31 Left Pulses: Durga Ped=d Neurological: State=Alert, Ox3, COOK Vitals capture started with the following parameters, Patient=Adult, Interval=5 min, Initial Pre bwrlc=846 mmHg, 7:12:33 Deflation Rate=5 mmHg, Cuff placed on Left Arm 7:14:12 HR=73 bpm, WJQQ=335/97 mmhg, SpO2=95 %, Resp=18 B/min 7:18:19 Reference ECG taken 7:18:22 HR=73 bpm, YHHC=862/91 mmhg, SpO2=95.0 %, Resp=19 B/min 7:19:44 Right Radial and right groin prepped with 2% chlorhexidine, and draped after a 3 min. waitin g time. 7:20:30 MD paged 7:21:06 MD responded 7:23:19 HR=82 bpm, SFPO=043/84 mmhg, SpO2=96 %, Resp=19 B/min 7:23:54 Pressure channel 1 zeroed. 7:25:08 MD arrived. Time Out. Correct patient, correct procedure, correct physician, labs, allergies, and equipment verified with propagator laborer 7:27:46 team present. Fire risk assesment completed (see hard stop sheet for coding). Time Out Concu rred by MD and individual staff in procedure. 7:28:18 HR=75 bpm, PIVE=304/85 mmhg, SpO2=93.0 %, Resp=17 B/min 7:28:24 Case Start 7:28:27 5 mL 1% XYLOCAINE given in lab by Roman Davis in Right Radial via Subcutaneous. 7:28:39 2 mg VERSED given in lab by Beau Marie RN in Left Wrist via Peripheral IV. Ordered by Roman Monaco. 7:30:06 Access site was Right Radial Artery . A SHEATH, FR6 RADIAL PRELUDE EASE 11CM FR 6 was advanced into the Radial (right) using the Freddy long 7:30:11 technique. 5 mL (Bolus) RADIAL COCKTAIL given in lab by Roman Davis in Right Radial via Radial. Using [Cristine ution Name]. Ordered 7:30:34 by Roman Davis. Reason: Ntg 200mcg Verapamil 2.5mg Heparin 2500U. Recorded Pressure: Ao, VK=640, Condition=Condition 1 7:32:05 (Aorta) Ao 131/83/104 A CATHETER, FR5 OPTITORQUE RADIAL TIG 4.0 FR 5 was advanced over a wire. OMNIPAQUE, 350 MG, 150M L 150ML 7:32:45 was used for injections. 7:33:15 HR=97 bpm, HXPX=843/76 mmhg, SpO2=90.0 %, Resp=20 B/min 7:33:43 The RCA was injected and visualized at various angles. OMNIPAQUE, 350 MG, 150ML 150ML used. 7:34:07 Catheter was removed A JL 3.5 INFINITI CATHETER FR 5 was advanced over a wire. OMNIPAQUE, 350 MG, 150ML 150ML was use d for 7:34:33 injections. 7:36:57 The LCA was injected and visualized at various angles. OMNIPAQUE, 350 MG, 150ML 150ML used. 7:38:14 HR=86 bpm, JQLV=901/80 mmhg, SpO2=90.0 %, Resp=20 B/min 7:38:49 3200 units HEPARIN given in lab by Beau Marie RN via Peripheral IV. Ordered by El Davis After removing the current catheter a XB 3.5 GUIDE CATHETER FR 6 was advanced over a WIRE, EXCHA NGE 260CM 7:38:56 3MMJ 260CM. 42 mL/hr AGGRASTAT BOLUS given in lab by Beau Marie RN via Peripheral IV. Pump/Drip Flow = 0 m l/hr using 7:41:47 [Solution Name]. Ordered by Roman Davis. 7:42:06 A WIRE, ASAHI PROWATER 180CM 180CM was inserted via Radial (right). 7:43:17 HR=80 bpm, BVIL=340/83 mmhg, SpO2=91.0 %, Resp=17 B/min A BALLOON, 2.5 X 6MM EUPHORA 6MM was inserted over WIRE, ASAHI PROWATER 180CM 180CM via the Radi al 7:43:30 (right). A BALLOON, 2.5 X 6MM EUPHORA 6MM over a WIRE, ASAHI PROWATER 180CM 180CM in the OM1 Prox was inf lated 7:44:02 using a 30 VAL INDEFLATOR at 13 val for 30 sec. A BALLOON, 2.5 X 6MM EUPHORA 6MM over a WIRE, ASAHI PROWATER 180CM 180CM in the OM1 Prox was inf lated 7:44:56 using a 30 VAL INDEFLATOR at 13 val for 30 sec. 7:44:57 Activated Clotting Time Drawn 0.15 mcg/kg/min AGGRASTAT DRIP given in lab by Beau Marie RN in Left Wrist via Peripheral IV. Pump/Drip Flow = 7:45:36 14.67 ml/hr using NaCl .9 with a concentration of 12.5 mg in 250 ml. Ordered by Roman Davis. 7:45:48 Balloon Removed. An STENT, 2.75 8 INTEGRITY 2.75 8 Bare Metal Stent was inserted through a XB 3.5 GUIDE CATHETER FR 6 over a 7:47:45 WIRE, ASAHI PROWATER 180CM 180CM. A STENT, 2.75 8 INTEGRITY 2.75 8 was deployed using a 30 VAL INDEFLATOR at 18 atmospheres for 30 seconds in 7:48:05 the OM1 Prox. 7:48:18 HR=81 bpm, KNVJ=543/79 mmhg, SpO2=90.0 %, Resp=14 B/min 7:48:45 ACT (Normal Range 90-180) = 306 7:49:28 100 mcg NTG (IC) given in lab by Roman Davis via Intra-coronary. Ordered by Roman Davis. 7:49:37 Delivery device removed 7:50:25 Wire removed 7:50:32 Catheter was removed A MPA-2 INFINITI CATHETER FR 5 was advanced over a wire. OMNIPAQUE, 350 MG, 150ML 150ML was used for 7:51:00 injections. Recorded Pressure: LV, HR=86, Condition=Condition 1 7:52:01 (Left Ventricle) LV 144/1/4 Recorded Pressure: LV, Ao, HR=76, Condition=Condition 1 7:52:16 (Left Ventricle) LV 159/-2/7, (Aorta) Ao 153/69/98 7:52:37 The LV was manually injected with 10 cc's and visualized. OMNIPAQUE, 350 MG, 150ML 150ML use d. 7:52:44 ACT (Normal Range 90-180) = 306 7:52:49 Case End (Physician broke scrub) 7:53:21 HR=82 bpm, TJKZ=142/75 mmhg, SpO2=91.0 %, Resp=15 B/min Radial Compression Device Used. 15 mLs of air placed in BAND, RADIAL COMPRESSION TR SHORT 24 24C M. Affected 7:55:00 hand ~O2 SATURATION~ % O2 saturation. Radial Compression Device Used. 10 mLs of air placed in BAND, RADIAL COMPRESSION TR SHORT 24 24C M. Affected 7:55:01 hand ~O2 SATURATION~ % O2 saturation. 7:55:15 No case complications noted. 7:55:22 Cine recording checked. 7:55:22 Holding Area notified of successful intervention. 7:55:27 300 mg PLAVIX given in lab by Beau Marie RN via Oral. Ordered by Roman Davis. 7:55:43 Bedside Report will be given. 7:55:44 Implantable Device card placed in patient's chart. 7:55:49 A Left Heart Cath was performed. 7:58:18 HR=76 bpm, GPHP=866/85 mmhg, SpO2=93.0 %, Resp=18 B/min 8:02:44 Vitals capture stopped. 8:02:51 Patient moved to [facility] End Study - Contrast Media Used In Study Contrast Total Opened (mL) Total Used (mL) Total Wasted (mL) Omnipaque 150 90 60 End Study - Maximum Contrast Load Max Contrast Load (mL) 582.1 End Study - Radiation Exposure Fluoro Time (minutes) 8.4 End Study - Patient Disposition Complications Transferred To Interventional Outcome No Telemetry Bed successful
--- NOTE | 2018-09-07 08:11 | P.PNCA ---
Subjective Interval history: No CP, dyspnea, dizziness, palpitations. Medications and Allergies Active Medications: Active Medications Acetaminophen (Tylenol) 650 mg PO Q6H PRN PRN Reason: Fever >101f Last Admin: 09/04/18 03:00 Dose: 650 mg Al Hydroxide/Mg Hydroxide (Milk Of Raudel De La Rosa) 30 ml PO Q12H PRN PRN Reason: Mild Constipation Albuterol (Albuterol Neb (Prn)) 2.5 mg NEB Q2HR NEB PRN PRN Reason: SHORTNESS OF BREATH/WHEEZING Aspirin (Aspirin) 325 mg PO DAILY [facility] Last Admin: 09/06/18 12:54 Dose: 325 mg Atorvastatin Calcium (Lipitor) 80 mg PO HS [facility] Last Admin: 09/06/18 20:48 Dose: 80 mg Bisacodyl (Dulcolax Supp) 10 mg RECTAL DAILY PRN PRN Reason: SEVERE CONSITIPATION Chlorhexidine Gluconate (Chlorhexidine 2% Cloth) 3 pack TOPICAL DAILY@0400 [facility] Stop: 09/08/18 03:59 Last Admin: 09/07/18 03:45 Dose: Not Given Chlorhexidine Gluconate (Chlorhexidine 2% Cloth) 3 pack TOPICAL DAILY@0400 PRN PRN Reason: Extra cloth needed Stop: 09/08/18 03:59 Chlorhexidine Gluconate (Chlorhexidine 2% Cloth) 3 pack TOPICAL KICK PRESS SETTER [facility] Stop: 09/07/18 14:47 Clopidogrel Bisulfate (Plavix) 75 mg PO DAILY [facility] Last Admin: 09/06/18 12:54 Dose: 75 mg Diphenhydramine HCl (Benadryl) 50 mg PO KICK PRESS SETTER [facility] Stop: 09/10/18 21:44 Fentanyl Citrate (Fentanyl Inj) 50 mcg IV.PUSH KICK PRESS SETTER [facility] Stop: 09/10/18 21:44 Heparin Sodium (Porcine) (Heparin Inj) 5,000 units SQ Q8H [facility] Last Admin: 09/07/18 02:24 Dose: Not Given Nicardipine HCl 25 mg/ Sodium (Chloride) 250 mls @ 25 mls/hr IV.CONT TITRATE PRN; Protocol PRN Reason: Per Protocol Acetaminophen (Ofirmev Inj) 650 mg in 65 mls @ 400 mls/hr IV.SIG Q6H PRN PRN Reason: fever, pain 1-10 Last Infusion: 09/06/18 05:36 Dose: Infused Lactated Ringer's (Lr 1000 Ml Inj) 1,000 mls @ 30 mls/hr IV.SIG .Q24H [facility] Stop: 09/07/18 14:59 Sodium Chloride (Ns Inj) 500 mls @ 30 mls/hr IV.SIG .Q10H [facility] Stop: 09/07/18 14:59 Sodium Chloride (Ns Inj) 1,000 mls @ 100 mls/hr IV.CONT .Q10H [facility] Last Admin: 09/07/18 03:23 Dose: 100 mls/hr Sodium Chloride (Ns Inj) 1,000 mls @ 100 mls/hr IV.CONT .Q10H [facility] Stop: 09/07/18 20:14 Tirofiban/Sodium Chloride (Aggrastat Inj) 12,500 mcg in 250 mls @ 0 mls/hr IV.CONT .Q0M [facility]; Protocol Stop: 09/08/18 03:00 Labetalol HCl (Trandate Inj) 10 mg IV.PUSH Q1H PRN PRN Reason: Acute Pain Last Admin: 09/03/18 23:32 Dose: 10 mg Lactulose (Lactulose Liq) 30 ml PO DAILY PRN PRN Reason: SEVERE CONSITIPATION Lisinopril (Prinivil) 5 mg PO DAILY [facility] Last Admin: 09/06/18 12:59 Dose: 5 mg Metoprolol Tartrate (Lopressor) 50 mg PO BID [facility] Last Admin: 09/06/18 20:48 Dose: 50 mg Midazolam HCl (Versed Inj) 1 mg IV.PUSH KICK PRESS SETTER [facility] Stop: 09/10/18 21:44 Ondansetron HCl (Zofran Inj) 4 mg IV.PUSH Q6H PRN PRN Reason: NAUSEA Last Admin: 09/06/18 17:08 Dose: 4 mg Pantoprazole Sodium (Protonix) 40 mg PO DAILY [facility] Last Admin: 09/06/18 12:53 Dose: 40 mg Povidone Iodine (Betadine 5% Antisepsis Kit) 1 applicatio EACH NARE KICK PRESS SETTER [facility] Stop: 09/07/18 14:47 Prochlorperazine Edisylate (Compazine Inj) 5 mg IV.PUSH Q6H PRN PRN Reason: BREAKTHROUGH NAUSEA Last Admin: 09/04/18 04:01 Dose: 5 mg Sennosides (Senokot) 17.2 mg PO Q12H PRN PRN Reason: Moderate Constipation Sertraline HCl (Zoloft) 100 mg PO DAILY [facility] Last Admin: 09/06/18 12:55 Dose: 100 mg Sodium Chloride (Ns Flush) 2 ml IV.FLUSH BID [facility] Last Admin: 09/06/18 20:49 Dose: 2 ml Sodium Chloride (Ns Flush) 2 ml IV.FLUSH PRN PRN PRN Reason: FLUSH AFTER USING IV ACCESS Sodium Chloride (Ns Flush) 2 ml IV.FLUSH BID [facility] Last Admin: 09/06/18 20:49 Dose: Not Given Sodium Chloride (Ns Flush) 2 ml IV.FLUSH PRN PRN PRN Reason: FLUSH AFTER USING IV ACCESS Sodium Chloride (Ns Flush) 2 ml IV.FLUSH BID [facility] Sodium Chloride (Ns Flush) 2 ml IV.FLUSH PRN PRN PRN Reason: FLUSH AFTER USING IV ACCESS Allergies Allergy/AdvReac Type Severity Reaction Status Date / Time codeine AdvReac Mild Nausea Verified 09/02/18 02:25 vomiting Home Medications Medication Instructions Recorded Confirmed Type aspirin 325 mg PO DAILY 09/02/18 09/02/18 History lisinopril 5 mg PO DAILY 09/02/18 09/02/18 History metoprolol tartrate 50 mg PO BID 09/02/18 09/02/18 History nitroglycerin [Nitrostat] 0.4 mg SUBLINGUAL Q5-15M PRN 09/02/18 09/02/18 History omega 7-pug-txh-fish oil [Fish Oil] 1,000 mg PO BID 09/02/18 09/02/18 History pravastatin 40 mg PO DAILY 09/02/18 09/02/18 History sertraline [Zoloft] 100 mg PO DAILY 09/02/18 09/02/18 History Physical Exam Vital signs: Vital Signs 09/06/18 12:00 09/06/18 16:00 09/06/18 20:00 Temperature 98.0 F 98.8 F 97.5 F L Pulse Rate 78 76 81 Respiratory Rate 20 18 18 Blood Pressure 164/81 H 145/80 H 177/80 H Pulse Oximetry 95 96 95 09/06/18 20:30 09/07/18 00:00 09/07/18 00:30 Temperature 98 F Pulse Rate 85 74 67 Respiratory Rate 18 Blood Pressure 170/84 H Pulse Oximetry 96 09/07/18 01:03 09/07/18 02:55 09/07/18 04:00 Temperature 97.9 F Pulse Rate 68 Respiratory Rate 18 18 18 Blood Pressure 151/62 H Pulse Oximetry 95 Intake & Output 09/06/18 09/07/18 09/07/18 18:59 06:59 18:59 Weight 81.5 kg Other: # Voids 1 Date of Last Bowel Movement 09/05/18 09/06/18 - Constitutional no acute distress - Routine Neck Exam Absent: JVD - Routine Respiratory Exam Present: CTA bilaterally - Routine Cardiovascular Exam Present: RRR, S1, S2. Absent: murmur, gallop - Routine Abdominal Exam Present: soft, normoactive bowel sounds. Absent: tenderness, organomegaly - Routine Extremities Exam Absent: cyanosis, clubbing, edema Results 09/04/18 03:28 09/04/18 03:28 Intake and Output 09/06/18 09/07/18 09/07/18 22:59 06:59 14:59 Other: # Voids 1 1 Date of Last Bowel Movement 09/06/18 Weight 81.5 kg - Imaging and Cardiology Imaging: Impressions Myocardial Perfusion Scan Nuc Med 09/06/18 00:00 CONCLUSION: Suspected area of matched decreased perfusion at the septum especially the upper septum. There does appear to be possible mild ischemia at the inferior apical and mid ventricle septum. Assessment and Plan - Assessment (1) Coronary artery disease Code(s): I25.10 - Atherosclerotic heart disease of [place] coronary artery without angina pectoris Status: Chronic Plan: No further chest discomfort. Cath shows high grade in-stent disease in obtuse marginal treated successfully with repeat stenting. Continue beta adia, aspirin, Plavix, GIFTY-I. (2) Acute cerebrovascular accident (CVA) Code(s): I63.9 - Cerebral infarction, unspecified Status: Acute Plan: Stable overnight. SANKET later today. (3) Dyslipidemia Code(s): E78.5 - Hyperlipidemia, unspecified Status: Chronic Plan: Very suboptimal lipid profile in light of her CVA and history of CAD. Recommend high dose atorvastatin, recheck lipid profile in 8 weeks. (4) Hypertension Code(s): I10 - Essential (primary) hypertension Status: Chronic Plan: Mostly hypertensive. Increase Lisinopril. - Plan Code Status: full code Discussed Condition With: patient (1) Coronary artery disease Qualifiers: Coronary Disease-Associated Artery/Lesion type: [place] artery [place] vs. transplanted heart: [place] heart Associated angina: with unstable angina Qualified Code(s): I25.110 - Atherosclerotic heart disease of [place] coronary artery with unstable angina pectoris (4) Hypertension Qualifiers: Hypertension type: essential hypertension Qualified Code(s): I10 - Essential (primary) hypertension
--- NOTE | 2018-09-07 08:34 | P.PN ---
Subjective Interval history: seen in DOC unit post cath tolerated procedure no complains telemetry in Physical Exam Vital signs: Vital Signs 09/06/18 12:00 09/06/18 16:00 09/06/18 20:00 Temperature 98.0 F 98.8 F 97.5 F L Pulse Rate 78 76 81 Respiratory Rate 20 18 18 Blood Pressure 164/81 H 145/80 H 177/80 H Pulse Oximetry 95 96 95 09/06/18 20:30 09/07/18 00:00 09/07/18 00:30 Temperature 98 F Pulse Rate 85 74 67 Respiratory Rate 18 Blood Pressure 170/84 H Pulse Oximetry 96 09/07/18 01:03 09/07/18 02:55 09/07/18 04:00 Temperature 97.9 F Pulse Rate 68 Respiratory Rate 18 18 18 Blood Pressure 151/62 H Pulse Oximetry 95 09/07/18 04:30 09/07/18 08:17 Temperature Pulse Rate 78 Respiratory Rate Blood Pressure Pulse Oximetry 94 L Intake & Output 09/06/18 09/07/18 09/07/18 18:59 06:59 18:59 Weight 81.5 kg Other: # Voids 1 Date of Last Bowel Movement 09/05/18 09/06/18 Narrative: no distress Alert and oriented x3. speech clear SKIN: Warm and dry. HEAD: Normocephalic. no temporal tenderness EYES: No scleral icterus. No injection or drainage. , pupils equal NECK: Supple, trachea midline. No JVD. CARDIOVASCULAR: Regular rate and rhythm without murmurs, gallops, or rubs. RESPIRATORY: Breath sounds equal bilaterally. No accessory muscle use. GASTROINTESTINAL: Abdomen soft, non-tender, nondistended. MUSCULOSKELETAL: No cyanosis, or edema. mild Left upper extremity weakness 4+ out of 5 strength left upper extremity. 5 out of 5 strength in all other extremities. gait steady grossly no sensory deficits right wrist- - psot cath site- dressing in lace BACK: Nontender without obvious deformity. No CVA tenderness. Results - Labs CBC & Chem 7: 09/08/18 05:44 09/08/18 05:44 Laboratory Results - last 24 hr 09/06/18 13:36 Blood Type O Negative Antibody Screen Negative - Imaging Impressions Myocardial Perfusion Scan Nuc Med 09/06/18 00:00 CONCLUSION: Suspected area of matched decreased perfusion at the septum especially the upper septum. There does appear to be possible mild ischemia at the inferior apical and mid ventricle septum. - Procedures 09/07- cardiac cath with BMS of OM Assessment and Plan - Plan 63 years old right handed female Neuro/Psych: Acute CVA status post alteplase -left facial droop/tongue deviation, left upper extremity weakness Right frontoparietal occipital History of Depression CT brain revealed no acute intracranial findings CT angiogram revealed no large occlusions. No acute findings. CT angiogram of the neck revealed right carotid bulb stenosis 60%. Left carotid bulb stenosis 45-50%. Vertebrals patent. Received 7.3 mg of alteplase to ED bolus followed by 65.5 mg infusion MRI brain revealed right frontoparietal occipital infarcts Repeat CT brain 24 hours post alteplase infusion reveals no hemorrhage Goal keep systolic blood pressure less than 180, diastolic pressure less than 105. Post alteplase infusion PT/OT/ST evaluate and treat. 2D echocardiogram as below Dr. Kiran Resuming sertraline 100 mg daily. Resume when clinically indicated - Plan for eventual right-sided carotid endarterectomy. CV: CAD -S/P cardiac cath - 09/07- BMS placed on OM - troponin 1.26 on admission Hypertension Hyperlipidemia - cotninue on BB/ASA/GIFTY - Atorvastatin 80 mg hs -2D echocardiogram The left ventricular systolic function is normal with an estimated ejection fraction in the range of 60-65%. Normal left ventricular size. No regional wall motion abnormalities are present. Trace mitral valve regurgitation - For SANKET today - Plan for eventual right-sided carotid endarterectomy by [facility] -Dr. Davis ff //Elevated total bilirubin = ff trend //Hyperglycemia = Likely secondary to stress. Hemoglobin A1c 5.5. No longer requiring any insulin. Discontinue insulin sliding scale. - patient states non diabetic- glucose readings good //Leukocytosis = Likely stress related. //Hypokalemia //Hypophosphatemia = Resolved PT/OT evaluate and treat //Prophylaxis -GI -pantoprazole -DVT -heparin subcu Discussed Condition With: Patient, nurse Discharge Planning: Plan for carotid endarterectomy sometime this week cardiology, vascular surgery, neurology ff Physical therapy and Occupational Therapy following.
[2018-09-07] MEDS ORDERED: Iohexol 350 MG/ML 100 ML Vial (for Cath Lab) IVCONTRAST ONE (08:48)
[2018-09-07] MEDS ORDERED: Tirofiban Inj 12,500 MCG/250 ML PLAST..BAG IV.CONT SCH (09:00)
--- NOTE | 2018-09-07 10:58 | MA ---
cc: Roman Davis MD DATE: 09/07/2018 PROCEDURE: Left heart catheterization, selective coronary angiography, left ventriculography, angioplasty and stent of the obtuse marginal. PROCEDURE NOTE: The patient was brought to the cardiac catheterization laboratory in a fasting state after having signed informed consent. The right radial region was prepped and draped as per policy and anesthetized with 1% lidocaine. Arterial access was obtained via the right radial artery and a 6-Occitan sheath placed. Coronary arteriography was performed using a Carolina catheter to engage the right coronary and a Mary left 3.5 to engage the left main. Left ventriculography was done using a multipurpose catheter. Percutaneous coronary intervention was done as described below. There were no apparent immediate complications. A radial artery compression band was applied to her right wrist at the end of the case to achieve hemostasis. HEMODYNAMIC DATA: Left ventricle 159 with an end diastolic pressure less than 10. Aorta 153/69 with a mean of 98. There was no significant transvalvular aortic gradient on pullback of the pigtail catheter. CORONARY ARTERIOGRAPHY: The left main is normal. The left anterior descending demonstrates a stent from its proximal to mid portion. There is overall mild diffuse restenosis of the stent resulting in up to 25% stenosis. There is up to 10% stenosis in the very proximal LAD. The distal LAD appears to be angiographically normal. The LAD gives rise to 2, relatively small diagonals which have minimal luminal irregularities. The left circumflex is a large, dominant vessel, which is diffusely diseased in its proximal to midportion. There is up to 25% very proximal stenosis and 30% mid stenosis. A stent is evident in the very proximal obtuse marginal and there is 80% restenosis of the stent at its proximal edge. The posterior descending artery is normal. The right coronary artery is a small, nondominant vessel with 65% proximal stenosis. LEFT VENTRICULOGRAPHY: Contrast injection of the left ventricle reveals no segmental wall motion abnormalities. Ejection fraction is estimated at 65%. PERCUTANEOUS CORONARY INTERVENTION DESCRIPTION: Aggrastat was given as per protocol. Adequate heparin was given during the procedure to achieve an ACT greater than 250 seconds. Using a 6-Occitan XB 3.5 guiding catheter, the ostium of the left main was reengaged. Using a 0.014 [place] guidewire, the disease in the obtuse marginal was crossed without difficulty and the tip of the wire positioned distally. Predilation was done using a 2.5 mm Euphora balloon catheter. Stenting was done using a 2.75 mm bare-metal Integrity stent, which was deployed at 15 atmospheres for 30 seconds. Final angiography shows overall good results with reduction of the initial stenosis to roughly 0% residual with no definite evidence for dissection or distal embolization. The patient tolerated the procedure well. She did develop chest pain with balloon inflations relieved by balloon deflations. CONCLUSIONS: 1. Severe in-stent obtuse marginal disease, status post repeat stenting. 2. Overall, mild restenosis of a [id number] left anterior descending stent. 3. Moderate disease in a small nondominant right coronary. 4. Normal left ventricular function with estimated ejection fraction of 65%. MD RIK Hough/liam , 08:02 AM , 08:10 AM LEO
[2018-09-07] MEDS: Metoprolol Tartrate 50 MG Tablet PO SCH ×2 (11:43→21:22)
[2018-09-07] MEDS: Aspirin 325 MG Tablet PO SCH (11:43)
[2018-09-07] MEDS: Sertraline 100 MG Tablet PO SCH (11:43)
[2018-09-07] MEDS: Lisinopril 5 MG Tablet PO SCH (11:44)
[2018-09-07] MEDS ORDERED: Metoprolol Tartrate 25 MG Tablet PO ONE (12:14)
[2018-09-07] MEDS ORDERED: Chlorhexidine Gluconate 2% 1 Pack (2 Cloths) TOPICAL ONE (12:14)
[2018-09-07] MEDS ORDERED: Sodium Chlor 0.9% Inj 500 ML IV.SIG SCH (13:00)
--- NOTE | 2018-09-07 18:09 | P.PNVS ---
Subjective Subjective/Hospital Course: 09/04/2018 Patient with symptoms of right hemispheric stroke and clear weakness of the right arm and hand slowly resolving Patient does have 60% right internal carotid artery stenosis and this corresponds to the symptoms and I believe embolism from this area is responsible for patient's stroke. I will add patient called down the few days and all things equal proceed with right carotid endarterectomy Friday morning Full consult dictated Thanks J 09/05/2018 I reviewed laboratory and diagnostic procedures. The patient does have weakness of her left arm consistent with a right hemispheric stroke, although the CT of the head performed on arrival and a repeat one does not show any, so patient is clearly recovering from this. CTA of the neck is consistent with MRA of the neck, which shows about 60% stenosis, right internal carotid artery and some degree of left-sided stenosis, but does not seem to be hemodynamically significant. The current dictum is to consider for surgery any patient with 70 or more percent stenosis of the internal carotid artery if asymptomatic. On the other hand, if patient is symptomatic, then degree of carotid artery may be less, and I have seen patients with 40% and 50% stenosis be symptomatic, which is dependent on the quality of the plaque. If the patient has a bulky plaque which is usually cheesy or undermined and start sloughing off pieces, then patient will have embolic phenomena and resulting strokes. In this particular situation, this patient clearly has bulky plaque in the right internal carotid artery stenosis. Surgery is an appropriate option. I will let the patient cool down for a few days and go ahead with the right carotid endarterectomy Friday. In the meantime patient is be being worked up by cardiology and have spoken to Dr. Davis. Depending on the nuclear scan and suspicion of ischemic changes patient may need further cardiac workup and possible intervention prior to carotid surgery but for the time being she is tentatively on schedule for Friday and this then may change 09/06/2018 Patient is neurologically unchanged she is awake alert and oriented slight weakness in the left hand and left arm Discussed with Dr. Davis and pending the outcome of stress test patient is tentatively scheduled for right carotid endarterectomy tomorrow She is to remain on Plavix throughout We will reassess tomorrow 09/07/2018 Patient post cardiac cath and balloon angioplasty. Will allow patient to "cool down"for about a month and then proceed with PRAVEEN endarterectomy on elective basis. Patient will remain on Plavix/ASA throughout. Objective Vital Signs / I&O: Vital Signs 09/06/18 20:00 09/06/18 20:30 09/07/18 00:00 Temperature 97.5 F L 98 F Pulse Rate 81 85 74 Respiratory Rate 18 18 Blood Pressure 177/80 H 170/84 H Pulse Oximetry 95 96 09/07/18 00:30 09/07/18 01:03 09/07/18 02:55 Temperature Pulse Rate 67 Respiratory Rate 18 18 Blood Pressure Pulse Oximetry 09/07/18 04:00 09/07/18 04:30 09/07/18 08:17 Temperature 97.9 F Pulse Rate 68 78 Respiratory Rate 18 Blood Pressure 151/62 H Pulse Oximetry 95 94 L 09/07/18 16:01 09/07/18 16:24 Temperature 98.1 F Pulse Rate 78 73 Respiratory Rate 18 Blood Pressure 175/90 H Pulse Oximetry 95 Intake & Output 09/06/18 09/07/18 09/07/18 18:59 06:59 18:59 Intake Total 1000 / 1000 Balance 1000 / 1000 Weight 81.5 kg Intake: IV 1000 / 1000 NS Inj 1,000 ML @ 100 mls/hr IV 1000 / 1000 .CONT .Q10H [facility] Rx#:[id number] Other: # Voids 1 Date of Last Bowel Movement 09/05/18 09/06/18 Impressions Myocardial Perfusion Scan Nuc Med 09/06/18 00:00 CONCLUSION: Suspected area of matched decreased perfusion at the septum especially the upper septum. There does appear to be possible mild ischemia at the inferior apical and mid ventricle septum.
--- NOTE | 2018-09-07 21:43 | ECHRPT ---
Indication: CEREBRAL EMBOLISM CONCLUSIONS Normal left ventricular size and wall thickness. The left ventricular systolic function is normal wi th an estimated ejection fraction in the range of 60-65%.No regional wall motion abnormalities are present . Normal left atrial appendage size with no evidence of thrombus formation. Right to left atrial level shunt is observed with agitated saline contrast administration suggesting the presence of a patent foramen ovale. Normal valves. BP: / HR: Rhythm: Technical Quality: Medications Complications There were no complications prior to, during or in recovery from the transesophag eal echocardiogram.. Proc. Components FINDINGS LEFT VENTRICLE Normal left ventricular size and wall thickness. The left ventricular systolic function is normal wi th an estimated ejection fraction in the range of 60-65%.No regional wall motion abnormalities are present . RIGHT VENTRICLE Normal right ventricular size and systolic function. LEFT ATRIUM The left atrial size is normal. RIGHT ATRIUM The right atrial size is normal. ATRIAL APPENDAGES Normal left atrial appendage size with no evidence of thrombus formation. ATRIAL SEPTUM Right to left atrial level shunt is observed with agitated saline contrast administration suggesting the presence of a patent foramen ovale. AORTA The aortic root and proximal ascending aorta are normal in size on limited imaging. MITRAL VALVE Structurally normal mitral valve. No mitral valve stenosis or regurgitation. AORTIC VALVE Trileaflet aortic valve. No aortic valve stenosis or regurgitation. TRICUSPID VALVE Structurally normal tricuspid valve. No tricuspid valve stenosis or regurgitation. VESSELS The inferior vena cava is normal in size. PULMONARY VALVE The pulmonary valve is not well visualized. PERICADIUM No pericardial effusion. Roman Davis MD (Electronically Signed) Final Date:07 September 2018 21:42
[2018-09-08] MEDS: Heparin - SQ 10,000 UNITS/ML Vial SQ SCH ×2 (03:12→11:30)
[2018-09-08 03:54] VITALS: RESP 16; O2SAT 97
[2018-09-08 06:56] LABS: Baso # (Auto) 0.1 th/mm3 (0.0-0.2); Baso % (Auto) 0.5 % (0.0-2.0); Eos # (Auto) 0.2 th/mm3 (0.0-0.4); Eos % (Auto) 1.9 % (0.0-4.0); Hematocrit 41.8 % (35.0-46.0); Hemoglobin 13.9 gm/dL (11.6-15.3); Lymph # (Auto) 2.6 th/mm3 (1.0-4.8); Lymph % (Auto) 23.6 % (9.0-44.0); Mean Corpuscular HGB Conc 33.3 % (32.0-36.0); Mean Corpuscular Hemoglobin 30.1 pg (27.0-34.0); Mean Corpuscular Volume 90.4 fL (80.0-100.0); Mean Platelet Volume 8.9 fL (7.0-11.0); Mono # (Auto) 0.8 th/mm3 (0.0-0.9); Mono % (Auto) 7.3 % (0.0-8.0); Neut # (Auto) 7.4 th/mm3 (1.8-7.7); Neut % (Auto) 66.7 % (16.0-70.0); Platelet Count 225 th/mm3 (150-450); Red Blood Count 4.63 mil/mm3 (4.00-5.30); Red Cell Distribution Width 13.2 % (11.6-17.2); White Blood Count 11.1 th/mm3 (4.0-11.0)
[2018-09-08 07:10] LABS: Calcium 8.6 mg/dL (8.5-10.1); Carbon Dioxide 22.7 meq/L (21.0-32.0); Potassium 3.4 meq/L (3.5-5.1)
--- NOTE | 2018-09-08 07:45 | P.DCO ---
- Physical Therapy Order: Evaluate and treat, Improve ambulation, Strength and gait training - Occupational Therapy Order: Improve ADL, Gross motor coordination, Fine motor coordination - Home Health Nursing Order: Medical education, Signs/symptoms of disease process, Nursing assessment with vital signs - Child Care Development Specialist Order: To evaluate: Living conditions/environment, Support services - Certification I have seen patient Pia Diamond on 09/08/18. My clinical findings support the need for the requested home health care services because: Deconditioned with increased weakness, Need for psychosocial assistance I certify that my clinical findings support that this patient is homebound because:
--- NOTE | 2018-09-08 08:07 | P.PNCA ---
Subjective Interval history: No CP, dyspnea, wrist pain, dizziness. Medications and Allergies Active Medications: Active Medications Acetaminophen (Tylenol) 650 mg PO Q6H PRN PRN Reason: Fever >101f Last Admin: 09/04/18 03:00 Dose: 650 mg Al Hydroxide/Mg Hydroxide (Milk Of Raudel De La Rosa) 30 ml PO Q12H PRN PRN Reason: Mild Constipation Albuterol (Albuterol Neb (Prn)) 2.5 mg NEB Q2HR NEB PRN PRN Reason: SHORTNESS OF BREATH/WHEEZING Aspirin (Aspirin) 325 mg PO DAILY [facility] Last Admin: 09/07/18 11:43 Dose: 325 mg Atorvastatin Calcium (Lipitor) 80 mg PO HS [facility] Last Admin: 09/07/18 21:22 Dose: 80 mg Bisacodyl (Dulcolax Supp) 10 mg RECTAL DAILY PRN PRN Reason: SEVERE CONSITIPATION Clopidogrel Bisulfate (Plavix) 75 mg PO DAILY [facility] Last Admin: 09/07/18 11:43 Dose: 75 mg Diphenhydramine HCl (Benadryl) 50 mg PO MEETING PLANNER [facility] Stop: 09/10/18 21:44 Fentanyl Citrate (Fentanyl Inj) 50 mcg IV.PUSH [employer] PL[employer] [facility] Stop: 09/10/18 21:44 Heparin Sodium (Porcine) (Heparin Inj) 5,000 units SQ Q8H [facility] Last Admin: 09/08/18 03:12 Dose: 5,000 units Nicardipine HCl 25 mg/ Sodium (Chloride) 250 mls @ 25 mls/hr IV.CONT TITRATE PRN; Protocol PRN Reason: Per Protocol Acetaminophen (Ofirmev Inj) 650 mg in 65 mls @ 400 mls/hr IV.SIG Q6H PRN PRN Reason: fever, pain 1-10 Last Infusion: 09/06/18 05:36 Dose: Infused Sodium Chloride (Ns Inj) 1,000 mls @ 100 mls/hr IV.CONT .Q10H [facility] Last Admin: 09/07/18 23:34 Dose: Not Given Lactated Ringer's (Lr 1000 Ml Inj) 1,000 mls @ 30 mls/hr IV.SIG .Q24H [facility] Stop: 09/08/18 12:14 Last Admin: 09/07/18 08:00 Dose: 30 mls/hr Sodium Chloride (Ns Inj) 500 mls @ 30 mls/hr IV.SIG .Q10H [facility] Last Admin: 09/07/18 15:39 Dose: Not Given Labetalol HCl (Trandate Inj) 10 mg IV.PUSH Q1H PRN PRN Reason: Acute Pain Last Admin: 09/03/18 23:32 Dose: 10 mg Lactulose (Lactulose Liq) 30 ml PO DAILY PRN PRN Reason: SEVERE CONSITIPATION Lisinopril (Prinivil) 20 mg PO DAILY [facility] Last Admin: 09/07/18 11:44 Dose: 20 mg Metoprolol Tartrate (Lopressor) 50 mg PO BID [facility] Last Admin: 09/07/18 21:22 Dose: 50 mg Midazolam HCl (Versed Inj) 1 mg IV.PUSH [employer] [facility] Stop: 09/10/18 21:44 Ondansetron HCl (Zofran Inj) 4 mg IV.PUSH Q6H PRN PRN Reason: NAUSEA Last Admin: 09/06/18 17:08 Dose: 4 mg Pantoprazole Sodium (Protonix) 40 mg PO DAILY [facility] Last Admin: 09/07/18 11:43 Dose: 40 mg Prochlorperazine Edisylate (Compazine Inj) 5 mg IV.PUSH Q6H PRN PRN Reason: BREAKTHROUGH NAUSEA Last Admin: 09/04/18 04:01 Dose: 5 mg Sennosides (Senokot) 17.2 mg PO Q12H PRN PRN Reason: Moderate Constipation Sertraline HCl (Zoloft) 100 mg PO DAILY [facility] Last Admin: 09/07/18 11:43 Dose: 100 mg Sodium Chloride (Ns Flush) 2 ml IV.FLUSH BID [facility] Last Admin: 09/07/18 22:41 Dose: Not Given Sodium Chloride (Ns Flush) 2 ml IV.FLUSH PRN PRN PRN Reason: FLUSH AFTER USING IV ACCESS Allergies Allergy/AdvReac Type Severity Reaction Status Date / Time codeine AdvReac Mild Nausea Verified 09/02/18 02:25 vomiting Home Medications Medication Instructions Recorded Confirmed Type aspirin 325 mg PO DAILY 09/02/18 09/02/18 History lisinopril 5 mg PO DAILY 09/02/18 09/02/18 History metoprolol tartrate 50 mg PO BID 09/02/18 09/02/18 History nitroglycerin [Nitrostat] 0.4 mg SUBLINGUAL Q5-15M PRN 09/02/18 09/02/18 History omega 9-dal-hvt-fish oil [Fish Oil] 1,000 mg PO BID 09/02/18 09/02/18 History pravastatin 40 mg PO DAILY 09/02/18 09/02/18 History sertraline [Zoloft] 100 mg PO DAILY 09/02/18 09/02/18 History Physical Exam Vital signs: Vital Signs 09/07/18 08:17 09/07/18 16:01 09/07/18 16:24 Temperature 98.1 F Pulse Rate 78 73 Respiratory Rate 18 Blood Pressure 175/90 H Pulse Oximetry 94 L 95 09/07/18 19:00 09/07/18 20:00 09/07/18 21:00 Temperature 98.4 F Pulse Rate 87 86 70 Respiratory Rate 16 Blood Pressure 158/78 H Pulse Oximetry 97 09/07/18 22:00 09/07/18 23:00 09/08/18 00:00 Temperature 98.4 F Pulse Rate 72 72 73 Respiratory Rate 16 20 Blood Pressure 136/61 Pulse Oximetry 95 09/08/18 01:00 09/08/18 02:00 09/08/18 03:00 Temperature 98.2 F Pulse Rate 74 84 68 Respiratory Rate 16 Blood Pressure 128/59 L Pulse Oximetry 97 09/08/18 04:00 09/08/18 05:00 09/08/18 06:00 Temperature Pulse Rate 70 70 92 H Respiratory Rate Blood Pressure Pulse Oximetry 09/08/18 07:00 Temperature 98.2 F Pulse Rate 77 Respiratory Rate 16 Blood Pressure 145/84 H Pulse Oximetry 97 Intake & Output 09/07/18 09/08/18 09/08/18 18:59 06:59 18:59 Intake Total 1480 / 1480 780 / 780 Output Total 250 / 250 Balance 1230 / 1230 780 / 780 Weight 84.4 kg Intake: IV 1000 / 1000 300 / 300 NS Inj 1,000 ML @ 100 mls/hr IV 1000 / 1000 .CONT .Q10H [facility] Rx#:[id number] Aggrastat Inj 12,500 mcg In 250 50 / 50 ml @ Per Protocol IV.CONT .Q0M [facility] Rx#:[id number] Oral 480 / 480 480 / 480 Output: Urine 250 / 250 Other: # Voids 1 2 - Constitutional no acute distress - Routine Neck Exam Absent: JVD - Routine Respiratory Exam Present: CTA bilaterally - Routine Cardiovascular Exam Present: RRR, S1, S2. Absent: murmur, gallop - Routine Abdominal Exam Present: soft, normoactive bowel sounds. Absent: tenderness, organomegaly - Routine Extremities Exam Absent: cyanosis, clubbing, edema Comments: Right radial arteriotomy site stable. No hematoma. Results 09/08/18 05:44 09/08/18 05:44 CBC 09/08/18 Range/Units 05:44 WBC 11.1 H (4.0-11.0) th/mm3 RBC 4.63 (4.00-5.30) mil/mm3 Hgb 13.9 (11.6-15.3) gm/dL Hct 41.8 (35.0-46.0) % Plt Count 225 (150-450) th/mm3 Neut # (Auto) 7.4 (1.8-7.7) th/mm3 Lymph # (Auto) 2.6 (1.0-4.8) th/mm3 [place] # (Auto) 0.8 (0.0-0.9) th/mm3 Eos # (Auto) 0.2 (0.0-0.4) th/mm3 Baso # (Auto) 0.1 (0.0-0.2) th/mm3 Comprehensive Metabolic Panel 09/08/18 Range/Units 05:44 Sodium 143 (136-145) meq/L Potassium 3.4 L (3.5-5.1) meq/L Chloride 107 (98-107) meq/L Carbon Dioxide 22.7 (21.0-32.0) meq/L BUN 14 (7-18) mg/dL Creatinine 0.96 (0.50-1.00) mg/dL Calcium 8.6 (8.5-10.1) mg/dL Intake and Output 09/07/18 09/08/18 09/08/18 22:59 06:59 14:59 Intake Total 730 / 730 530 / 530 Output Total 250 / 250 Balance 480 / 480 530 / 530 Intake: IV 250 / 250 50 / 50 Aggrastat Inj 12,500 mcg In 250 50 / 50 ml @ Per Protocol IV.CONT .Q0M [facility] Rx#:[id number] Oral 480 / 480 480 / 480 Output: Urine 250 / 250 Other: # Voids 1 2 Weight 84.4 kg - Imaging and Cardiology Imaging: Impressions Myocardial Perfusion Scan Nuc Med 09/06/18 00:00 CONCLUSION: Suspected area of matched decreased perfusion at the septum especially the upper septum. There does appear to be possible mild ischemia at the inferior apical and mid ventricle septum. Assessment and Plan - Assessment (1) Coronary artery disease Code(s): I25.10 - Atherosclerotic heart disease of jamul coronary artery without angina pectoris Status: Chronic Plan: Stable s/p stent of obtuse marginal yesterday. No other high grade CAD seen and EF 65%. Continue beta adia, aspirin, Plavix, GIFTY-I. OK for discharge from cardiac standpoint. Patient also cleared for carotid surgery. (2) Acute cerebrovascular accident (CVA) Code(s): I63.9 - Cerebral infarction, unspecified Status: Acute Plan: Stable overnight. SANKET unremarkable except probable patent foramen ovale. Recommend daily aspirin. (3) Dyslipidemia Code(s): E78.5 - Hyperlipidemia, unspecified Status: Chronic Plan: Very suboptimal lipid profile in light of her CVA and history of CAD. Recommend continue atorvastatin, recheck lipid profile in 6 weeks. (4) Hypertension Code(s): I10 - Essential (primary) hypertension Status: Chronic Plan: Better BP's. Continue same. - Plan Code Status: full code Discussed Condition With: patient (1) Coronary artery disease Qualifiers: Coronary Disease-Associated Artery/Lesion type: jamul artery [place] vs. transplanted heart: jamul heart Associated angina: with unstable angina Qualified Code(s): I25.110 - Atherosclerotic heart disease of jamul coronary artery with unstable angina pectoris (4) Hypertension Qualifiers: Hypertension type: essential hypertension Qualified Code(s): I10 - Essential (primary) hypertension
--- NOTE | 2018-09-08 08:57 | P.PNNEU ---
Subjective Subjective Comments: No cp, no dyspnea, no gax[place], no focal weakness, no vision loss Active Medications: Active Medications Acetaminophen (Tylenol) 650 mg PO Q6H PRN PRN Reason: Fever >101f Last Admin: 09/04/18 03:00 Dose: 650 mg Al Hydroxide/Mg Hydroxide (Milk Of Magndev Liq) 30 ml PO Q12H PRN PRN Reason: Mild Constipation Albuterol (Albuterol Neb (Prn)) 2.5 mg NEB Q2HR NEB PRN PRN Reason: SHORTNESS OF BREATH/WHEEZING Aspirin (Aspirin) 325 mg PO DAILY [facility] Last Admin: 09/07/18 11:43 Dose: 325 mg Atorvastatin Calcium (Lipitor) 80 mg PO HS [facility] Last Admin: 09/07/18 21:22 Dose: 80 mg Bisacodyl (Dulcolax Supp) 10 mg RECTAL DAILY PRN PRN Reason: SEVERE CONSITIPATION Clopidogrel Bisulfate (Plavix) 75 mg PO DAILY [facility] Last Admin: 09/07/18 11:43 Dose: 75 mg Diphenhydramine HCl (Benadryl) 50 mg PO [employer]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 [facility] Stop: 09/10/18 21:44 Fentanyl Citrate (Fentanyl Inj) 50 mcg IV.PUSH [employer]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 [facility] Stop: 09/10/18 21:44 Heparin Sodium (Porcine) (Heparin Inj) 5,000 units SQ Q8H [facility] Last Admin: 09/08/18 03:12 Dose: 5,000 units Nicardipine HCl 25 mg/ Sodium (Chloride) 250 mls @ 25 mls/hr IV.CONT TITRATE PRN; Protocol PRN Reason: Per Protocol Acetaminophen (Ofirmev Inj) 650 mg in 65 mls @ 400 mls/hr IV.SIG Q6H PRN PRN Reason: fever, pain 1-10 Last Infusion: 09/06/18 05:36 Dose: Infused Sodium Chloride (Ns Inj) 1,000 mls @ 100 mls/hr IV.CONT .Q10H [facility] Last Admin: 09/07/18 23:34 Dose: Not Given Lactated Ringer's (Lr 1000 Ml Inj) 1,000 mls @ 30 mls/hr IV.SIG .Q24H [facility] Stop: 09/08/18 12:14 Last Admin: 09/07/18 08:00 Dose: 30 mls/hr Sodium Chloride (Ns Inj) 500 mls @ 30 mls/hr IV.SIG .Q10H [facility] Last Admin: 09/07/18 15:39 Dose: Not Given Labetalol HCl (Trandate Inj) 10 mg IV.PUSH Q1H PRN PRN Reason: Acute Pain Last Admin: 09/03/18 23:32 Dose: 10 mg Lactulose (Lactulose Liq) 30 ml PO DAILY PRN PRN Reason: SEVERE CONSITIPATION Lisinopril (Prinivil) 20 mg PO DAILY [facility] Last Admin: 09/07/18 11:44 Dose: 20 mg Metoprolol Tartrate (Lopressor) 50 mg PO BID [facility] Last Admin: 09/07/18 21:22 Dose: 50 mg Midazolam HCl (Versed Inj) 1 mg IV.PUSH [employer]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 [facility] Stop: 09/10/18 21:44 Ondansetron HCl (Zofran Inj) 4 mg IV.PUSH Q6H PRN PRN Reason: NAUSEA Last Admin: 09/06/18 17:08 Dose: 4 mg Pantoprazole Sodium (Protonix) 40 mg PO DAILY [facility] Last Admin: 09/07/18 11:43 Dose: 40 mg Prochlorperazine Edisylate (Compazine Inj) 5 mg IV.PUSH Q6H PRN PRN Reason: BREAKTHROUGH NAUSEA Last Admin: 09/04/18 04:01 Dose: 5 mg Sennosides (Senokot) 17.2 mg PO Q12H PRN PRN Reason: Moderate Constipation Sertraline HCl (Zoloft) 100 mg PO DAILY [facility] Last Admin: 09/07/18 11:43 Dose: 100 mg Sodium Chloride (Ns Flush) 2 ml IV.FLUSH BID [facility] Last Admin: 09/07/18 22:41 Dose: Not Given Sodium Chloride (Ns Flush) 2 ml IV.FLUSH PRN PRN PRN Reason: FLUSH AFTER USING IV ACCESS Allergies/Adverse Reactions: Allergies Allergy/AdvReac Type Severity Reaction Status Date / Time codeine AdvReac Mild Nausea Verified 09/02/18 02:25 vomiting Review of Systems All other systems reviewed negative except as stated in HPI Physical Exam Vital signs: Vital Signs 09/07/18 16:01 09/07/18 16:24 09/07/18 19:00 Temperature 98.1 F 98.4 F Pulse Rate 78 73 87 Respiratory Rate 18 16 Blood Pressure 175/90 H 158/78 H Pulse Oximetry 95 97 09/07/18 20:00 09/07/18 21:00 09/07/18 22:00 Temperature Pulse Rate 86 70 72 Respiratory Rate Blood Pressure Pulse Oximetry 09/07/18 23:00 09/08/18 00:00 09/08/18 01:00 Temperature 98.4 F Pulse Rate 72 73 74 Respiratory Rate 16 20 Blood Pressure 136/61 Pulse Oximetry 95 09/08/18 02:00 09/08/18 03:00 09/08/18 04:00 Temperature 98.2 F Pulse Rate 84 68 70 Respiratory Rate 16 Blood Pressure 128/59 L Pulse Oximetry 97 09/08/18 05:00 09/08/18 06:00 09/08/18 07:00 Temperature 98.2 F Pulse Rate 70 92 H 77 Respiratory Rate 16 Blood Pressure 145/84 H Pulse Oximetry 97 Intake & Output 09/07/18 09/08/18 09/08/18 18:59 06:59 18:59 Intake Total 1480 / 1480 780 / 780 Output Total 250 / 250 Balance 1230 / 1230 780 / 780 Weight 84.4 kg Intake: IV 1000 / 1000 300 / 300 NS Inj 1,000 ML @ 100 mls/hr IV 1000 / 1000 .CONT .Q10H [facility] Rx#:[id number] Aggrastat Inj 12,500 mcg In 250 50 / 50 ml @ Per Protocol IV.CONT .Q0M [facility] Rx#:[id number] Oral 480 / 480 480 / 480 Output: Urine 250 / 250 Other: # Voids 1 2 Date of Last Bowel Movement 09/08/18 Narrative: Awake alert oriented x3 no aphasia speech clear, minimally reduced left nasolabial fold no pronator drift able raise all 4 extremity gravity left side 5 - out of 5. Mild left upper extremity dystaxia. NIH stroke scale score #2 - Constitutional no acute distress - Routine HEENT Exam Head: Present: normocephalic Objective Laboratory Results - last 24 hr 09/08/18 09/08/18 05:44 05:44 WBC 11.1 H RBC 4.63 Hgb 13.9 Hct 41.8 MCV 90.4 MCH 30.1 MCHC 33.3 RDW 13.2 Plt Count 225 MPV 8.9 Neut % (Auto) 66.7 Lymph % (Auto) 23.6 [place] % (Auto) 7.3 Eos % (Auto) 1.9 Baso % (Auto) 0.5 Neut # (Auto) 7.4 Lymph # (Auto) 2.6 [place] # (Auto) 0.8 Eos # (Auto) 0.2 Baso # (Auto) 0.1 WBC Differential . Differential Comment Auto diff final Sodium 143 Potassium 3.4 L Chloride 107 Carbon Dioxide 22.7 Anion Gap 13 BUN 14 Creatinine 0.96 Estimated GFR 59 L Random Glucose 210 H Calcium 8.6 Total Creatine Kinase 48 Review/Management - Diagnosis (1) Acute lacunar stroke Code(s): I63.9 - Cerebral infarction, unspecified Status: Acute Current Visit: Yes (2) Hypertension Code(s): I10 - Essential (primary) hypertension Status: Chronic Current Visit: Yes (3) Coronary artery disease Code(s): I25.10 - Atherosclerotic heart disease of [place] coronary artery without angina pectoris Status: Chronic Current Visit: Yes (4) Dyslipidemia Code(s): E78.5 - Hyperlipidemia, unspecified Status: Chronic Current Visit: Yes - Review/Management Plan: 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 Noncompliance with medications recently CT brain carotids negative mri brain rt hemispheric strokes doing well nihss 2 Status post stent Recommendations Neuro stable. Doing well no further epigastric sensation after stent placement. Appreciate cardiology and vascular surgery Plans for right CEA (2) Hypertension Qualifiers: Hypertension type: essential hypertension Qualified Code(s): I10 - Essential (primary) hypertension (3) Coronary artery disease Qualifiers: Coronary Disease-Associated Artery/Lesion type: [place]q artery [place] vs. transplanted heart: [place]iiq heart Associated angina: with unstable angina Qualified Code(s): I25.110 - Atherosclerotic heart disease of al[place]iiq coronary artery with unstable angina pectoris
[2018-09-08] MEDS: Lisinopril 5 MG Tablet PO SCH (09:09)
[2018-09-08] MEDS: Sertraline 100 MG Tablet PO SCH (09:10)
[2018-09-08] MEDS: Metoprolol Tartrate 50 MG Tablet PO SCH (09:10)
[2018-09-08] MEDS: Aspirin 325 MG Tablet PO SCH (09:10)
[2018-09-08 11:28] VITALS: BP 141/76; TEMP 97.9
[2018-09-08] MEDS ORDERED: Potassium Chloride 25 MEQ Effervescent Tablet PO ONE (11:44)
--- NOTE | 2018-09-08 11:51 | P.PN ---
Subjective Interval history: no complians up and ambulating speech clear Physical Exam Vital signs: Vital Signs 09/07/18 16:01 09/07/18 16:24 09/07/18 19:00 Temperature 98.1 F 98.4 F Pulse Rate 78 73 87 Respiratory Rate 18 16 Blood Pressure 175/90 H 158/78 H Pulse Oximetry 95 97 09/07/18 20:00 09/07/18 21:00 09/07/18 22:00 Temperature Pulse Rate 86 70 72 Respiratory Rate Blood Pressure Pulse Oximetry 09/07/18 23:00 09/08/18 00:00 09/08/18 01:00 Temperature 98.4 F Pulse Rate 72 73 74 Respiratory Rate 16 20 Blood Pressure 136/61 Pulse Oximetry 95 09/08/18 02:00 09/08/18 03:00 09/08/18 04:00 Temperature 98.2 F Pulse Rate 84 68 70 Respiratory Rate 16 Blood Pressure 128/59 L Pulse Oximetry 97 09/08/18 05:00 09/08/18 06:00 09/08/18 07:00 Temperature 98.2 F Pulse Rate 70 92 H 77 Respiratory Rate 16 Blood Pressure 145/84 H Pulse Oximetry 97 09/08/18 08:00 09/08/18 09:00 09/08/18 10:00 Temperature Pulse Rate 84 71 82 Respiratory Rate Blood Pressure Pulse Oximetry 09/08/18 11:00 Temperature 97.9 F Pulse Rate 72 Respiratory Rate Blood Pressure 141/76 H Pulse Oximetry 97 Intake & Output 09/07/18 09/08/18 09/08/18 18:59 06:59 18:59 Intake Total 1480 / 1480 780 / 780 Output Total 250 / 250 Balance 1230 / 1230 780 / 780 Weight 84.4 kg Intake: IV 1000 / 1000 300 / 300 NS Inj 1,000 ML @ 100 mls/hr IV 1000 / 1000 .CONT .Q10H [facility] Rx#:[id number] Aggrastat Inj 12,500 mcg In 250 50 / 50 ml @ Per Protocol IV.CONT .Q0M [facility] Rx#:[id number] Oral 480 / 480 480 / 480 Output: Urine 250 / 250 Other: # Voids 1 2 Date of Last Bowel Movement 09/08/18 Narrative: awake and alert, speech clear anciteric mild shallow left nasoliabial fole tongue idline lungs-clear regular rhtyhma bdomen soft, nontendere xtrmeities- rightwrist- -some ecchymsoes, good range of motion, good pulses LE no edema gait steady gtossly no sensory deficits motot 5/5 Results - Labs CBC & Chem 7: 09/08/18 05:44 09/08/18 05:44 Laboratory Results - last 24 hr 09/08/18 09/08/18 05:44 05:44 WBC 11.1 H RBC 4.63 Hgb 13.9 Hct 41.8 MCV 90.4 MCH 30.1 MCHC 33.3 RDW 13.2 Plt Count 225 MPV 8.9 Neut % (Auto) 66.7 Lymph % (Auto) 23.6 [place] % (Auto) 7.3 Eos % (Auto) 1.9 Baso % (Auto) 0.5 Neut # (Auto) 7.4 Lymph # (Auto) 2.6 [place] # (Auto) 0.8 Eos # (Auto) 0.2 Baso # (Auto) 0.1 WBC Differential . Differential Comment Auto diff final Sodium 143 Potassium 3.4 L Chloride 107 Carbon Dioxide 22.7 Anion Gap 13 BUN 14 Creatinine 0.96 Estimated GFR 59 L Random Glucose 210 H Calcium 8.6 Total Creatine Kinase 48 - Procedures 09/07- cardiac cath with BMS of OM Assessment and Plan - Plan 63 years old right handed female Neuro/Psych: Acute CVA status post alteplase -left facial droop/tongue deviation, left upper extremity weakness Right frontoparietal occipital History of Depression CT brain revealed no acute intracranial findings CT angiogram revealed no large occlusions. No acute findings. CT angiogram of the neck revealed right carotid bulb stenosis 60%. Left carotid bulb stenosis 45-50%. Vertebrals patent. Received 7.3 mg of alteplase to ED bolus followed by 65.5 mg infusion MRI brain revealed right frontoparietal occipital infarcts Repeat CT brain 24 hours post alteplase infusion reveals no hemorrhage Goal keep systolic blood pressure less than 180, diastolic pressure less than 105. Post alteplase infusion PT/OT/ST evaluate and treat. 2D echocardiogram as below Dr. Kiran Resuming sertraline 100 mg daily. - Plan for eventual right-sided carotid endarterectomy. CV: CAD -S/P cardiac cath - 09/07- BMS placed on OM - troponin 1.26 on admission Hypertension Hyperlipidemia Patent foramen ovale on echo - cotninue on BB/ASA/GIFTY - Atorvastatin 80 mg hs -2D echocardiogram The left ventricular systolic function is normal with an estimated ejection fraction in the range of 60-65%. Normal left ventricular size. No regional wall motion abnormalities are present. Trace mitral valve regurgitation - Plan for eventual right-sided carotid endarterectomy by [facility] -Dr. Davis ff //Elevated total bilirubin = ff trend //Hyperglycemia = Likely secondary to stress. Hemoglobin A1c 5.5. No longer requiring any insulin. Discontinue insulin sliding scale. - patient states non diabetic- glucose readings good //Leukocytosis = Likely stress related. //Hypokalemia //Hypophosphatemia = Resolved PT/OT evaluate and treat //Prophylaxis -GI -pantoprazole -DVT -heparin subcu Discussed Condition With: Patient, nurse Discharge Planning: Plan for carotid endarterectomy eventually- OP ff up vascular cardiology, vascular surgery, neurology ff Physical therapy and Occupational Therapy following. HOme today
--- NOTE | 2018-09-08 12:05 | P.DS ---
Date of admission: 09/02/18 05:19 Primary care physician: No Primary Care Physician Brief History from admission: This is a 63-year-old female. Date of admission 09/02/2018. Past medical history includes depression, coronary disease with history of myocardial infarction, hypertension, hyperlipidemia. She presents originally to [facility] ED with a chief complaint of chest pain, nausea and vomiting. She received ondansetron in the ED. Initial troponin is less than 0.02. EKG revealed possible incomplete right bundle branch block otherwise unremarkable. At 330 this a.m., patient experienced left-sided facial droop and left-sided weakness and numbness. Stroke alert was called. CT brain revealed no acute intracranial findings. CT angiogram of the brain revealed no acute large occlusions. CT Angio of the neck revealed right carotid bulb 60%, left carotid bulb 45-50%. Vertebral is patent. Dr. Howell/neurology was consulted. Recommended alteplase 7.3 mg bolus followed by 65.5 mg with remaining hour which received. MRI brain planned for today. Repeat CT brain imaging in a.m. or earlier 09/03. On examination, tongue does deviate to the left. Slight facial droop and left. Subjective weakness with pronator drift on the left upper extremity with numbness. Decreased sensation to light touch and pinprick.. Strength appears to be 5 out of 5 in the right upper and lower and left lower extremity. DS: Medications - Discharge Medications Prescriptions: aspirin 325 mg PO DAILY 90 Days #90 tab atorvastatin 80 mg PO HS #30 tab clopidogrel [Plavix] 75 mg PO DAILY #30 tab lisinopril 20 mg PO DAILY 30 Days #120 tab metoprolol tartrate 50 mg PO BID #60 tab DS: Summary Hospital Course: 63 years old right handed female Neuro/Psych: Acute CVA status post alteplase -left facial droop/tongue deviation, left upper extremity weakness Right frontoparietal occipital History of Depression CT brain revealed no acute intracranial findings CT angiogram revealed no large occlusions. No acute findings. CT angiogram of the neck revealed right carotid bulb stenosis 60%. Left carotid bulb stenosis 45-50%. Vertebrals patent. Received 7.3 mg of alteplase to ED bolus followed by 65.5 mg infusion MRI brain revealed right frontoparietal occipital infarcts Repeat CT brain 24 hours post alteplase infusion reveals no hemorrhage Goal keep systolic blood pressure less than 180, diastolic pressure less than 105. Post alteplase infusion PT/OT/ST evaluate and treat. 2D echocardiogram as below Dr. Kiran Resuming sertraline 100 mg daily. - Plan for eventual right-sided carotid endarterectomy. CV: CAD -S/P cardiac cath - 09/07- BMS placed on OM - troponin 1.26 on admission Hypertension Hyperlipidemia Patent foramen ovale on echo - cotninue on BB/ASA/GIFTY - Atorvastatin 80 mg hs -2D echocardiogram The left ventricular systolic function is normal with an estimated ejection fraction in the range of 60-65%. Normal left ventricular size. No regional wall motion abnormalities are present. Trace mitral valve regurgitation - Plan for eventual right-sided carotid endarterectomy by [facility] -Dr. Davis ff //Elevated total bilirubin = ff trend //Hyperglycemia = Likely secondary to stress. Hemoglobin A1c 5.5. No longer requiring any insulin. Discontinue insulin sliding scale. - patient states non diabetic- glucose readings good //Leukocytosis = Likely stress related. //Hypokalemia //Hypophosphatemia = Resolved PT/OT evaluate and treat //Prophylaxis -GI -pantoprazole -DVT -heparin subcu Discussed Condition With: Patient, nurse Discharge Planning: Plan for carotid endarterectomy eventually- OP ff up vascular cardiology, vascular surgery, neurology ff Physical therapy and Occupational Therapy following. HOme today - Time Spent with Patient Total time spent providing and/or coordinating discharge services: Greater than 30 minutes - Quality: VTE Deep Vein Thrombosis/Pulmonary Embolism Present on Admission: No Exam Vital signs: Vital Signs 09/07/18 16:01 09/07/18 16:24 09/07/18 19:00 Temperature 98.1 F 98.4 F Pulse Rate 78 73 87 Respiratory Rate 18 16 Blood Pressure 175/90 H 158/78 H Pulse Oximetry 95 97 09/07/18 20:00 09/07/18 21:00 09/07/18 22:00 Temperature Pulse Rate 86 70 72 Respiratory Rate Blood Pressure Pulse Oximetry 09/07/18 23:00 09/08/18 00:00 09/08/18 01:00 Temperature 98.4 F Pulse Rate 72 73 74 Respiratory Rate 16 20 Blood Pressure 136/61 Pulse Oximetry 95 09/08/18 02:00 09/08/18 03:00 09/08/18 04:00 Temperature 98.2 F Pulse Rate 84 68 70 Respiratory Rate 16 Blood Pressure 128/59 L Pulse Oximetry 97 09/08/18 05:00 09/08/18 06:00 09/08/18 07:00 Temperature 98.2 F Pulse Rate 70 92 H 77 Respiratory Rate 16 Blood Pressure 145/84 H Pulse Oximetry 97 09/08/18 08:00 09/08/18 09:00 09/08/18 10:00 Temperature Pulse Rate 84 71 82 Respiratory Rate Blood Pressure Pulse Oximetry 09/08/18 11:00 Temperature 97.9 F Pulse Rate 72 Respiratory Rate Blood Pressure 141/76 H Pulse Oximetry 97 Intake & Output 09/07/18 09/08/18 09/08/18 18:59 06:59 18:59 Intake Total 1480 / 1480 780 / 780 Output Total 250 / 250 Balance 1230 / 1230 780 / 780 Weight 84.4 kg Intake: IV 1000 / 1000 300 / 300 NS Inj 1,000 ML @ 100 mls/hr IV 1000 / 1000 .CONT .Q10H [facility] Rx#:[id number] Aggrastat Inj 12,500 mcg In 250 50 / 50 ml @ Per Protocol IV.CONT .Q0M [facility] Rx#:[id number] Oral 480 / 480 480 / 480 Output: Urine 250 / 250 Other: # Voids 1 2 Date of Last Bowel Movement 09/08/18 Results Procedures completed during hospitalization: 09/07- cardiac cath with BMS of OM Labs on day of discharge: Labs from last 24 hours 09/08/18 09/08/18 05:44 05:44 WBC 11.1 H RBC 4.63 Hgb 13.9 Hct 41.8 MCV 90.4 MCH 30.1 MCHC 33.3 RDW 13.2 Plt Count 225 MPV 8.9 Neut % (Auto) 66.7 Lymph % (Auto) 23.6 [place] % (Auto) 7.3 Eos % (Auto) 1.9 Baso % (Auto) 0.5 Neut # (Auto) 7.4 Lymph # (Auto) 2.6 [place] # (Auto) 0.8 Eos # (Auto) 0.2 Baso # (Auto) 0.1 WBC Differential . Differential Comment Auto diff final Sodium 143 Potassium 3.4 L Chloride 107 Carbon Dioxide 22.7 Anion Gap 13 BUN 14 Creatinine 0.96 Estimated GFR 59 L Random Glucose 210 H Calcium 8.6 Total Creatine Kinase 48 - Impressions ITS Impressions Chest X-Ray 09/02/18 02:26 CONCLUSION: 1. No acute cardiopulmonary disease. Head CTA 09/02/18 03:40 CONCLUSION: 1. Unremarkable CTA examination of the head. Specifically, no evidence for large vessel occlusion. Neck CTA 09/02/18 03:40 CONCLUSION: 1. Eccentric mixed plaque in the right carotid bulb extending to the internal carotid origin with resultant 60% stenosis. 2. Circumferential calcified plaque extending from the left carotid bulb to the internal carotid origin with resultant 45-50% stenosis. 3. Patent vertebral arteries bilaterally. Head MRI 09/02/18 05:58 CONCLUSION: 1. Scattered signal abnormalities are noted throughout the right frontoparietal and right occipital lobe on the diffusion-weighted images suggestive of acute infarcts. 2. No acute hemorrhage, midline shift or extra-axial bleed is noted. Carotid Doppler Study 09/03/18 00:00 CONCLUSION: 1. Right Internal Carotid Artery: Mild atherosclerotic plaque without significant narrowing. Tortuous ECA. 2. Left Internal Carotid Artery: Mild atherosclerotic plaque without significant narrowing. Neck MRA 09/03/18 00:00 CONCLUSION: 1. 50-60% stenosis of the right ICA with 20-30% stenosis of the left ICA secondary to atherosclerotic plaque. 2. Patent vertebral arteries. Percent stenosis is calculated using the diameter of the stenotic region over the diameter of the normal distal internal carotid artery Head CT 09/03/18 04:06 CONCLUSION: 1. No acute intracranial abnormality. Specifically, no evidence for intercurrent hemorrhage. . Myocardial Perfusion Scan Nuc Med 09/06/18 00:00 CONCLUSION: Suspected area of matched decreased perfusion at the septum especially the upper septum. There does appear to be possible mild ischemia at the inferior apical and mid ventricle septum. Discharge Plan - Discharge Disposition Patient Disposition: 01 Discharge Home - Discharge Condition Condition: Stable - Discharge Order Discharge Orders: Discharge Order (Routine); Ordered 09/08/18 Ordered By: Andi Holt Cardiology Clear for Discharge (Routine); Ordered 09/08/18 Ordered By: Roman Davis - Physicians Team Primary Care Provider: Primary Care Physici,No Attending Provider: Andi Holt Other Providers: Alejandro Howell MD ; Jose Matthews MD ; Roman Davis MD
[2018-09-08 12:14] VITALS: PULSE 66
== END 2018-09-08 13:18 | disposition home or self-care (01) ==
LOC: NEPE 01:10 → NEDA 05:19 → N03 06:45 → N05 09-04 16:25 → HCIS 09-07 08:12
PROVIDERS: ADMIT Internal Medicine; ATTEND Internal Medicine

== ENCOUNTER 2018-10-13 13:42 | Inpatient (IN) ==
--- NOTE | 2018-10-13 14:24 | ED ---
HPI General Chief Complaint: Arrhythmia / Palpitations Stated Complaint: doc sent/cardiac Time Seen by Provider: 10/13/18 14:23 Source: patient Mode of arrival: ambulatory Limitations: no limitations History of Present Illness HPI narrative: Patient comes in complaining of left arm tingling, left face tingling, as well as tachycardia. Patient states that she had a CVA September 02, stated that vascular surgeon advised patient to come in to the emergency department today. Past medical history includes depression, coronary artery disease with [place], hypertension, hyperlipidemia, a CVA on September 02, status post TPA. CT angios showed right carotid 60% disease left carotid 45-50% disease Related Data Home Medications Medication Instructions Recorded Confirmed metoprolol tartrate 50 mg PO BID 09/02/18 10/13/18 sertraline [Zoloft] 100 mg PO DAILY 09/02/18 10/13/18 Previous Rx's Medication Instructions Recorded aspirin 325 mg PO DAILY 90 Days #90 tab 09/08/18 clopidogrel [Plavix] 75 mg PO DAILY #30 tab 09/08/18 lisinopril 20 mg PO DAILY 30 Days #120 tab 09/08/18 Allergies Allergy/AdvReac Type Severity Reaction Status Date / Time codeine AdvReac Mild Nausea Verified 10/13/18 13:53 vomiting Review of Systems ROS: all other systems reviewed are negative PMFSH History History Provided By: Patient Medical History Medical History Carotid artery disease (Acute) Depression (Acute) H/O coronary stenosis (Acute) HTN (hypertension) (Acute) Heart attack (Acute) Hyperlipidemia (Acute) Surgical History Surgical History H/O: hysterectomy (Acute) History of cholecystectomy (Acute) Family History Family History Grandparent Family history of myocardial infarction Social History Social History Substance History: No History of Abuse Second Hand Smoke Exposure: No Smoking Status: Former smoker Tobacco Type: Cigarettes How Often Do You Have a Drink Containing Alcohol: Never Recent Travel in [place] within the Last 8 Weeks: No Recent Out of Country Travel within the Last 8 Weeks: No Exam Narrative Exam Narrative: GENERAL: Well-nourished, well-developed patient in no apparent distress. SKIN: Warm and dry. HEAD: Atraumatic. Normocephalic. EYES: Pupils equal and round. No scleral icterus. No injection or drainage. ENT: No nasal bleeding or discharge. Mucous membranes pink and moist. NECK: Trachea midline. No JVD. CARDIOVASCULAR: Tachycardic rate regular rhythm. no rubs or gallops RESPIRATORY: No accessory muscle use. Clear to auscultation. Breath sounds equal bilaterally. GASTROINTESTINAL: Abdomen soft, non-tender, nondistended. No rebound or guarding MUSCULOSKELETAL: Extremities without clubbing, cyanosis, or edema. No obvious deformities. NEUROLOGICAL: Awake and alert. No obvious cranial nerve deficits. Motor grossly within normal limits. Five out of 5 muscle strength in the arms and legs. Normal speech. PSYCHIATRIC: Appropriate mood and affect; insight and judgment normal. Course Initial Documented Vital Signs Temperature 98.0 F 10/13/18 13:50 Pulse Rate 125 H 10/13/18 13:50 Respiratory Rate 21 10/13/18 13:50 Blood Pressure 143/89 H 10/13/18 13:50 Pulse Oximetry 95 10/13/18 13:50 Last Documented Vital Signs Temperature 97.7 F 10/14/18 04:00 Pulse Rate 67 10/14/18 04:00 Respiratory Rate 18 10/14/18 04:00 Blood Pressure 114/59 L 10/14/18 04:00 Pulse Oximetry 94 L 10/14/18 04:00 Medical Decision Making MDM Narrative Medical decision making narrative: dr Richards graciously met patient at bedside and advised to admit to his service and he will complete orders. Medical Screen Exam Complete: Yes Emergency Medical Condition: Yes Lab Data Result diagrams: 10/13/18 15:00 10/13/18 15:00 Lab Results 10/13/18 10/13/18 10/13/18 Range/Units 15:00 15:00 15:00 WBC 9.3 (4.0-11.0) th/mm3 RBC 5.04 (4.00-5.30) mil/mm3 Hgb 15.4 H (11.6-15.3) gm/dL Hct 45.6 (35.0-46.0) % MCV 90.4 (80.0-100.0) fL MCH 30.6 (27.0-34.0) pg MCHC 33.8 (32.0-36.0) % RDW 13.9 (11.6-17.2) % Plt Count 207 (150-450) th/mm3 MPV 8.5 (7.0-11.0) fL Prelim Diff (Auto) Slide review pending Neut % (Auto) 65.2 (16.0-70.0) % Lymph % (Auto) 23.7 (9.0-44.0) % [place] % (Auto) 8.3 H (0.0-8.0) % Eos % (Auto) 2.1 (0.0-4.0) % Baso % (Auto) 0.7 (0.0-2.0) % Neut # (Auto) 6.0 (1.8-7.7) th/mm3 Lymph # (Auto) 2.2 (1.0-4.8) th/mm3 [place] # (Auto) 0.8 (0.0-0.9) th/mm3 Eos # (Auto) 0.2 (0.0-0.4) th/mm3 Baso # (Auto) 0.1 (0.0-0.2) th/mm3 WBC Differential . Diff Scan Auto diff confirmed Differential Comment . PT 10.0 (9.8-11.6) sec INR 1.0 Ratio APTT 22.5 L (23.4-31.7) sec Sodium 140 (136-145) meq/L Potassium 4.8 (3.5-5.1) meq/L Chloride 108 H (98-107) meq/L Carbon Dioxide 23.6 (21.0-32.0) meq/L Anion Gap 8 (5-15) meq/L BUN 27 H (7-18) mg/dL Creatinine 1.03 H (0.50-1.00) mg/dL Estimated GFR 54 L (>89) mL/min Random Glucose 90 (74-106) mg/dL Calcium 9.0 (8.5-10.1) mg/dL Total Bilirubin 1.0 (0.2-1.0) mg/dL AST 24 (15-37) U/L ALT 22 (10-53) U/L Alkaline Phosphatase 107 (45-117) U/L Total Creatine Kinase 96 (26-192) U/L Troponin I Less than 0.02 L (0.02-0.05) ng/mL B-Natriuretic Peptide (0-100) pg/mL Total Protein 7.5 (6.4-8.2) g/dL Albumin 3.9 (3.4-5.0) g/dL Blood Type Antibody Screen MTS Gel Crossmatch 10/13/18 10/13/18 Range/Units 15:00 15:35 WBC (4.0-11.0) th/mm3 RBC (4.00-5.30) mil/mm3 Hgb (11.6-15.3) gm/dL Hct (35.0-46.0) % MCV (80.0-100.0) fL MCH (27.0-34.0) pg MCHC (32.0-36.0) % RDW (11.6-17.2) % Plt Count (150-450) th/mm3 MPV (7.0-11.0) fL Prelim Diff (Auto) Neut % (Auto) (16.0-70.0) % Lymph % (Auto) (9.0-44.0) % [place] % (Auto) (0.0-8.0) % Eos % (Auto) (0.0-4.0) % Baso % (Auto) (0.0-2.0) % Neut # (Auto) (1.8-7.7) th/mm3 Lymph # (Auto) (1.0-4.8) th/mm3 [place] # (Auto) (0.0-0.9) th/mm3 Eos # (Auto) (0.0-0.4) th/mm3 Baso # (Auto) (0.0-0.2) th/mm3 WBC Differential Diff Scan Differential Comment PT (9.8-11.6) sec INR Ratio APTT (23.4-31.7) sec Sodium (136-145) meq/L Potassium (3.5-5.1) meq/L Chloride (98-107) meq/L Carbon Dioxide (21.0-32.0) meq/L Anion Gap (5-15) meq/L BUN (7-18) mg/dL Creatinine (0.50-1.00) mg/dL Estimated GFR (>89) mL/min Random Glucose (74-106) mg/dL Calcium (8.5-10.1) mg/dL Total Bilirubin (0.2-1.0) mg/dL AST (15-37) U/L ALT (10-53) U/L Alkaline Phosphatase (45-117) U/L Total Creatine Kinase (26-192) U/L Troponin I (0.02-0.05) ng/mL B-Natriuretic Peptide 10 (0-100) pg/mL Total Protein (6.4-8.2) g/dL Albumin (3.4-5.0) g/dL Blood Type O Negative Antibody Screen Negative MTS Gel Crossmatch See Detail Imaging Data Radiologist's impression: Head CT 10/13/18 00:00 CONCLUSION: 1. No acute findings. No evidence of acute hemorrhage. . Chest X-Ray 10/13/18 14:24 CONCLUSION: Negative examination. Discharge Plan Discharge Disposition Patient Disposition: 30 Still Patient Discharge Condition Condition: Stable Discharge Details Diagnosis: Sinus tachycardia, Carotid artery stenosis, symptomatic Physicians Team ED Provider: Demetrio Henry Primary Care Provider: UNKNOWN, Attending Provider: Jose Matthews Other Providers: Yony Morales Discharge Interventions Interventions: ED Discharge Assessment Last Done: 10/13/18 15:35 Vital Signs Last Done: 10/13/18 15:35 Status ED Status: Left Department Discharge Information Discharge Date/Time: 10/13/18 15:35
[2018-10-13] MEDS ORDERED: Sod Chloride 0.9% Inj 1,000 ML IV.SIG ONE (14:39)
[2018-10-13] MEDS ORDERED: Post-op Orders (for Pharmacy) OTHER ONE (14:40)
[2018-10-13] MEDS ORDERED: Naloxone Inj 0.4 MG/ML Vial IV.PUSH PRN (14:40)
[2018-10-13] MEDS ORDERED: Bisacodyl 10 MG Supp RECTAL PRN (14:40)
--- NOTE | 2018-10-13 14:52 | XR ---
EXAM DATE: 10/13/2018 2:45 PM EST AGE/SEX: 63 years / Female INDICATIONS: Chest pain. CLINICAL DATA: This is the patient's initial encounter. Patient reports that signs and symptoms have been present for 1 day and indicates a pain score of 7/10. MEDICAL/SURGICAL HISTORY: Stroke. Hypertension. Depression. Coronary stenosis. Myocardial infar ction. Hyperlipidemia. . Hysterectomy. Cholecystectomy. COMPARISON: [facility] – [place], CHEST 1V SINGLE AP, 09/02/2018. . FINDINGS: A single AP view of the chest demonstrates the lungs to be symmetrically aerated without evidence of mass, infiltrate or effusion. The cardiomediastinal contours are unremarkable. Osseous structures a re intact. CONCLUSION: Negative examination. Electronically signed by: Jerman Espinal MD 10/13/2018 2:51 PM EST
[2018-10-13] MEDS ORDERED: Fluconazole 100 MG Tablet PO ONE (14:58)
--- NOTE | 2018-10-13 15:02 | P.PNVS ---
Subjective Subjective/Hospital Course: 10/13/2018 63-year-old female with right hemispheric stroke last month underwent TPA lysis and recovered very well At the time of admission patient underwent full workup and CTA of the carotids revealed 60-70% right internal carotid artery stenosis with a bulky plaque in an ulcerated area as well as about 40% left internal carotid artery stenosis Patient symptoms are consistent with a right hemispheric stroke resulting from the carotid artery stenosis plaque Patient was to come to my office this week however felt weak this morning and somewhat nauseated so we directed her to the emergency room. Patient now feels better and on physical exam has mild weakness of the left hand which is residual effect from the right hemispheric stroke last month Other than that patient is greatly improved Cardiac function has been evaluated last month where patient underwent echo of the heart as well as cardiac catheterization. Cardiac catheter revealed fixed lesions with stents and patient was cleared by Dr. Davis for surgery with understanding that she is a moderate risk of cardiac event and perioperative period. Patient is now being admitted will undergo CT of the head and barring any surprises all things equal she will be scheduled for right carotid endarterectomy tomorrow Will leave on Plavix throughout the perioperative period I explained the risks and benefits as well as potential complications to the patient Objective Vital Signs / I&O: Vital Signs 10/13/18 13:50 Temperature 98.0 F Pulse Rate 125 H Respiratory Rate 21 Blood Pressure 143/89 H Pulse Oximetry 95 Intake & Output 10/12/18 10/13/18 10/13/18 18:59 06:59 18:59 Weight 90.718 kg Impressions Chest X-Ray 10/13/18 14:24 CONCLUSION: Negative examination.
--- NOTE | 2018-10-13 15:11 | MH ---
cc: Jose Matthews MD DATE OF ADMISSION: 10/13/2018 REASON FOR ADMISSION: Right internal carotid artery stenosis, recent right-sided stroke. HISTORY OF PRESENT ILLNESS: This 63-year-old female was admitted about a month ago with signs of symptoms of right-sided stroke. The patient had a left-sided arm weakness. The head MRI confirmed at that time, a right frontoparietal and right occipital lobe acute ischemic infarct, no bleed. The patient had a CTA of the carotids, which reveals about 60-70% of the right internal carotid artery stenosis with a bulky plaque and by 50% left carotid artery stenosis. Based on this, patient's diagnosis was confirmed as well as the source of the same. The patient was supposed to see me in the office today; however, discussed her status with my nurse and stated that she did not feel well, was little weak, so I sent it through the emergency room. The patient is being admitted for further care. PAST MEDICAL HISTORY: Hypertension and coronary artery disease with a heart attack in the past. PAST SURGICAL HISTORY: Cholecystectomy and hysterectomy. MEDICATIONS: 1. Plavix. 2. Metoprolol. 3. Aspirin. SOCIAL HISTORY: The patient does not smoke or drink. PHYSICAL EXAMINATION: GENERAL: Reveals a pleasant 63-year-old female. HEENT: Normocephalic. No trauma to head. Pupils equal, reactive. Extraocular muscles intact. The patient did not have any episodes of amaurosis fugax or any other symptoms related to eye since the last admission. Extraocular muscles appeared to be intact. NECK: Bilateral carotid pulses and faint bilateral bruits. CHEST: Bilateral breath sounds. HEART: Regular rate and rhythm. ABDOMEN: Soft. Active bowel sounds. No rebound, no guarding, no masses. EXTREMITIES: Within normal limits. A good proximal and distal pulses. No vascular deficit. NEUROLOGIC: The patient is neurologically stable. CN2-12, normal. the patient is fully intact with slight weakness in the left hand, but no drift like she did at the initial admission, no lateralization. Deep tendon reflexes are normal bilateral. No pathologic reflexes. IMPRESSION: Patient with bilateral carotid stenosis significant on the right, which is symptomatic with a large plaque and previous stroke. The patient will be now admitted to undergo basic workup and be scheduled for a carotid endarterectomy. MD Chantal Park , 02:50 PM , 03:01 PM
[2018-10-13 15:21] LABS: Baso # (Auto) 0.1 th/mm3 (0.0-0.2); Baso % (Auto) 0.7 % (0.0-2.0); Eos # (Auto) 0.2 th/mm3 (0.0-0.4); Eos % (Auto) 2.1 % (0.0-4.0); Hematocrit 45.6 % (35.0-46.0); Hemoglobin 15.4 gm/dL (11.6-15.3); Lymph # (Auto) 2.2 th/mm3 (1.0-4.8); Lymph % (Auto) 23.7 % (9.0-44.0); Mean Corpuscular HGB Conc 33.8 % (32.0-36.0); Mean Corpuscular Hemoglobin 30.6 pg (27.0-34.0); Mean Corpuscular Volume 90.4 fL (80.0-100.0); Mean Platelet Volume 8.5 fL (7.0-11.0); Mono # (Auto) 0.8 th/mm3 (0.0-0.9); Mono % (Auto) 8.3 % (0.0-8.0); Neut % (Auto) 65.2 % (16.0-70.0); Platelet Count 207 th/mm3 (150-450); Red Blood Count 5.04 mil/mm3 (4.00-5.30); Red Cell Distribution Width 13.9 % (11.6-17.2); White Blood Count 9.3 th/mm3 (4.0-11.0)
[2018-10-13 15:32] LABS: Activated Partial Thrombo Time 22.5 sec (23.4-31.7)
[2018-10-13 15:49] LABS: Alanine Aminotransferase 22 U/L (10-53); Albumin 3.9 g/dL (3.4-5.0); Anion Gap 8 meq/L (5-15); Aspartate Aminotransferase 24 U/L (15-37); Blood Urea Nitrogen 27 mg/dL (7-18); Carbon Dioxide 23.6 meq/L (21.0-32.0); Chloride 108 meq/L (98-107); Glomerular Filtration Rate 54 mL/min (>89); Glucose,Random 90 mg/dL (74-106); Potassium 4.8 meq/L (3.5-5.1); Sodium 140 meq/L (136-145)
--- NOTE | 2018-10-13 15:50 | P.CON ---
History of Present Illness Consult date: 10/13/18 Requesting Physician: Jose Matthews Reason for Consult: Medical management Primary Care Provider: UNKNOWN Chief Complaint: Carotid stenosis History of Present Illness: This is a 63-year-old female with a history of recent right hemispheric stroke status post TPA lysis over a month ago. She fully recovered except for mild slurred speech and numbness of the left arm. She was found to have right carotid stenosis 60-70% and is scheduled for carotid endarterectomy tomorrow by Dr. Matthews who requested consultation to evaluate and manage multiple medical conditions. Patient admits to history of hypertension controlled on metoprolol and lisinopril. She also has coronary artery disease with recent abnormal stress test and underwent stenting of the obtuse marginal. She is maintained on aspirin, Plavix, Lipitor and metoprolol. She also has history of depression controlled on Zoloft. At this time she has no complaints except for residual slurred speech and numbness of the left arm. All other systems reviewed negative. Review of Systems All other systems reviewed negative except as stated in HPI PMFSH - History History Provided By: Patient - Medical History Medical History: Medical History (Last Reviewed 10/13/18 @ 15:43 by Harley Beltran MD) Carotid artery disease Depression H/O coronary stenosis HTN (hypertension) Heart attack Hyperlipidemia - Surgical History Surgical History: Surgical History (Last Reviewed 10/13/18 @ 15:43 by Harley Beltran MD) H/O: hysterectomy History of cholecystectomy - Family History Family History: Family History (Last Reviewed 10/13/18 @ 15:43 by Harley Beltran MD) Grandparent Family history of myocardial infarction - Social History I have reviewed the patient's Social History: Yes - Tobacco History Second Hand Smoke Exposure: No Smoking Status: Former smoker Tobacco Type: Cigarettes - Alcohol History How Often Do You Have a Drink Containing Alcohol: Never - Substance Use History Substance History: No History of Abuse - Travel History Recent Travel in the [place] Within the Last 8 Weeks: No Recent Travel Out of the Country Within the Last 8 Weeks: No Medications and Allergies Active Medications: Active Medications Al Hydroxide/Mg Hydroxide (Milk Of Magnesia Liq) 30 ml PO Q12H PRN PRN Reason: Mild Constipation Bisacodyl (Dulcolax Supp) 10 mg RECTAL DAILY PRN PRN Reason: SEVERE CONSITIPATION Clopidogrel Bisulfate (Plavix) 75 mg PO DAILY [facility] Last Admin: 10/13/18 15:07 Dose: 75 mg Famotidine (Pepcid) 20 mg PO BID [facility] Cefazolin Sodium 1,000 mg/ (Sodium Chloride) 100 mls @ 200 mls/hr IV.SIG [employer] [facility] Stop: 10/16/18 14:56 Lactulose (Lactulose Liq) 30 ml PO DAILY PRN PRN Reason: SEVERE CONSITIPATION Lisinopril (Prinivil) 20 mg PO DAILY [facility] Metoprolol Tartrate (Lopressor) 50 mg PO BID [facility] Naloxone HCl (Narcan Inj) 0.4 mg IV.PUSH UNSCH PRN PRN Reason: SEE LABEL COMMENTS Ondansetron HCl (Zofran Inj) 4 mg IV.PUSH Q6H PRN PRN Reason: NAUSEA OR VOMITING Senna/Docusate Sodium (Mona-Colace) 1 tab PO BID [facility] Sennosides (Senokot) 17.2 mg PO Q12H PRN PRN Reason: Moderate Constipation Sertraline HCl (Zoloft) 100 mg PO DAILY [facility] Sodium Chloride (Ns Flush) 2 ml IV.FLUSH UNSCH PRN PRN Reason: FLUSH AFTER USING IV ACCESS Allergies Allergy/AdvReac Type Severity Reaction Status Date / Time codeine AdvReac Mild Nausea Verified 10/13/18 13:53 vomiting Home Medications Medication Instructions Recorded Confirmed Type metoprolol tartrate 50 mg PO BID 09/02/18 10/13/18 History sertraline [Zoloft] 100 mg PO DAILY 09/02/18 10/13/18 History Physical Exam Vital signs: Vital Signs 10/13/18 13:50 Temperature 98.0 F Pulse Rate 125 H Respiratory Rate 21 Blood Pressure 143/89 H Pulse Oximetry 95 Intake & Output 10/12/18 10/13/18 10/13/18 18:59 06:59 18:59 Weight 90.718 kg Narrative: GENERAL: Well-developed, well-nourished in no distress SKIN: Warm and dry. HEAD: Atraumatic. Normocephalic. EYES: Pupils equal and round. No scleral icterus. No injection or drainage. ENT: No nasal bleeding or discharge. Mucous membranes pink and moist. NECK: Trachea midline. No JVD. CARDIOVASCULAR: Regular rate and rhythm. RESPIRATORY: No accessory muscle use. Clear to auscultation. Breath sounds equal bilaterally. GASTROINTESTINAL: Abdomen soft, non-tender, nondistended. MUSCULOSKELETAL: Extremities without clubbing, cyanosis, or edema. No obvious deformities. NEUROLOGICAL: Awake and alert. No obvious cranial nerve deficits. Motor grossly within normal limits. Five out of 5 muscle strength in the arms and legs. Mild slurred speech. PSYCHIATRIC: Appropriate mood and affect; insight and judgment normal. Results - Labs CBC & Chem 7: 10/13/18 15:00 10/13/18 15:00 Labs: Laboratory Results - last 24 hr 10/13/18 15:00 PT 10.0 INR 1.0 APTT 22.5 L - Imaging Impressions Chest X-Ray 10/13/18 14:24 CONCLUSION: Negative examination. Assessment and Plan - Plan This is a 63-year-old female with a history of recent right hemispheric stroke status post TPA lysis over a month ago. She has residual mild slurred speech and numbness of the left arm. She was found to have right carotid stenosis 60- 70% and is scheduled for carotid endarterectomy tomorrow by Dr. Matthews who requested consultation to evaluate and manage multiple medical conditions. Hypertension controlled on metoprolol and lisinopril. We will monitor and continue these meds Coronary artery disease with recent abnormal stress test and underwent stenting of the obtuse marginal. She is maintained on aspirin, Plavix, Lipitor and metoprolol which will be continued except aspirin. Depression controlled on Zoloft. We will continue Sinus tachycardia. EKG interpreted by me with sinus rhythm. Telemetry shows sinus rhythm Follow-up pending labs. Chest x-ray independently reviewed by me with no acute cardiopulmonary disease. DVT prophylaxis with SCD and early ambulation Discharge Planning: Per Vascular surgery
[2018-10-13 16:09] LABS: Alkaline Phosphatase 107 U/L (45-117); Total Protein 7.5 g/dL (6.4-8.2)
[2018-10-13 16:10] LABS: Creatine Kinase 96 U/L (26-192)
--- NOTE | 2018-10-13 19:05 | CT ---
EXAM DATE: 10/13/2018 6:46 PM EST AGE/SEX: 63 years / Female INDICATIONS: Recent stroke with TPA. CLINICAL DATA: This is the patient's initial encounter. Patient reports that signs and symptoms have been present for 1 day and indicates a pain score of 0/10. MEDICAL/SURGICAL HISTORY: Cardiovascular disease. Myocardial infarction. Hypertension. Hysterecto my. Cholecystectomy. RADIATION DOSE: 56.35 CTDI (mGy) COMPARISON: [facility] [place] HEAD W/O CONTRAST, 09/03/2018. . TECHNIQUE: CT of the head without contrast. Using automated exposure control and adjustment of the mA and/or kV according to patient size, radiation dose was kept as low as reasonably achievable to ob tain optimal diagnostic quality images. DICOM format image data is available electronically for revi ew and comparison. FINDINGS: Cerebrum: The ventricles are normal for age. No evidence of midline shift, mass lesion, hemorrhage or acute infarction. No extraaxial fluid collections are seen. Posterior Fossa: The cerebellum and brainstem are intact. The 4th ventricle is midline. The cerebe llopontine angle is unremarkable. Extracranial: The visualized portion of the orbits is intact. Skull: The calvaria is intact. No evidence of skull fracture. CONCLUSION: 1. No acute findings. No evidence of acute hemorrhage. . Electronically signed by: Robinson Vasquez MD 10/13/2018 7:04 PM EST
[2018-10-13] MEDS ORDERED: Potassium Phosphate 500 MG Soluble Tablet PO SCH (21:00)
[2018-10-13] MEDS: Famotidine 20 MG Tablet PO SCH (21:07)
[2018-10-13] MEDS: Metoprolol Tartrate 50 MG Tablet PO SCH (21:07)
[2018-10-13] MEDS: Senna/Docusate Sodium 8.6/50 MG Tablet PO SCH (21:07)
[2018-10-14] MEDS: Famotidine 20 MG Tablet PO SCH ×2 (08:27→22:26)
[2018-10-14] MEDS: Senna/Docusate Sodium 8.6/50 MG Tablet PO SCH ×2 (08:27→22:26)
[2018-10-14] MEDS: Sertraline 100 MG Tablet PO SCH (08:27)
[2018-10-14] MEDS: Metoprolol Tartrate 50 MG Tablet PO SCH ×2 (08:28→22:26)
[2018-10-14] MEDS: Lisinopril 5 MG Tablet PO SCH (08:28)
--- NOTE | 2018-10-14 08:58 | P.PNVS ---
Subjective Subjective/Hospital Course: 10/13/2018 63-year-old female with right hemispheric stroke last month underwent TPA lysis and recovered very well At the time of admission patient underwent full workup and CTA of the carotids revealed 60-70% right internal carotid artery stenosis with a bulky plaque in an ulcerated area as well as about 40% left internal carotid artery stenosis Patient symptoms are consistent with a right hemispheric stroke resulting from the carotid artery stenosis plaque Patient was to come to my office this week however felt weak this morning and somewhat nauseated so we directed her to the emergency room. Patient now feels better and on physical exam has mild weakness of the left hand which is residual effect from the right hemispheric stroke last month Other than that patient is greatly improved Cardiac function has been evaluated last month where patient underwent echo of the heart as well as cardiac catheterization. Cardiac catheter revealed fixed lesions with stents and patient was cleared by Dr. Davis for surgery with understanding that she is a moderate risk of cardiac event and perioperative period. Patient is now being admitted will undergo CT of the head and barring any surprises all things equal she will be scheduled for right carotid endarterectomy tomorrow Will leave on Plavix throughout the perioperative period I explained the risks and benefits as well as potential complications to the patient 10/14/2018 Patient is awake alert and oriented Repeat CT scan of the brain does not reveal any acute injuries recurrent strokes or hemorrhage Patient scheduled for right carotid endarterectomy today Objective Vital Signs / I&O: Vital Signs 10/13/18 13:50 10/13/18 14:24 10/13/18 14:40 Temperature 98.0 F 97.8 F Pulse Rate 125 H 99 H 100 H Respiratory Rate 21 16 Blood Pressure 143/89 H 138/84 Pulse Oximetry 95 99 98 10/13/18 15:35 10/13/18 20:00 10/14/18 00:00 Temperature 97.8 F 98.1 F 97.9 F Pulse Rate 96 H 76 78 Respiratory Rate 16 18 18 Blood Pressure 138/85 113/67 126/71 Pulse Oximetry 99 95 96 10/14/18 04:00 10/14/18 08:00 Temperature 97.7 F Pulse Rate 67 66 Respiratory Rate 18 Blood Pressure 114/59 L Pulse Oximetry 94 L Intake & Output 10/13/18 10/14/18 10/14/18 18:59 06:59 18:59 Intake Total 1000 / 1000 Balance 1000 / 1000 Weight 90.718 kg 90.8 kg Intake: IV 1000 / 1000 NS Inj 1,000 ML @ Wide Open IV. 1000 / 1000 SIG BOLUS ONE Rx#:[id number] Other: # Voids 2 Date of Last Bowel Movement 10/13/18 Laboratory Results - last 24 hr 10/13/18 10/13/18 10/13/18 15:00 15:00 15:00 WBC 9.3 RBC 5.04 Hgb 15.4 H Hct 45.6 MCV 90.4 MCH 30.6 MCHC 33.8 RDW 13.9 Plt Count 207 MPV 8.5 Prelim Diff (Auto) Slide review pending Neut % (Auto) 65.2 Lymph % (Auto) 23.7 [place] % (Auto) 8.3 H Eos % (Auto) 2.1 Baso % (Auto) 0.7 Neut # (Auto) 6.0 Lymph # (Auto) 2.2 [place] # (Auto) 0.8 Eos # (Auto) 0.2 Baso # (Auto) 0.1 WBC Differential . Diff Scan Auto diff confirmed Differential Comment . PT 10.0 INR 1.0 APTT 22.5 L Sodium 140 Potassium 4.8 Chloride 108 H Carbon Dioxide 23.6 Anion Gap 8 BUN 27 H Creatinine 1.03 H Estimated GFR 54 L Random Glucose 90 Calcium 9.0 Total Bilirubin 1.0 AST 24 ALT 22 Alkaline Phosphatase 107 Total Creatine Kinase 96 Troponin I Less than 0.02 L B-Natriuretic Peptide Total Protein 7.5 Albumin 3.9 Blood Type Antibody Screen MTS Gel Crossmatch 10/13/18 10/13/18 15:00 15:35 WBC RBC Hgb Hct MCV MCH MCHC RDW Plt Count MPV Prelim Diff (Auto) Neut % (Auto) Lymph % (Auto) [place] % (Auto) Eos % (Auto) Baso % (Auto) Neut # (Auto) Lymph # (Auto) [place] # (Auto) Eos # (Auto) Baso # (Auto) WBC Differential Diff Scan Differential Comment PT INR APTT Sodium Potassium Chloride Carbon Dioxide Anion Gap BUN Creatinine Estimated GFR Random Glucose Calcium Total Bilirubin AST ALT Alkaline Phosphatase Total Creatine Kinase Troponin I B-Natriuretic Peptide 10 Total Protein Albumin Blood Type O Negative Antibody Screen Negative MTS Gel Crossmatch See Detail Impressions Head CT 10/13/18 00:00 CONCLUSION: 1. No acute findings. No evidence of acute hemorrhage. . Chest X-Ray 10/13/18 14:24 CONCLUSION: Negative examination.
[2018-10-14] MEDS ORDERED: Metoprolol Tartrate 25 MG Tablet PO ONE (12:15)
[2018-10-14] MEDS ORDERED: Chlorhexidine Gluconate 2% 1 Pack (2 Cloths) TOPICAL ONE (12:15)
[2018-10-14] MEDS ORDERED: Sodium Chlor 0.9% Inj 500 ML IV.CONT ONE (12:15)
--- NOTE | 2018-10-14 12:37 | ECG ---
Date Performed: 10/13/2018 Time Performed: 15:23:28 PTAGE: 63 years EKG: Sinus rhythm MARKED LEFT AXIS DEVIATION INCOMPLETE RIGHT BUNDLE BRANCH BLOCK ABNORMAL ECG PREVIOUS TRACING : 09/04/2018 17.28 DOCTOR: Bob Muhammad Interpretating Date/Time 10/14/2018 12:35:40
[2018-10-14] MEDS ORDERED: Heparin 10,000 UNITS/10 ML Vial (for IV use) ONE (14:32)
[2018-10-14] MEDS ORDERED: Heparin - SQ 10,000 UNITS/ML Vial ONE (14:32)
[2018-10-14] MEDS ORDERED: Protamine Sulfate Inj 50 MG/5 ML Vial ONE (14:33)
[2018-10-14] MEDS ORDERED: Lidocaine 1% Inj 50 ML Vial ONE (14:33)
[2018-10-14] MEDS ORDERED: Sugammadex Inj 200 MG/2 ML Vial IV.PUSH ONE (14:45)
[2018-10-14] MEDS ORDERED: fentaNYL Citrate Inj 100 MCG/2 ML Ampul ONE ×2 (14:45→18:01)
[2018-10-14] MEDS ORDERED: Phenylephrine/NS 1000 MCG/10ML Syringe IV.PUSH ONE (14:55)
[2018-10-14] MEDS ORDERED: Labetalol HCl Inj 100 MG/20 ML Vial IV.CONT ONE (14:55)
[2018-10-14] MEDS ORDERED: Lidocaine PF 1% Inj 5 ML Syringe INFILTRATN ONE (14:55)
[2018-10-14] MEDS ORDERED: ceFAZolin 1 GM Premix Inj 2 GM/100 ML FROZ.PIGGY IV.SIG ONE (15:02)
[2018-10-14] MEDS ORDERED: *morphine SULFATE 10 MG/ML PERIprocedure ONLY ONE ×3 (17:51→19:18)
[2018-10-14] MEDS ORDERED: *Meperidine Inj 25 MG/ML Vial PERIprocedural Use ONLY ONE (18:02)
[2018-10-14] MEDS ORDERED: *Ondansetron Inj 4 MG/2 ML Vial PERIprocedural Use ONLY ONE (18:19)
[2018-10-14] MEDS ORDERED: *Promethazine Inj 25 MG/ML Vial PERIprocedural use ONLY ONE (18:44)
--- NOTE | 2018-10-14 19:03 | P.PNIM ---
Subjective Interval history: Patient seen this afternoon following procedure. sHe does report some nausea no vomiting. Physical Exam Vital signs: Vital Signs 10/13/18 20:00 10/14/18 00:00 10/14/18 04:00 Temperature 98.1 F 97.9 F 97.7 F Pulse Rate 76 78 67 Respiratory Rate 18 18 18 Blood Pressure 113/67 126/71 114/59 L Pulse Oximetry 95 96 94 L 10/14/18 08:00 10/14/18 12:00 10/14/18 17:50 Temperature 97.8 F 97.8 F 97.8 F Pulse Rate 75 75 98 H Respiratory Rate 18 18 20 Blood Pressure 150/70 H 150/70 H 141/71 H Pulse Oximetry 96 96 92 L 10/14/18 18:15 10/14/18 18:30 10/14/18 18:45 Temperature Pulse Rate 80 78 80 Respiratory Rate 20 20 20 Blood Pressure 138/60 128/59 L 154/70 H Pulse Oximetry 98 98 98 Intake & Output 10/13/18 10/14/18 10/14/18 18:59 06:59 18:59 Intake Total 1000 / 1000 1500 / 1500 Output Total 200 / 200 Balance 1000 / 1000 1300 / 1300 Weight 90.718 kg 90.8 kg Intake: IV 1000 / 1000 NS Inj 1,000 ML @ Wide Open IV. 1000 / 1000 SIG BOLUS ONE Rx#:[id number] Anesthesia Amount 1500 / 1500 Output: Estimated Blood Loss 200 / 200 Other: # Voids 2 Date of Last Bowel Movement 10/13/18 10/13/18 Narrative: GENERAL: Patient lying in PACU bed. Appears anxious. SKIN: Warm and dry. HEAD: Normocephalic. EYES: No scleral icterus. No injection or drainage. NECK: Supple, trachea midline. No JVD. Right-sided dressing intact with JEEVAN drain in place draining serosanguineous fluid. CARDIOVASCULAR: Regular rate and rhythm without murmurs, gallops, or rubs. RESPIRATORY: Breath sounds equal bilaterally. No accessory muscle use. GASTROINTESTINAL: Abdomen soft, non-tender, nondistended. MUSCULOSKELETAL: No cyanosis, or edema. BACK: Nontender without obvious deformity. No CVA tenderness. Results - Labs CBC & Chem 7: 10/13/18 15:00 10/13/18 15:00 - Imaging Impressions Head CT 10/13/18 00:00 CONCLUSION: 1. No acute findings. No evidence of acute hemorrhage. . Assessment and Plan - Plan This is a 63-year-old female with a history of recent right hemispheric stroke status post TPA lysis over a month ago. She has residual mild slurred speech and numbness of the left arm. She was found to have right carotid stenosis 60- 70% and is scheduled for carotid endarterectomy tomorrow by Dr. Matthews who requested consultation to evaluate and manage multiple medical conditions. //Hypertension controlled on metoprolol and lisinopril. We will monitor and continue these meds = 10/14. Systolic blood pressures in the 150s. Will order enalapril IV as needed. //Coronary artery disease with recent abnormal stress test and underwent stenting of the obtuse marginal. She is maintained on aspirin, Plavix, Lipitor and metoprolol which will be continued except aspirin. //Depression controlled on Zoloft. We will continue //Sinus tachycardia. Resolved. //Follow-up pending labs. Chest x-ray independently reviewed by me with no acute cardiopulmonary disease. = Slight decrease in kidney function. IV fluids intraoperatively. Follow-up labs in the morning. //DVT prophylaxis with SCD and early ambulation
[2018-10-14] MEDS ORDERED: Naloxone Inj 0.4 MG/ML Vial IV.PUSH PRN (19:16)
[2018-10-14] MEDS ORDERED: Bisacodyl 10 MG Supp RECTAL PRN (19:16)
[2018-10-14] MEDS ORDERED: Post-op Orders (for Pharmacy) OTHER ONE (19:16)
--- NOTE | 2018-10-14 23:11 | MP ---
cc: Jose Matthews MD DATE OF OPERATION: 10/14/2018 DATE OF SURGERY: 10/14/2018 PREOPERATIVE DIAGNOSIS: Right internal carotid artery stenosis and recent stroke. POSTOPERATIVE DIAGNOSIS: Stable. PROCEDURE: Right internal carotid artery endarterectomy, patch angioplasty. SURGEON: Dr. Matthews. ANESTHESIA: General. ESTIMATED BLOOD LOSS: 100 mL. DESCRIPTION OF PROCEDURE: The patient was prepped and draped in usual fashion, left breast that are clear. The mastoid incision was made and deepened down through the platysma to the level of the carotid sheath with a combined sharp and blunt dissection with a right angle and Metzenbaums. The common carotid, internal and external carotid arteries are isolated. Hypoglossal nerves carefully identified and preserved and then with Ryan an upper arm wrought iron internal retractor was placed. Umbilical tapes with Marito tourniquets were placed around The common, internal and external carotid arteries respectively loosely. The patient was given 5000 units of heparin and then vessels clamped. Internal carotid artery with a curved bulldog and a common carotid with an angled DeBakey. The vessel was opened longitudinally with Ordoñez scissors and Montrose shunt immediately inserted and blood flow reestablished. It is apparent that the patient has a huge plaque that extends from about an inch into the common internal carotid artery down into the common carotid artery and to the external carotid artery. This is probably more than 60% stenosed ,probably about 70-80. It is fairly tight. The plaque is now dissected in a medial plane using [place] dissector and then removed. Debris is removed with forceps, heparinized saline and cells. Intima in the internal carotid artery was checked. It seems to be pretty well adherent; however, 7-0 Prolene horizontal mattress stitches were placed at 3 and 9 o'clock. The bovine 5 mm patch is now selected and sewn with a running 5-0 Prolene. Prior to completion of the arterial repair, the Montrose shunt is removed, clamp reapplied and then repair completed. Blood flow is not reestablished in the usual order and fashion preventing embolization into internal carotid artery. The area was irrigated with copious amounts of saline. Meticulous hemostasis assured. Flow checked with Doppler and was brisk. A 7 flat JEEVAN placed. The patient was given 20 units of protamine and incision closed with 0 Vicryl in layers and 4-0 Monocryl. Dressing applied. The patient tolerated the procedure well. In the recovery room, the patient is neurologically intact as before to surgery with slight weakness of the left hand as before the surgery. MD LEIGHTON Park/leighton , 07:37 PM , 07:44 PM
[2018-10-15] MEDS: Morphine Inj 4 MG/ML Vial IV.PUSH PRN ×3 (05:46→16:18)
[2018-10-15 07:01] LABS: Baso % (Auto) 0.1 % (0.0-2.0); Hematocrit 41.5 % (35.0-46.0); Hemoglobin 14.1 gm/dL (11.6-15.3); Lymph # (Auto) 0.5 th/mm3 (1.0-4.8); Lymph % (Auto) 3.5 % (9.0-44.0); Mean Corpuscular HGB Conc 34.1 % (32.0-36.0); Mean Corpuscular Hemoglobin 31.1 pg (27.0-34.0); Mean Corpuscular Volume 91.1 fL (80.0-100.0); Mean Platelet Volume 8.7 fL (7.0-11.0); Mono # (Auto) 0.9 th/mm3 (0.0-0.9); Mono % (Auto) 5.7 % (0.0-8.0); Neut # (Auto) 14.2 th/mm3 (1.8-7.7); Neut % (Auto) 90.7 % (16.0-70.0); Platelet Count 223 th/mm3 (150-450); Red Blood Count 4.55 mil/mm3 (4.00-5.30); Red Cell Distribution Width 13.7 % (11.6-17.2); White Blood Count 15.7 th/mm3 (4.0-11.0)
[2018-10-15 07:44] LABS: Albumin 3.4 g/dL (3.4-5.0); Calcium 8.1 mg/dL (8.5-10.1); Carbon Dioxide 17.2 meq/L (21.0-32.0); Magnesium 2.3 mg/dL (1.5-2.5); Phosphorus 3.6 mg/dL (2.5-4.9); Potassium 4.6 meq/L (3.5-5.1)
[2018-10-15] MEDS: Senna/Docusate Sodium 8.6/50 MG Tablet PO SCH (09:33)
[2018-10-15] MEDS: Metoprolol Tartrate 50 MG Tablet PO SCH (09:33)
[2018-10-15] MEDS: Lisinopril 5 MG Tablet PO SCH (09:33)
[2018-10-15] MEDS: Sertraline 100 MG Tablet PO SCH (09:33)
[2018-10-15] MEDS: Famotidine 20 MG Tablet PO SCH (09:33)
--- NOTE | 2018-10-15 15:12 | P.PNVS ---
Subjective Subjective/Hospital Course: 10/13/2018 63-year-old female with right hemispheric stroke last month underwent TPA lysis and recovered very well At the time of admission patient underwent full workup and CTA of the carotids revealed 60-70% right internal carotid artery stenosis with a bulky plaque in an ulcerated area as well as about 40% left internal carotid artery stenosis Patient symptoms are consistent with a right hemispheric stroke resulting from the carotid artery stenosis plaque Patient was to come to my office this week however felt weak this morning and somewhat nauseated so we directed her to the emergency room. Patient now feels better and on physical exam has mild weakness of the left hand which is residual effect from the right hemispheric stroke last month Other than that patient is greatly improved Cardiac function has been evaluated last month where patient underwent echo of the heart as well as cardiac catheterization. Cardiac catheter revealed fixed lesions with stents and patient was cleared by Dr. Davis for surgery with understanding that she is a moderate risk of cardiac event and perioperative period. Patient is now being admitted will undergo CT of the head and barring any surprises all things equal she will be scheduled for right carotid endarterectomy tomorrow Will leave on Plavix throughout the perioperative period I explained the risks and benefits as well as potential complications to the patient 10/14/2018 Patient is awake alert and oriented Repeat CT scan of the brain does not reveal any acute injuries recurrent strokes or hemorrhage Patient scheduled for right carotid endarterectomy today 10/15/2018 Status post right carotid endarterectomy Awake alert oriented incision clean and dry DC JEEVAN DC patient today with follow-up in about 3-4 weeks in my office Objective Vital Signs / I&O: Vital Signs 10/14/18 17:50 10/14/18 18:15 10/14/18 18:30 Temperature 97.8 F Pulse Rate 98 H 80 78 Respiratory Rate 20 20 20 Blood Pressure 141/71 H 138/60 128/59 L Pulse Oximetry 92 L 98 98 10/14/18 18:45 10/14/18 19:00 10/14/18 19:15 Temperature 97.7 F Pulse Rate 80 80 80 Respiratory Rate 20 16 18 Blood Pressure 154/70 H 137/63 147/67 H Pulse Oximetry 98 98 99 10/14/18 19:20 10/14/18 19:30 10/14/18 20:00 Temperature Pulse Rate 77 79 Respiratory Rate 16 14 Blood Pressure 131/60 Pulse Oximetry 98 98 10/14/18 23:00 10/14/18 23:30 10/15/18 00:00 Temperature 97.8 F Pulse Rate 78 69 Respiratory Rate 15 2 L Blood Pressure Pulse Oximetry 98 95 10/15/18 00:11 10/15/18 01:00 10/15/18 02:00 Temperature Pulse Rate 78 71 76 Respiratory Rate 17 9 L 9 L Blood Pressure 137/62 118/65 103/61 Pulse Oximetry 96 96 95 10/15/18 03:00 10/15/18 04:00 10/15/18 05:00 Temperature 98.1 F Pulse Rate 72 73 76 Respiratory Rate 8 L 3 L 9 L Blood Pressure 110/59 L 130/75 130/75 Pulse Oximetry 96 96 97 10/15/18 06:00 10/15/18 07:00 10/15/18 08:00 Temperature 98.4 F Pulse Rate 79 79 77 Respiratory Rate 10 L 9 L 10 L Blood Pressure 126/66 124/63 131/69 Pulse Oximetry 95 96 97 10/15/18 09:00 10/15/18 10:00 10/15/18 10:19 Temperature Pulse Rate 87 85 87 Respiratory Rate 18 14 13 Blood Pressure 165/89 H 146/106 H 138/63 Pulse Oximetry 99 99 97 10/15/18 10:29 10/15/18 11:00 10/15/18 12:00 Temperature 98.2 F Pulse Rate 83 99 H Respiratory Rate 12 10 L 23 Blood Pressure 128/63 147/70 H Pulse Oximetry 96 97 10/15/18 12:07 10/15/18 12:09 Temperature Pulse Rate 96 H 93 H Respiratory Rate 30 H 24 Blood Pressure 148/72 H 145/76 H Pulse Oximetry 97 94 L Intake & Output 10/14/18 10/15/18 10/15/18 18:59 06:59 18:59 Intake Total 1500 / 1500 250 / 250 Output Total 200 / 200 785 / 785 Balance 1300 / 1300 -535 / -535 Weight 84.6 kg Intake: Oral 250 / 250 Anesthesia Amount 1500 / 1500 Output: Urine 700 / 700 Emesis 50 / 50 Estimated Blood Loss 200 / 200 Wound Drainage 35 / 35 # 1 Right Neck JEEVAN Drain 35 / 35 Other: Date of Last Bowel Movement 10/13/18 10/13/18 10/13/18 Laboratory Results - last 24 hr 10/15/18 10/15/18 10/15/18 00:29 06:18 06:18 WBC 15.7 H RBC 4.55 Hgb 14.1 Hct 41.5 MCV 91.1 MCH 31.1 MCHC 34.1 RDW 13.7 Plt Count 223 MPV 8.7 Prelim Diff (Auto) Slide review pending Neut % (Auto) 90.7 H Lymph % (Auto) 3.5 L Brooke % (Auto) 5.7 Eos % (Auto) 0.0 Baso % (Auto) 0.1 Neut # (Auto) 14.2 H Lymph # (Auto) 0.5 L Brooke # (Auto) 0.9 Eos # (Auto) 0.0 Baso # (Auto) 0.0 WBC Differential . Diff Scan Auto diff confirmed Differential Comment . Sodium 139 Potassium 4.6 Chloride 110 H Carbon Dioxide 17.2 L Anion Gap 12 BUN 20 H Creatinine 0.98 Estimated GFR 57 L POC Glucose 195 H Random Glucose 135 H Calcium 8.1 L D Phosphorus 3.6 Magnesium 2.3 Albumin 3.[address] 10/13/18 00:00 CONCLUSION: 1. No acute findings. No evidence of acute hemorrhage. .
[2018-10-15 16:21] VITALS: BP 109/61; PULSE 73; TEMP 98.4; O2SAT 97
[2018-10-15 17:29] VITALS: RESP 14
== END 2018-10-15 17:25 | disposition home or self-care (01) ==
LOC: NEPE 13:42 → NEDA 14:38 → N04 15:35 → N03 10-14 22:56
PROVIDERS: ADMIT Surgery; ATTEND Surgery

== ENCOUNTER 2018-10-17 06:27 | Inpatient (IN) ==
[2018-10-17] MEDS ORDERED: Sod Chloride 0.9% Inj 1,000 ML IV.CONT SCH (06:45)
--- NOTE | 2018-10-17 06:51 | CT ---
EXAM DATE: 10/17/2018 6:47 AM EST AGE/SEX: 63 years / Female INDICATIONS: Stroke alert; left facial numbness. CLINICAL DATA: This is the patient's initial encounter. Patient reports that signs and symptoms have been present for 1 day and indicates a pain score of 0/10. MEDICAL/SURGICAL HISTORY: Cardiovascular disease. Hypertension. Carotid endarterectomy. RADIATION DOSE: 52.83 CTDI (mGy) [place] [facility] [place]. . TECHNIQUE: CT of the head without contrast. Using automated exposure control and adjustment of the mA and/or kV according to patient size, radiation dose was kept as low as reasonably achievable to ob tain optimal diagnostic quality images. DICOM format image data is available electronically for revi ew and comparison. FINDINGS: Cerebrum: The ventricles are normal for age. No evidence of midline shift, mass lesion, hemorrhage or acute infarction. No extraaxial fluid collections are seen. Posterior Fossa: The cerebellum and brainstem are intact. The 4th ventricle is midline. The cerebe llopontine angle is unremarkable. Extracranial: The visualized portion of the orbits is intact. Skull: The calvaria is intact. No evidence of skull fracture. CONCLUSION: 1. Negative CT Head non contrast. Report was called by [ Dr. Cole to Dr. Dennison at 649am. Electronically signed by: Bob Cole MD 10/17/2018 6:49 AM EST
[2018-10-17 06:54] LABS: Baso # (Auto) 0.1 th/mm3 (0.0-0.2); Baso % (Auto) 0.6 % (0.0-2.0); Eos # (Auto) 0.3 th/mm3 (0.0-0.4); Eos % (Auto) 1.9 % (0.0-4.0); Hematocrit 39.5 % (35.0-46.0); Hemoglobin 13.3 gm/dL (11.6-15.3); Lymph # (Auto) 3.4 th/mm3 (1.0-4.8); Lymph % (Auto) 25.1 % (9.0-44.0); Mean Corpuscular HGB Conc 33.7 % (32.0-36.0); Mean Corpuscular Hemoglobin 30.9 pg (27.0-34.0); Mean Corpuscular Volume 91.7 fL (80.0-100.0); Mean Platelet Volume 8.3 fL (7.0-11.0); Mono # (Auto) 1.4 th/mm3 (0.0-0.9); Neut # (Auto) 8.6 th/mm3 (1.8-7.7); Neut % (Auto) 62.4 % (16.0-70.0); Platelet Count 251 th/mm3 (150-450); Red Blood Count 4.31 mil/mm3 (4.00-5.30); Red Cell Distribution Width 13.6 % (11.6-17.2); White Blood Count 13.7 th/mm3 (4.0-11.0)
[2018-10-17 07:07] LABS: Activated Partial Thrombo Time 24.2 sec (23.4-31.7); Prothrombin Time 9.9 sec (9.8-11.6)
--- NOTE | 2018-10-17 07:10 | XR ---
EXAM DATE: 10/17/2018 6:59 AM EST AGE/SEX: 63 years / Female INDICATIONS: Stroke alert. CLINICAL DATA: This is the patient's initial encounter. Patient reports that signs and symptoms have been present for 1 day and indicates a pain score of 0/10. MEDICAL/SURGICAL HISTORY: . Cardiovascular disease. Hypertension. . Carotid endarterectomy. COMPARISON: [facility] [place] 1V SINGLE AP, 10/13/2018. . FINDINGS: A single AP view of the chest demonstrates the lungs to be symmetrically aerated without evidence of mass, infiltrate or effusion. The cardiomediastinal contours are unremarkable. Osseous structures a re intact. CONCLUSION: Negative examination. Electronically signed by: Laurence Valenzuela MD 10/17/2018 7:09 AM EST
--- NOTE | 2018-10-17 07:10 | CT ---
EXAM DATE: 10/17/2018 6:58 AM EST AGE/SEX: 63 years / Female INDICATIONS: Stroke alert; left facial numbness. CLINICAL DATA: This is the patient's initial encounter. Patient reports that signs and symptoms have been present for 1 day and indicates a pain score of 0/10. MEDICAL/SURGICAL HISTORY: Hypertension. Cardiovascular disease. Carotid endarterectomy. RADIATION DOSE: 11.08 CTDI (mGy) ; Combined studies COMPARISON: [facility] – [place], [place] CEREBRAL PERF W CONTRAST W 3D, 10/17/2018. [facility] [place], [place] HEAD W/O CONTRAST, 10/01. . TECHNIQUE: Volumetric scanning was performed using a multi-row detector CT scanner during bolus infu salvatore of 60 ml Omnipaque 350 (iohexol) nonionic water-soluble contrast as a cumulative dose for multi ple exams. The data was post processed with a variety of visualization algorithms including full vo lume maximum intensity projection, multi-planar sliding thin slab reformation, curved planar reformat ion, and surface rendering techniques. Using automated exposure control and adjustment of the mA and /or kV according to patient size, radiation dose was kept as low as reasonably achievable to obtain o ptimal diagnostic quality images. DICOM format image data is available electronically for review and comparison. FINDINGS: There is excellent visualization of the major intracranial arteries out to the second-order branch ve ssels. There is no evidence for aneurysm, vessel truncation or stenosis, and no evidence for vascula r malformation. CONCLUSION: 1. Negative CTA Head. Report was called by [ Dr. Valenzuela to Dr. Dennison at 7:08 AM.] Electronically signed by: Laurence Valenzuela MD 10/17/2018 7:08 AM EST
--- NOTE | 2018-10-17 07:11 | CT ---
EXAM DATE: 10/17/2018 7:06 AM EST AGE/SEX: 63 years / Female INDICATIONS: Stroke Alert; left facial numbness. CLINICAL DATA: This is the patient's initial encounter. Patient reports that signs and symptoms have been present for 1 day and indicates a pain score of 0/10. MEDICAL/SURGICAL HISTORY: Hypertension. Cardiovascular disease. Carotid endarterectomy. RADIATION DOSE: 218 CTDI (mGy) ; High dose protocol COMPARISON: [facility], CT HEAD W/O CONTRAST, 10/17/2018. [facility] [place], CTA HEAD W CONTRAST W 3D, 10/17/2018. . TECHNIQUE: CT of the head after intravenous administration of 40 ml Visipaque 320 (iodixanol) nonio joana water-soluble contrast as a cumulative dose for multiple exams. Using automated exposure control and adjustment of the mA and/or kV according to patient size, radiation dose was kept as low as reas onably achievable to obtain optimal diagnostic quality images. DICOM format image data is available electronically for review and comparison. FINDINGS: 1. CBF (<30%) Volume (ml): 0 2. Perfusion (Tmax>6.0s) Volume (ml): 0 3. Mismatch Volume (ml) (Tmax>6.0 - CBF): 0 CONCLUSION: Physiological brain perfusion parameters with RAPID analysis as above. The decision for consideration of therapy is multi factorial and multi disciplinary relying on subjec tive and objective clinical data. This data is not construed or intended to be the sole determinant of treatment eligibility. Electronically signed by: Laurence Valenzuela MD 10/17/2018 7:10 AM EST
--- NOTE | 2018-10-17 07:17 | CT ---
EXAM DATE: 10/17/2018 7:08 AM EST AGE/SEX: 63 years / Female INDICATIONS: Stroke alert; left facial numbness. CLINICAL DATA: This is the patient's initial encounter. Patient reports that signs and symptoms have been present for 1 day and indicates a pain score of 0/10. MEDICAL/SURGICAL HISTORY: Hypertension. Cardiovascular disease. Carotid endarterectomy. RADIATION DOSE: 11.08 CTDI (mGy) ; Combined studies COMPAR[place]: [facility] [place] W 3D, 09/02/2018. [facility] [place]AST, 09/03/2018. . TECHNIQUE: Volumetric scanning was performed using a multirow detector CT scanner during bolus infus ion of 60 ml Omnipaque 350 (iohexol) nonionic water-soluble contrast as a cumulative dose for multip le exams. The data was postprocessed with a variety of visualization algorithms including full-volu me maximum intensity projection, multiplanar sliding thin-slab reformation, curved-planar reformation , and surface-rendering techniques. Using automated exposure control and adjustment of the mA and/or kV according to patient size, radiation dose was kept as low as reasonably achievable to obtain opti mal diagnostic quality images. DICOM format image data is available electronically for review and co mparison. FINDINGS: Aortic Arch: There is a three-vessel origin of the great vessels from the aorta. No evidence of ost ial narrowing Right Carotid: The common carotid artery is intact. Eccentric mixed plaque extending from the distal bulb to the origin of the internal carotid artery with resultant approximately 60% stenosis. Internal carotid artery is otherwise patent to the skull base. The external carotid artery is intact. Left Carotid: The common carotid artery is intact. Circumferential calcified plaque extending from th e distal bulb to the origin of the internal carotid artery with resultant 45-50% stenosis. Internal c arotid arteries otherwise patent to the skull base. The external carotid artery is intact. . Vertebrals: The vertebral arteries have a symmetric diameter. No stenotic lesions are seen. Percent stenosis is calculated using the diameter of the stenotic region over the diameter of the nor mal distal internal carotid artery. CONCLUSION: 1. Stable eccentric mixed plaque in the right carotid bulb extending to the internal carotid origin w ith resultant 60% stenosis. 2. Stable circumferential calcified plaque extending from the left carotid bulb to the internal carot id origin with resultant 45-50% stenosis. 3. Patent vertebral arteries bilaterally. Electronically signed by: Laurence Valenzuela MD 10/17/2018 7:16 AM EST
--- NOTE | 2018-10-17 07:23 | ED ---
HPI General Chief complaint: Stroke Alert Stated complaint: Poss Stroke Alert Time Seen by Provider: 10/17/18 07:27 Source: patient Mode of arrival: EMS Limitations: no limitations History of Present Illness HPI narrative: This is a 63-year-old female who presents to the emergency department having had a carotid endarterectomy with on 10/14 here with numbness and difficulty speaking that started around 7 PM last evening and has been worsening throughout the night. She reports that she noticed last night that her left side of her face was drooping and then she progressively started to feel numb in her left shoulder and she feels like she is having trouble getting her words out, constant, moderate severity. She has a history of a stroke with deficits in the left side but the symptoms are new and worse. She also woke up in the middle the night feeling lightheaded and dizzy thinking her blood pressure might be low. Related Data Previous Rx's Medication Instructions Recorded metoprolol tartrate 50 mg PO BID tab 10/15/18 oxycodone-acetaminophen 1 tab PO Q6H PRN #10 tab 10/15/18 lisinopril 40 mg PO DAILY #90 tab 10/18/18 pravastatin 40 mg PO HS #30 tab 10/18/18 promethazine [Phenergan] 25 mg RECTAL Q6H PRN #10 each 10/18/18 sertraline [Zoloft] 100 mg PO DAILY #30 tab 10/18/18 Allergies Allergy/AdvReac Type Severity Reaction Status Date / Time codeine AdvReac Mild Nausea Verified 10/17/18 06:30 vomiting Review of Systems ROS: all other systems reviewed are negative [facility] Social History Social History Substance History: No History of Abuse Second Hand Smoke Exposure: No Smoking Status: Never smoker Tobacco Type: Cigarettes How Often Do You Have a Drink Containing Alcohol: Never Recent Travel in [facility] within the Last 8 Weeks: No Recent Out of Country Travel within the Last 8 Weeks: No Immunization History Tetanus Immunization: <5 Years Exam Narrative Exam Narrative: GENERAL:Well appearing, no acute distress SKIN: Focused skin assessment warm and dry. HEAD: Atraumatic. Normocephalic. EYES: Pupils equal and round. No injection or drainage. ENT: Moist mucous membranes NECK: Trachea midline. Surgical scar in the right neck well-healing with no underlying hematoma. CARDIOVASCULAR: Regular rate and rhythm. No murmur appreciated. RESPIRATORY: Clear to auscultation. Breath sounds equal bilaterally. GASTROINTESTINAL: Abdomen soft, non-tender, nondistended. MUSCULOSKELETAL: No obvious deformities. NEUROLOGICAL: Awake and alert. Left-sided facial droop. Moderate dysarthria and mild aphasia. No upper or lower extremity drift. No upper extremity ataxia. Visual neely intact. PSYCHIATRIC: Appropriate mood and affect; insight and judgment normal. Course Initial Documented Vital Signs Temperature 98.4 F 10/17/18 06:30 Pulse Rate 91 H 10/17/18 06:30 Respiratory Rate 18 10/17/18 06:30 Blood Pressure 174/79 H 10/17/18 06:30 Pulse Oximetry 98 10/17/18 06:30 Last Documented Vital Signs Temperature 98.1 F 10/18/18 07:43 Pulse Rate 106 H 10/18/18 09:00 Respiratory Rate 20 10/18/18 07:43 Blood Pressure 182/81 H 10/18/18 07:43 Pulse Oximetry 93 L 10/18/18 07:43 Sign Out Sign Out Data: Patient Sign Out occurred on 10/17/18 at 09:26. Patient's care was discussed, and care was transferred from Bridgett Dennison MD to Jose Downing MD. Sign Out Comment: Pt with stroke symptoms starting 7 PM last night (left facial droop and left arm numbness with some aphasia), not TPA candidate due to prior recent stroke, recent surgery and time frame. Admit to hospitalist pending CT results. Last updated by Bridgett Dennison MD at 10/17/18 07:28 Post-Handoff Eval: This case is checked out to me by Dr. Valladares. I have reevaluated the patient. She reports that her speech is improving. She speaks in understandable sentences. She does have a mild facial droop. I discussed the case in detail with the hospitalist who will admit. Neurologist has seen the patient already. NIH Stroke Scale NIH Stroke Scale Level of Consciousness: 0-Alert Orientation Questions: 0-Answers both correct Responds to Commands: 0-Both tasks correct Gaze Eye Movement: 0-Horizontal movement WNL Visual Neely: 0-No visual field defect Facial Movement: 1-Minor facial palsy Motor Functions Arm LEFT: 0-No drift Motor Functions Arm RIGHT: 0-No drift Motor Functions Leg LEFT: 0-No drift Motor Functions Leg RIGHT: 0-No drift Limb Ataxia: 0-No ataxia Sensory Loss: 0-No sensory loss Best Language: 0-Normal Articulation: 0-Normal Extinction or Inattention Sensory: 0-Absent Total: 1 Medical Decision Making MDM Narrative Medical decision making narrative: This is a 63-year-old female who presents to the emergency department with strokelike symptoms following a carotid endarterectomy. Given her symptoms started within the past 24 hours a stroke alert was called. She is not a TPA candidate given she had a recent stroke, recent surgery, and symptoms starting 12 hours prior. Patient was transported to CT and a dry CT was negative. Patient will be admitted pending results. Medical Screen Exam Complete: Yes Emergency Medical Condition: Yes Lab Data Result diagrams: 10/17/18 06:33 Lab Results 10/17/18 10/17/18 10/17/18 Range/Units 06:33 06:33 06:33 WBC 13.7 H (4.0-11.0) th/mm3 RBC 4.31 (4.00-5.30) mil/mm3 Hgb 13.3 (11.6-15.3) gm/dL POC Hgb (Calc) 12.9 (11.6-15.3) g/dL Hct 39.5 (35.0-46.0) % POC Hct 38.0 (35-46.0) % MCV 91.7 (80.0-100.0) fL MCH 30.9 (27.0-34.0) pg MCHC 33.7 (32.0-36.0) % RDW 13.6 (11.6-17.2) % Plt Count 251 (150-450) th/mm3 MPV 8.3 (7.0-11.0) fL Neut % (Auto) 62.4 (16.0-70.0) % Lymph % (Auto) 25.1 (9.0-44.0) % Blaine % (Auto) 10.0 H (0.0-8.0) % Eos % (Auto) 1.9 (0.0-4.0) % Baso % (Auto) 0.6 (0.0-2.0) % Neut # (Auto) 8.6 H (1.8-7.7) th/mm3 Lymph # (Auto) 3.4 (1.0-4.8) th/mm3 Blaine # (Auto) 1.4 H (0.0-0.9) th/mm3 Eos # (Auto) 0.3 (0.0-0.4) th/mm3 Baso # (Auto) 0.1 (0.0-0.2) th/mm3 WBC Differential . Differential Comment Auto diff final PT 9.9 (9.8-11.6) sec INR 1.0 Ratio APTT 24.2 (23.4-31.7) sec Fibrinogen 434 H (227-377) mg/dL POC Sodium 139 (137-144) mmol/L POC Potassium 4.6 (3.6-5.0) mmol/L POC Chloride 101 L (102-111) mmol/L POC BUN 21 (5-21) mg/dL POC Creatinine 0.9 (0.6-1.3) mg/dL POC Glucose 114 H (68-110) mg/dL Hemoglobin A1c (4.3-6.0) % Total Creatine Kinase 196 H (26-192) U/L CK-MB (CK-2) 1.5 (0.5-3.6) ng/mL CK-MB (CK-2) % 0.8 (0.0-4.0) % Troponin I Less than 0.02 L (0.02-0.05) ng/mL Triglycerides (42-150) mg/dL Cholesterol (120-200) mg/dL LDL Cholesterol, Calc (0-99) mg/dL HDL Cholesterol (40.0-60.0) mg/dL Cholesterol/HDL Ratio Ratio Beta HCG, Quant 2 (0-5) mIU/mL Urine Color (Yellw/Straw) Urine Clarity (Clear) Urine pH (5.0-8.5) Ur Specific [place] (1.002-1.035) Urine Protein (Neg-Trace) mg/dL Urine Glucose (UA) (Negative) mg/dL Urine Ketones (Negative) mg/dL Urine Occult Blood (Negative) Urine Nitrate (Negative) Urine Bilirubin (Negative) Urine Urobilinogen (Less than 2) mg/dL Ur Leukocyte Esterase (Negative) Urine RBC (0-3) /hpf Ur Squamous Epith Cells (0-5) /hpf Urine Mucus (Occasional) /lpf Micro UA Comment Ur Microscopic Review Urine Culture Comments Urine Opiates Screen (Neg) Ur Barbiturates Screen (Neg) Ur Amphetamines Screen (Neg) U Benzodiazepines Scrn (Neg) Urine Cocaine Screen (Neg) U Cannabinoids Screen (Neg) Blood Type Antibody Screen 10/17/18 10/17/18 10/17/18 Range/Units 07:06 07:58 07:58 WBC (4.0-11.0) th/mm3 RBC (4.00-5.30) mil/mm3 Hgb (11.6-15.3) gm/dL POC Hgb (Calc) (11.6-15.3) g/dL Hct (35.0-46.0) % POC Hct (35-46.0) % MCV (80.0-100.0) fL MCH (27.0-34.0) pg MCHC (32.0-36.0) % RDW (11.6-17.2) % Plt Count (150-450) th/mm3 MPV (7.0-11.0) fL Neut % (Auto) (16.0-70.0) % Lymph % (Auto) (9.0-44.0) % Blaine % (Auto) (0.0-8.0) % Eos % (Auto) (0.0-4.0) % Baso % (Auto) (0.0-2.0) % Neut # (Auto) (1.8-7.7) th/mm3 Lymph # (Auto) (1.0-4.8) th/mm3 [place]aine # (Auto) (0.0-0.9) th/mm3 Eos # (Auto) (0.0-0.4) th/mm3 Baso # (Auto) (0.0-0.2) th/mm3 WBC Differential Differential Comment PT (9.8-11.6) sec INR Ratio APTT (23.4-31.7) sec Fibrinogen (227-377) mg/dL POC Sodium (137-144) mmol/L POC Potassium (3.6-5.0) mmol/L POC Chloride (102-111) mmol/L POC BUN (5-21) mg/dL POC Creatinine (0.6-1.3) mg/dL POC Glucose (68-110) mg/dL Hemoglobin A1c (4.3-6.0) % Total Creatine Kinase (26-192) U/L CK-MB (CK-2) (0.5-3.6) ng/mL CK-MB (CK-2) % (0.0-4.0) % Troponin I (0.02-0.05) ng/mL Triglycerides (42-150) mg/dL Cholesterol (120-200) mg/dL LDL Cholesterol, Calc (0-99) mg/dL HDL Cholesterol (40.0-60.0) mg/dL Cholesterol/HDL Ratio Ratio Beta HCG, Quant (0-5) mIU/mL Urine Color Yellow (Yellw/Straw) Urine Clarity Clear (Clear) Urine pH 5.0 (5.0-8.5) Ur Specific [place] Greater than 1.060 H (1.002-1.035) Urine Protein Negative (Neg-Trace) mg/dL Urine Glucose (UA) Negative (Negative) mg/dL Urine Ketones Negative (Negative) mg/dL Urine Occult Blood Negative (Negative) Urine Nitrate Negative (Negative) Urine Bilirubin Negative (Negative) Urine Urobilinogen Less than 2 (Less than 2) mg/dL Ur Leukocyte Esterase Negative (Negative) Urine RBC 1 (0-3) /hpf Ur Squamous Epith Cells 1 (0-5) /hpf Urine Mucus Few H (Occasional) /lpf Micro UA Comment Culture not ind Ur Microscopic Review Not Reportable Urine Culture Comments Culture not ind Urine Opiates Screen Neg (Neg) Ur Barbiturates Screen Neg (Neg) Ur Amphetamines Screen Neg (Neg) U Benzodiazepines Scrn Neg (Neg) Urine Cocaine Screen Neg (Neg) U Cannabinoids Screen Pos H (Neg) Blood Type O Negative Antibody Screen Negative 10/17/18 10/17/18 10/17/18 Range/Units 13:45 16:51 20:32 WBC (4.0-11.0) th/mm3 RBC (4.00-5.30) mil/mm3 Hgb (11.6-15.3) gm/dL POC Hgb (Calc) (11.6-15.3) g/dL Hct (35.0-46.0) % POC Hct (35-46.0) % MCV (80.0-100.0) fL MCH (27.0-34.0) pg MCHC (32.0-36.0) % RDW (11.6-17.2) % Plt Count (150-450) th/mm3 MPV (7.0-11.0) fL Neut % (Auto) (16.0-70.0) % Lymph % (Auto) (9.0-44.0) % Blaine % (Auto) (0.0-8.0) % Eos % (Auto) (0.0-4.0) % Baso % (Auto) (0.0-2.0) % Neut # (Auto) (1.8-7.7) th/mm3 Lymph # (Auto) (1.0-4.8) th/mm3 Blaine # (Auto) (0.0-0.9) th/mm3 Eos # (Auto) (0.0-0.4) th/mm3 Baso # (Auto) (0.0-0.2) th/mm3 WBC Differential Differential Comment PT (9.8-11.6) sec INR Ratio APTT (23.4-31.7) sec Fibrinogen (227-377) mg/dL POC Sodium (137-144) mmol/L POC Potassium (3.6-5.0) mmol/L POC Chloride (102-111) mmol/L POC BUN (5-21) mg/dL POC Creatinine (0.6-1.3) mg/dL POC Glucose 87 118 H 192 H (68-110) mg/dL Hemoglobin A1c (4.3-6.0) % Total Creatine Kinase (26-192) U/L CK-MB (CK-2) (0.5-3.6) ng/mL CK-MB (CK-2) % (0.0-4.0) % Troponin I (0.02-0.05) ng/mL Triglycerides (42-150) mg/dL Cholesterol (120-200) mg/dL LDL Cholesterol, Calc (0-99) mg/dL HDL Cholesterol (40.0-60.0) mg/dL Cholesterol/HDL Ratio Ratio Beta HCG, Quant (0-5) mIU/mL Urine Color (Yellw/Straw) Urine Clarity (Clear) Urine pH (5.0-8.5) Ur Specific [place] (1.002-1.035) Urine Protein (Neg-Trace) mg/dL Urine Glucose (UA) (Negative) mg/dL Urine Ketones (Negative) mg/dL Urine Occult Blood (Negative) Urine Nitrate (Negative) Urine Bilirubin (Negative) Urine Urobilinogen (Less than 2) mg/dL Ur Leukocyte Esterase (Negative) Urine RBC (0-3) /hpf Ur Squamous Epith Cells (0-5) /hpf Urine Mucus (Occasional) /lpf Micro UA Comment Ur Microscopic Review Urine Culture Comments Urine Opiates Screen (Neg) Ur Barbiturates Screen (Neg) Ur Amphetamines Screen (Neg) U Benzodiazepines Scrn (Neg) Urine Cocaine Screen (Neg) U Cannabinoids Screen (Neg) Blood Type Antibody Screen 10/18/18 10/18/18 10/18/18 Range/Units 07:42 07:47 07:47 WBC (4.0-11.0) th/mm3 RBC (4.00-5.30) mil/mm3 Hgb (11.6-15.3) gm/dL POC Hgb (Calc) (11.6-15.3) g/dL Hct (35.0-46.0) % POC Hct (35-46.0) % MCV (80.0-100.0) fL MCH (27.0-34.0) pg MCHC (32.0-36.0) % RDW (11.6-17.2) % Plt Count (150-450) th/mm3 MPV (7.0-11.0) fL Neut % (Auto) (16.0-70.0) % Lymph % (Auto) (9.0-44.0) % Blaine % (Auto) (0.0-8.0) % Eos % (Auto) (0.0-4.0) % Baso % (Auto) (0.0-2.0) % Neut # (Auto) (1.8-7.7) th/mm3 Lymph # (Auto) (1.0-4.8) th/mm3 [place] # (Auto) (0.0-0.9) th/mm3 Eos # (Auto) (0.0-0.4) th/mm3 Baso # (Auto) (0.0-0.2) th/mm3 WBC Differential Differential Comment PT (9.8-11.6) sec INR Ratio APTT (23.4-31.7) sec Fibrinogen (227-377) mg/dL POC Sodium (137-144) mmol/L POC Potassium (3.6-5.0) mmol/L POC Chloride (102-111) mmol/L POC BUN (5-21) mg/dL POC Creatinine (0.6-1.3) mg/dL POC Glucose 127 H (68-110) mg/dL Hemoglobin A1c 5.3 (4.3-6.0) % Total Creatine Kinase (26-192) U/L CK-MB (CK-2) (0.5-3.6) ng/mL CK-MB (CK-2) % (0.0-4.0) % Troponin I (0.02-0.05) ng/mL Triglycerides 164 H (42-150) mg/dL Cholesterol 197 (120-200) mg/dL LDL Cholesterol, Calc 108 H (0-99) mg/dL HDL Cholesterol 56.2 (40.0-60.0) mg/dL Cholesterol/HDL Ratio 3.50 Ratio Beta HCG, Quant (0-5) mIU/mL Urine Color (Yellw/Straw) Urine Clarity (Clear) Urine pH (5.0-8.5) Ur Specific [place] (1.002-1.035) Urine Protein (Neg-Trace) mg/dL Urine Glucose (UA) (Negative) mg/dL Urine Ketones (Negative) mg/dL Urine Occult Blood (Negative) Urine Nitrate (Negative) Urine Bilirubin (Negative) Urine Urobilinogen (Less than 2) mg/dL Ur Leukocyte Esterase (Negative) Urine RBC (0-3) /hpf Ur Squamous Epith Cells (0-5) /hpf Urine Mucus (Occasional) /lpf Micro UA Comment Ur Microscopic Review Urine Culture Comments Urine Opiates Screen (Neg) Ur Barbiturates Screen (Neg) Ur Amphetamines Screen (Neg) U Benzodiazepines Scrn (Neg) Urine Cocaine Screen (Neg) U Cannabinoids Screen (Neg) Blood Type Antibody Screen 10/18/18 Range/Units 12:02 WBC (4.0-11.0) th/mm3 RBC (4.00-5.30) mil/mm3 Hgb (11.6-15.3) gm/dL POC Hgb (Calc) (11.6-15.3) g/dL Hct (35.0-46.0) % POC Hct (35-46.0) % MCV (80.0-100.0) fL MCH (27.0-34.0) pg MCHC (32.0-36.0) % RDW (11.6-17.2) % Plt Count (150-450) th/mm3 MPV (7.0-11.0) fL Neut % (Auto) (16.0-70.0) % Lymph % (Auto) (9.0-44.0) % [place] % (Auto) (0.0-8.0) % Eos % (Auto) (0.0-4.0) % Baso % (Auto) (0.0-2.0) % Neut # (Auto) (1.8-7.7) th/mm3 Lymph # (Auto) (1.0-4.8) th/mm3 [place] # (Auto) (0.0-0.9) th/mm3 Eos # (Auto) (0.0-0.4) th/mm3 Baso # (Auto) (0.0-0.2) th/mm3 WBC Differential Differential Comment PT (9.8-11.6) sec INR Ratio APTT (23.4-31.7) sec Fibrinogen (227-377) mg/dL POC Sodium (137-144) mmol/L POC Potassium (3.6-5.0) mmol/L POC Chloride (102-111) mmol/L POC BUN (5-21) mg/dL POC Creatinine (0.6-1.3) mg/dL POC Glucose 216 H (68-110) mg/dL Hemoglobin A1c (4.3-6.0) % Total Creatine Kinase (26-192) U/L CK-MB (CK-2) (0.5-3.6) ng/mL CK-MB (CK-2) % (0.0-4.0) % Troponin I (0.02-0.05) ng/mL Triglycerides (42-150) mg/dL Cholesterol (120-200) mg/dL LDL Cholesterol, Calc (0-99) mg/dL HDL Cholesterol (40.0-60.0) mg/dL Cholesterol/HDL Ratio Ratio Beta HCG, Quant (0-5) mIU/mL Urine Color (Yellw/Straw) Urine Clarity (Clear) Urine pH (5.0-8.5) Ur Specific [place] (1.002-1.035) Urine Protein (Neg-Trace) mg/dL Urine Glucose (UA) (Negative) mg/dL Urine Ketones (Negative) mg/dL Urine Occult Blood (Negative) Urine Nitrate (Negative) Urine Bilirubin (Negative) Urine Urobilinogen (Less than 2) mg/dL Ur Leukocyte Esterase (Negative) Urine RBC (0-3) /hpf Ur Squamous Epith Cells (0-5) /hpf Urine Mucus (Occasional) /lpf Micro UA Comment Ur Microscopic Review Urine Culture Comments Urine Opiates Screen (Neg) Ur Barbiturates Screen (Neg) Ur Amphetamines Screen (Neg) U Benzodiazepines Scrn (Neg) Urine Cocaine Screen (Neg) U Cannabinoids Screen (Neg) Blood Type Antibody Screen Imaging Data Radiologist's impression: CT CAD 10/17/18 06:38 CONCLUSION: Physiological brain perfusion parameters with RAPID analysis as above. The decision for consideration of therapy is multi factorial and multi disciplinary relying on subjective and objective clinical data. This data is not construed or intended to be the sole determinant of treatment eligibility. Chest X-Ray 10/17/18 06:38 CONCLUSION: Negative examination. Head CT 10/17/18 06:38 CONCLUSION: 1. Negative CT Head non contrast. Report was called by [ Dr. Cole to Dr. Dennison at 649am. Head CTA 10/17/18 06:38 CONCLUSION: 1. Negative CTA Head. Report was called by [ Dr. Valenzuela to Dr. Dennison at 7:08 AM.] Neck CTA 10/17/18 06:38 CONCLUSION: 1. Stable eccentric mixed plaque in the right carotid bulb extending to the internal carotid origin with resultant 60% stenosis. 2. Stable circumferential calcified plaque extending from the left carotid bulb to the internal carotid origin with resultant 45-50% stenosis. 3. Patent vertebral arteries bilaterally. Head MRI 10/17/18 11:09 CONCLUSION: 1. Minimal residual scattered cortical signal abnormalities are noted within the right high parietal region consistent with subacute right middle cerebral artery infarct. These findings are significantly improved compared to the previous examination dated 09/02/2018. No acute infarct is noted. No acute hemorrhage is noted. No midline shift or extra-axial bleed is noted. 2. Minimal periventricular and subcortical white matter small vessel ischemic changes. Discharge Plan Discharge Disposition Patient Disposition: 30 Still Patient Discharge Condition Condition: Good Discharge Order Discharge Orders: Discharge Order (Routine); Ordered 10/18/18 Ordered By: Betito Lundberg ED Use Only Admit Order (Routine); Ordered 10/17/18 Ordered By: Jose Downing Discharge Details Discharge Comment: DC when able to tolerate PO Diagnosis: Acute cerebrovascular accident (CVA) Physicians Team ED Provider: Jose Downing Primary Care Provider: UNKNOWN, Attending Provider: Betito Lundberg Other Providers: Alejandro Howell ; Brandon Dow Slobodan Status ED Status: Left Department Discharge Information Discharge Date/Time: 10/17/18 14:00
[2018-10-17 07:24] LABS: Beta HCG,Quantitative 2 mIU/mL (0-5); Creatine Kinase 196 U/L (26-192)
[2018-10-17 07:37] LABS: CKMB Percent 0.8 % (0.0-4.0); Creatine Kinase MB 1.5 ng/mL (0.5-3.6)
[2018-10-17 08:16] LABS: Bilirubin,Urine Negative (Negative); Clarity,Urine Clear (Clear); Color,Urine Yellow (Yellw/Straw); Glucose,Urine (UA) Negative (Negative); Leukocyte Esterase,Urine Negative (Negative); Mucus,Urine Few /lpf (Occasional); Nitrite,Urine Negative (Negative); Squamous Epithelial Cell,Urine 1 /hpf (0-5)
[2018-10-17] MEDS ORDERED: Dextrose 50% in Water 50 ML Vial IV.PUSH PRN (11:06)
[2018-10-17] MEDS ORDERED: Aspirin 325 MG Tablet PO SCH (11:15)
--- NOTE | 2018-10-17 12:42 | P.CONNEU ---
History of Present Illness Service: Neurology Primary Care Provider: UNKNOWN Chief Complaint: Recurrent left-sided weakness History of Present Illness: 60-year-old female with a recent right carotid endarterectomy and strokes presented to the emergency department with left facial weakness and left hemisensory symptoms. She does have residual left sided numbness from her previous stroke which occurred in August 2018 however felt a little more pronounced. This morning she feels that her facial droop is improved and the numbness is back to what it was with her initial stroke. Denies any headache or neck pain or any focal weakness. She is not IV TPA candidate as she had a stroke less than 3 months. In addition had vascular surgery. CT brain no acute lesion. States she has been compliant with aspirin and Plavix. Review of Systems All other systems reviewed negative except as stated in HPI [facility] - History History Provided By: Patient - Medical History Medical History: Medical History (Last Reviewed 10/17/18 @ 07:25 by Bridgett Dennison MD) Carotid artery disease Depression H/O coronary stenosis HTN (hypertension) Heart attack Hyperlipidemia - Surgical History Surgical History: Surgical History (Last Reviewed 10/17/18 @ 07:25 by Bridgett Dennison MD) H/O: hysterectomy History of cholecystectomy - Family History Family History: Family History (Last Reviewed 10/17/18 @ 07:25 by Bridgett Dennison MD) Grandparent Family history of myocardial infarction - Tobacco History Second Hand Smoke Exposure: No Smoking Status: Never smoker Tobacco Type: Cigarettes - Alcohol History How Often Do You Have a Drink Containing Alcohol: Never - Substance Use History Substance History: No History of Abuse - Travel History Recent Travel in the [place] Within the Last 8 Weeks: No Recent Travel Out of the Country Within the Last 8 Weeks: No - Immunization History Tetanus Immunization: <5 Years Medications and Allergies Active Medications: Active Medications Aspirin (Aspirin) 325 mg PO DAILY LORA Clopidogrel Bisulfate (Plavix) 75 mg PO DAILY [facility] Dextrose (D50w Vial) 50 ml IV.PUSH UNSCH PRN PRN Reason: PER HYPOGLYCEMIA PROTOCOL Enalaprilat (Vasotec Inj) 1.25 mg IV.PUSH Q4H PRN PRN Reason: For SBP > 220 or DBP > 120 Enoxaparin Sodium (Lovenox Inj) 40 mg SQ Q24H [facility] Glucagon (Glucagon Inj) 1 mg OTHER UNSCH PRN PRN Reason: for Hypoglycemia Protocol Sodium Chloride (Ns Inj) 1,000 mls @ 70 mls/hr IV.CONT .[id number] LORA Last Admin: 10/17/18 06:59 Dose: 70 mls/hr Sodium Chloride (Ns Inj) 1,000 mls @ 70 mls/hr IV.CONT .[id number] [facility] Insulin Aspart (Novolog Insulin Correctional Sugar Inj) 0 unit SQ ACHS LORA; Protocol Pravastatin Sodium (Pravachol) 40 mg PO HS LORA Sodium Chloride (Ns Flush) 2 ml IV.FLUSH BID LORA Sodium Chloride (Ns Flush) 2 ml IV.FLUSH PRN PRN PRN Reason: FLUSH AFTER USING IV ACCESS Allergies Allergy/AdvReac Type Severity Reaction Status Date / Time codeine AdvReac Mild Nausea Verified 10/17/18 06:30 vomiting Home Medications Medication Instructions Recorded Confirmed Type metoprolol tartrate 50 mg PO BID 09/02/18 10/17/18 History sertraline [Zoloft] 100 mg PO DAILY 09/02/18 10/17/18 History Exam Vital signs: Vital Signs 10/17/18 06:30 10/17/18 06:41 10/17/18 10:00 Temperature 98.4 F 98.7 F Pulse Rate 91 H 90 78 Respiratory Rate 18 18 18 Blood Pressure 174/79 H 157/60 H 159/79 H Pulse Oximetry 97 97 96 Intake & Output 10/16/18 10/17/18 10/17/18 18:59 06:59 18:59 Weight 84.7 kg Narrative: GENERAL: in NAD, SKIN: Warm and dry. HEAD: Atraumatic. Normocephalic. EYES: Pupils equal and round. ENT: No nasal bleeding or discharge. NECK: Trachea midline. No JVD. CARDIOVASCULAR: Regular rate and rhythm. RESPIRATORY: No accessory muscle use. GASTROINTESTINAL: Abdomen soft, non-tender, nondistended. MUSCULOSKELETAL: Extremities without clubbing, cyanosis, or edema. No obvious deformities. NEUROLOGICAL: Awake and alert. Oriented x3, pleasant appropriate no aphasia, slightly reduced left nasolabial fold smile otherwise symmetric, visual neely full tongue midline, able raise all 4 extremity gravity no pronator drift, mild left hemisensory which she states is old, gait not assessed secondary to fall risk PSYCHIATRIC: Appropriate mood and affect; insight and judgment normal. - Constitutional no acute distress - Routine HEENT Exam Head: Present: normocephalic Eye: Present: EOMI Results - Labs CBC & Chem 7: 10/17/18 06:33 Labs: Laboratory Results - last 24 hr 10/17/18 10/17/18 10/17/18 06:33 06:33 06:33 WBC 13.7 H RBC 4.31 Hgb 13.3 POC Hgb (Calc) 12.9 Hct 39.5 POC Hct 38.0 MCV 91.7 MCH 30.9 MCHC 33.7 RDW 13.6 Plt Count 251 MPV 8.3 Neut % (Auto) 62.4 Lymph % (Auto) 25.1 Cache % (Auto) 10.0 H Eos % (Auto) 1.9 Baso % (Auto) 0.6 Neut # (Auto) 8.6 H Lymph # (Auto) 3.4 Cache # (Auto) 1.4 H Eos # (Auto) 0.3 Baso # (Auto) 0.1 WBC Differential . Differential Comment Auto diff final PT 9.9 INR 1.0 APTT 24.2 Fibrinogen 434 H POC Sodium 139 POC Potassium 4.6 POC Chloride 101 L POC BUN 21 POC Creatinine 0.9 POC Glucose 114 H Total Creatine Kinase 196 H CK-MB (CK-2) 1.5 CK-MB (CK-2) % 0.8 Troponin I Less than 0.02 L Beta HCG, Quant 2 Urine Color Urine Clarity Urine pH Ur Specific Buhl Urine Protein Urine Glucose (UA) Urine Ketones Urine Occult Blood Urine Nitrate Urine Bilirubin Urine Urobilinogen Ur Leukocyte Esterase Urine RBC Ur Squamous Epith Cells Urine Mucus Micro UA Comment Ur Microscopic Review Urine Culture Comments Blood Type Antibody Screen 10/17/18 10/17/18 07:06 07:58 WBC RBC Hgb POC Hgb (Calc) Hct POC Hct MCV MCH MCHC RDW Plt Count MPV Neut % (Auto) Lymph % (Auto) Cache % (Auto) Eos % (Auto) Baso % (Auto) Neut # (Auto) Lymph # (Auto) Cache # (Auto) Eos # (Auto) Baso # (Auto) WBC Differential Differential Comment PT INR APTT Fibrinogen POC Sodium POC Potassium POC Chloride POC BUN POC Creatinine POC Glucose Total Creatine Kinase CK-MB (CK-2) CK-MB (CK-2) % Troponin I Beta HCG, Quant Urine Color Yellow Urine Clarity Clear Urine pH 5.0 Ur Specific Buhl Greater than 1.060 H Urine Protein Negative Urine Glucose (UA) Negative Urine Ketones Negative Urine Occult Blood Negative Urine Nitrate Negative Urine Bilirubin Negative Urine Urobilinogen Less than 2 Ur Leukocyte Esterase Negative Urine RBC 1 Ur Squamous Epith Cells 1 Urine Mucus Few H Micro UA Comment Culture not ind Ur Microscopic Review Not Reportable Urine Culture Comments Culture not ind Blood Type O Negative Antibody Screen Negative - Imaging Impressions CT CAD 10/17/18 06:38 CONCLUSION: Physiological brain perfusion parameters with RAPID analysis as above. The decision for consideration of therapy is multi factorial and multi disciplinary relying on subjective and objective clinical data. This data is not construed or intended to be the sole determinant of treatment eligibility. Chest X-Ray 10/17/18 06:38 CONCLUSION: Negative examination. Head CT 10/17/18 06:38 CONCLUSION: 1. Negative CT Head non contrast. Report was called by [ Dr. Cole to Dr. Dennison at 649am. Head CTA 10/17/18 06:38 CONCLUSION: 1. Negative CTA Head. Report was called by [ Dr. Valenzuela to Dr. Dennison at 7:08 AM.] Neck CTA 10/17/18 06:38 CONCLUSION: 1. Stable eccentric mixed plaque in the right carotid bulb extending to the internal carotid origin with resultant 60% stenosis. 2. Stable circumferential calcified plaque extending from the left carotid bulb to the internal carotid origin with resultant 45-50% stenosis. 3. Patent vertebral arteries bilaterally. Review/Management - Diagnosis (1) Chronic ischemic right MCA stroke Code(s): I69.30 - Unspecified sequelae of cerebral infarction Status: Acute Current Visit: Yes (2) History of right-sided carotid endarterectomy Code(s): Z98.890 - Other specified postprocedural states Status: Acute Current Visit: Yes (3) Hypertension Code(s): I10 - Essential (primary) hypertension Status: Chronic Current Visit: No (4) Dyslipidemia Code(s): E78.5 - Hyperlipidemia, unspecified Status: Chronic Current Visit: No - Review/Management Plan: Possible recurrent TIA versus extension of stroke versus new infarct; CT brain negative CTA carotids shows right carotid 60% stent stenosis of the bulb which is surprising as she had recent endarterectomy Recommendation Will change to Aggrenox 1 tablet twice daily in place of Plavix and aspirin Dr. J to look over the CTA carotids MRI brain if no contraindications Therapy If the MRI brain is stable after seen by vascular surgery; discharge planning Behavioral modification and risk factor reduction. Weight loss, blood pressure control, blood sugar control, lipid control. Exercise (3) Hypertension Qualifiers:
--- NOTE | 2018-10-17 12:59 | MR ---
EXAM DATE: 10/17/2018 12:53 PM EST AGE/SEX: 63 years / Female INDICATIONS: CVA. CLINICAL DATA: This is the patient's initial encounter. Patient reports that signs and symptoms have been present for 1 day and indicates a pain score of 0/10. MEDICAL/SURGICAL HISTORY: Cardiovascular disease. Hypertension. Cholecystectomy. Appendectomy . Hysterectomy. Recent carotid endarectomy. [place]: [facility] [place], 09/02/2018. [facility] [place] CEREBRAL PERF W CONTRAST W 3D, 2017. . TECHNIQUE: Multiplanar, multisequence examination of the brain was performed without contrast. FINDINGS: Cerebrum: Minimal residual scattered cortical signal abnormalities are noted within the right high p arietal region consistent with subacute right middle cerebral artery infarct. These findings are sign ificantly improved compared to the previous examination dated 09/02/2018. No acute infarct is noted. N o acute hemorrhage is noted. No midline shift or extra-axial bleed is noted. White Matter: Minimal periventricular and subcortical white matter small vessel ischemic changes are noted. Posterior Fossa: The cerebellum and brainstem are intact. The 4th ventricle is midline. The cerebel lopontine angle is unremarkable. The cerebellar tonsils are normal in position. Diffusion Imaging: No focal areas of restricted diffusion are seen. No evidence of acute infarction . Extracranial: The visualized portions of the orbits and paranasal sinuses are unremarkable. CONCLUSION: 1. Minimal residual scattered cortical signal abnormalities are noted within the right high parietal region consistent with subacute right middle cerebral artery infarct. These findings are significant ly improved compared to the previous examination dated 09/02/2018. No acute infarct is noted. No acute hemorrhage is noted. No midline shift or extra-axial bleed is noted. 2. Minimal periventricular and subcortical white matter small vessel ischemic changes. Electronically signed by: Jerman Espinal MD 10/17/2018 12:58 PM EST
[2018-10-17] MEDS: Insulin NovoLOG Aspart Correctional Sugar Inj SQ SCH ×3 (13:46→20:34)
--- NOTE | 2018-10-17 16:15 | P.HPIM ---
History of Present Illness Primary Care Physician: UNKNOWN Chief Complaint: Left facial numbness and droop History of Present Illness: 63-year-old white female with a history of hypertension, previous CVA in August, hyperlipidemia, CAD who had a recent right carotid endarterectomy performed on October 15 presented to emergency room with symptoms of left facial numbness along with left facial droop with slurred speech. She states last night she noted some bright dots in her vision neely and initially thought was due to the oxycodone she was taking for her recent surgery however when this progressed to left facial droop and then evolving left facial numbness this morning she came into the emergency room for evaluation. She states that she continues to have left facial numbness with no improvement. While she was in the emergency room as a stroke alert was called and per the neurologist was not a TPA candidate as she had a stroke less than 3 months ago. She denies any focalized arm or leg weakness. She denies any active headaches or any blurred vision at this time. She denies any difficulty with swallowing. She has not had any associated chest pain, palpitations nor any shortness of breath. She has not had any abdominal pain nor any bloody stools or black stools. Diagnosis (1) Chronic ischemic right MCA stroke: (2) History of right-sided carotid endarterectomy: (3) Hypertension: (4) Dyslipidemia: Inpatient Certification Inpatient Certification: I certify that the inpatient services were ordered in accordance with Medicare regulations governing the order. This includes certification that hospital inpatient services are reasonable and necessary and in the case of services not specified as inpatient-only under 42 CFR 419.22(n), that they are appropriately provided as inpatient services in accordance to with the 2-midnight benchmark under 43 CFR 412.3(e) Estimated Total Length of Stay (Days): 3 Plans for Post Hospital Care: Home Review of Systems Review of Systems: all other systems reviewed are negative [facility] Social History Social History Substance History: No History of Abuse Second Hand Smoke Exposure: No Smoking Status: Never smoker Tobacco Type: Cigarettes How Often Do You Have a Drink Containing Alcohol: Never Recent Travel in [place] within the Last 8 Weeks: No Recent Out of Country Travel within the Last 8 Weeks: No Immunization History Tetanus Immunization: <5 Years Medications and Allergies Allergies Allergy/AdvReac Type Severity Reaction Status Date / Time codeine AdvReac Mild Nausea Verified 10/17/18 06:30 vomiting Active Medications: Active Medications Aspirin (Ecotrin) 81 mg PO DAILY [facility] Dextrose (D50w Vial) 50 ml IV.PUSH UNSCH PRN PRN Reason: PER HYPOGLYCEMIA PROTOCOL Dipyridamole/Aspirin (Aggrenox) 1 cap PO Q12HR [facility] Enalaprilat (Vasotec Inj) 1.25 mg IV.PUSH Q4H PRN PRN Reason: For SBP > 220 or DBP > 120 Enoxaparin Sodium (Lovenox Inj) 40 mg SQ Q24H [facility] Glucagon (Glucagon Inj) 1 mg OTHER UNSCH PRN PRN Reason: for Hypoglycemia Protocol Sodium Chloride (Ns Inj) 1,000 mls @ 70 mls/hr IV.CONT .[id number] [facility] Last Admin: 10/17/18 06:59 Dose: 70 mls/hr Sodium Chloride (Ns Inj) 1,000 mls @ 70 mls/hr IV.CONT .[id number] [facility] Insulin Aspart (Novolog Insulin Correctional Sugar Inj) 0 unit SQ ACHS [facility]; Protocol Last Admin: 10/17/18 13:46 Dose: Not Given Pravastatin Sodium (Pravachol) 40 mg PO HS [facility] Sodium Chloride (Ns Flush) 2 ml IV.FLUSH BID LORA Sodium Chloride (Ns Flush) 2 ml IV.FLUSH PRN PRN PRN Reason: FLUSH AFTER USING IV ACCESS Physical Exam Vital signs: Last Vital Signs Temp 97.4 F L 10/17/18 12:00 Pulse 77 10/17/18 12:00 Resp 18 10/17/18 12:00 BP 176/75 H 10/17/18 12:00 Pulse Ox 96 10/17/18 12:00 Intake & Output 10/15/18 10/16/18 10/17/18 10/18/18 06:59 06:59 06:59 06:59 Weight 84.7 kg Narrative: GENERAL: Well-nourished well-developed white female no acute distress SKIN: Warm and dry. HEAD: Atraumatic. Normocephalic. EYES: Pupils equal and round. No scleral icterus. No injection or drainage. ENT: No nasal bleeding or discharge. Mucous membranes pink and moist. NECK: Trachea midline. No JVD. CARDIOVASCULAR: Regular rate and rhythm. RESPIRATORY: No accessory muscle use. Clear to auscultation. Breath sounds equal bilaterally. GASTROINTESTINAL: Abdomen soft, non-tender, nondistended. Hepatic and splenic margins not palpable. Normoactive bowel sounds MUSCULOSKELETAL: Extremities without clubbing, cyanosis, or edema. No obvious deformities. NEUROLOGICAL: Awake and alert to person place time situation. Small left facial droop, motor grossly within normal limits. Five out of 5 muscle strength in the arms and legs. Slight slurred speech when answering questions. PSYCHIATRIC: Appropriate mood and affect; insight and judgment normal. Results Labs CBC & Chem 7: 10/17/18 06:[address] CAD 10/17/18 06:38 CONCLUSION: Physiological brain perfusion parameters with RAPID analysis as above. The decision for consideration of therapy is multi factorial and multi disciplinary relying on subjective and objective clinical data. This data is not construed or intended to be the sole determinant of treatment eligibility. Chest X-Ray 10/17/18 06:38 CONCLUSION: Negative examination. Head CT 10/17/18 06:38 CONCLUSION: 1. Negative CT Head non contrast. Report was called by [ Dr. Cole to Dr. Dennison at 649am. Head CTA 10/17/18 06:38 CONCLUSION: 1. Negative CTA Head. Report was called by [ Dr. Valenzuela to Dr. Dennison at 7:08 AM.] Neck CTA 10/17/18 06:38 CONCLUSION: 1. Stable eccentric mixed plaque in the right carotid bulb extending to the internal carotid origin with resultant 60% stenosis. 2. Stable circumferential calcified plaque extending from the left carotid bulb to the internal carotid origin with resultant 45-50% stenosis. 3. Patent vertebral arteries bilaterally. Head MRI 10/17/18 11:09 CONCLUSION: 1. Minimal residual scattered cortical signal abnormalities are noted within the right high parietal region consistent with subacute right middle cerebral artery infarct. These findings are significantly improved compared to the previous examination dated 09/02/2018. No acute infarct is noted. No acute hemorrhage is noted. No midline shift or extra-axial bleed is noted. 2. Minimal periventricular and subcortical white matter small vessel ischemic changes. Caprini VTE Risk Assessment Caprini VTE Risk Assessment: Moderate/High Risk (score >= 2) Caprini Risk Assessment Model: Point Value = 1 Point Value = 2 Point Value = 3 Point Value = 5 Age 41-60 Minor surgery BMI > 25 kg/m2 Swollen legs Varicose veins or History of unexplained or recurrent spontaneous Oral contraceptives or hormone replacement Sepsis (< 1 month) Serious lung disease, including pneumonia (< 1 month) Abnormal pulmonary function Acute myocardial infarction Congestive heart failure (< 1 month) History of inflammatory bowel disease Medical patient at bed rest Age 61-74 Arthroscopic surgery Major open surgery (> 45 min) Laparoscopic surgery (> 45 min) Malignancy Confined to bed (> 72 hours) Immobilizing plaster cast Central venous access Age >= 75 History of VTE Family history of VTE Factor V Leiden Prothrombin [id number] Lupus anticoagulant Anticardiolipin antibodies Elevated serum homocysteine Heparin-induced thrombocytopenia Other congenital or acquired thrombophilia Stroke (< 1 month) Elective arthroplasty Hip, pelvis, or leg fracture Acute spinal cord injury (< 1 month) Prophylaxis Regimen: Total Risk Factor Score Risk Level Prophylaxis Regimen 0-1 Low Early ambulation 2 Moderate Order ONE of the following: *Sequential Compression Device (SCD) *Heparin 5000 units SQ BID 3-4 Higher Order ONE of the following medications: *Heparin 5000 units SQ TID *Enoxaparin/Lovenox 40 mg SQ daily (WT < 150 kg, CrCl > 30 mL/min) *Enoxaparin/Lovenox 30 mg SQ daily (WT < 150 kg, CrCl > 10-29 mL/min) *Enoxaparin/Lovenox 30 mg SQ BID (WT < 150 kg, CrCl > 30 mL/min) AND/OR *Sequential Compression Device (SCD) 5 or more Highest Order ONE of the following medications: *Heparin 5000 units SQ TID (Preferred with Epidurals) *Enoxaparin/Lovenox 40 mg SQ daily (WT < 150 kg, CrCl > 30 mL/min) *Enoxaparin/Lovenox 30 mg SQ daily (WT < 150 kg, CrCl > 10-29 mL/min) *Enoxaparin/Lovenox 30 mg SQ BID (WT < 150 kg, CrCl > 30 mL/min) AND *Sequential Compression Device (SCD) Assessment and Plan (1) Chronic ischemic right MCA stroke: Code(s): I69.30 - Unspecified sequelae of cerebral infarction Status: Acute (2) History of right-sided carotid endarterectomy: Code(s): Z98.890 - Other specified postprocedural states Status: Acute (3) Hypertension: Code(s): I10 - Essential (primary) hypertension Status: Chronic (4) Dyslipidemia: Code(s): E78.5 - Hyperlipidemia, unspecified Status: Chronic Plan 63-year-old white female with a history of CVA, recent carotid endarterectomy, hypertension presents with acute onset of left facial droop and numbness with slurred speech TIA versus CVA-patient has been evaluated by Dr. Howell, neurology who recommended changing her aspirin Plavix to Aggrenox. Await MRI of the brain for further evaluation. Consult speech therapist, physical therapy Continue with statin History of CADcontinue with beta-blockers History of hypertension, chronic essentialresume lisinopril Recent right carotid endarterectomycontinue postoperative care and pain control. Dr. aLnier, vascular surgery to evaluate neck CTA with findings of calcified plaque extending from the left carotid bulb into the internal carotid origin was resultant 45-50% stenosis DVT prophylaxisLovenox. _ (1) Hypertension Qualifiers: Hypertension type:
[2018-10-17] MEDS ORDERED: Naloxone Inj 0.4 MG/ML Vial IV.PUSH PRN (16:16)
[2018-10-17] MEDS ORDERED: Acetaminophen 325 MG Tablet PO PRN (16:16)
[2018-10-17] MEDS: Sod Chloride 0.9% Inj 1,000 ML IV.CONT SCH (16:54)
[2018-10-17] MEDS: Enoxaparin Inj 40 MG/0.4 ML Syringe SQ SCH (16:54)
--- NOTE | 2018-10-17 18:35 | P.PNVS ---
Subjective Subjective/Hospital Course: 63-year-old female underwent critical right carotid endarterectomy patch angioplasty several days ago and now presents with left hemispheric symptoms. CT of the brain and MRI of the brain are negative for acute lesion. CTA of the neck reveals about 50% stenosis of the left internal carotid artery while the right internal carotid artery is widely patent with excellent flow consistent with a recent carotid surgery. It should be noted that patient's with 70% or above asymptomatic carotid stenosis by NASCET criteria are to be considered for carotid endarterectomy. On the other hand patients with a lesser degree of stenosis if symptomatic I also considered for carotid endarterectomy. This patient has left-sided symptoms at this time and I would allow the right side to heal and there was going to consider whether this patient actually does need left-sided carotid endarterectomy for even 50% stenosis considering that this is symptomatic. Nothing to add to care at this point Will follow patient with you Thanks J Objective Vital Signs / I&O: Vital Signs 10/17/18 06:30 10/17/18 06:41 10/17/18 10:00 Temperature 98.4 F 98.7 F Pulse Rate 91 H 90 78 Respiratory Rate 18 18 18 Blood Pressure 174/79 H 157/60 H 159/79 H Pulse Oximetry 97 97 96 10/17/18 12:00 10/17/18 16:00 Temperature 97.4 F L 97.4 F L Pulse Rate 77 76 Respiratory Rate 18 18 Blood Pressure 176/75 H 170/78 H Pulse Oximetry 96 95 Intake & Output 10/16/18 10/17/18 10/17/18 18:59 06:59 18:59 Intake Total 500 / 500 Balance 500 / 500 Weight 84.7 kg Intake: IV 500 / 500 NS Inj 1,000 ML @ 70 mls/hr IV. 500 / 500 CONT .[id number] [facility] Rx#:[id number] Laboratory Results - last 24 hr 10/17/18 10/17/18 10/17/18 06:33 06:33 06:33 WBC 13.7 H RBC 4.31 Hgb 13.3 POC Hgb (Calc) 12.9 Hct 39.5 POC Hct 38.0 MCV 91.7 MCH 30.9 MCHC 33.7 RDW 13.6 Plt Count 251 MPV 8.3 Neut % (Auto) 62.4 Lymph % (Auto) 25.1 Colbert % (Auto) 10.0 H Eos % (Auto) 1.9 Baso % (Auto) 0.6 Neut # (Auto) 8.6 H Lymph # (Auto) 3.4 Colbert # (Auto) 1.4 H Eos # (Auto) 0.3 Baso # (Auto) 0.1 WBC Differential . Differential Comment Auto diff final PT 9.9 INR 1.0 APTT 24.2 Fibrinogen 434 H POC Sodium 139 POC Potassium 4.6 POC Chloride 101 L POC BUN 21 POC Creatinine 0.9 POC Glucose 114 H Total Creatine Kinase 196 H CK-MB (CK-2) 1.5 CK-MB (CK-2) % 0.8 Troponin I Less than 0.02 L Beta HCG, Quant 2 Urine Color Urine Clarity Urine pH Ur Specific [place] Urine Protein Urine Glucose (UA) Urine Ketones Urine Occult Blood Urine Nitrate Urine Bilirubin Urine Urobilinogen Ur Leukocyte Esterase Urine RBC Ur Squamous Epith Cells Urine Mucus Micro UA Comment Ur Microscopic Review Urine Culture Comments Blood Type Antibody Screen 10/17/18 10/17/18 10/17/18 07:06 07:58 13:45 WBC RBC Hgb POC Hgb (Calc) Hct POC Hct MCV MCH MCHC RDW Plt Count MPV Neut % (Auto) Lymph % (Auto) Colbert % (Auto) Eos % (Auto) Baso % (Auto) Neut # (Auto) Lymph # (Auto) Colbert # (Auto) Eos # (Auto) Baso # (Auto) WBC Differential Differential Comment PT INR APTT Fibrinogen POC Sodium POC Potassium POC Chloride POC BUN POC Creatinine POC Glucose 87 Total Creatine Kinase CK-MB (CK-2) CK-MB (CK-2) % Troponin I Beta HCG, Quant Urine Color Yellow Urine Clarity Clear Urine pH 5.0 Ur Specific [place] Greater than 1.060 H Urine Protein Negative Urine Glucose (UA) Negative Urine Ketones Negative Urine Occult Blood Negative Urine Nitrate Negative Urine Bilirubin Negative Urine Urobilinogen Less than 2 Ur Leukocyte Esterase Negative Urine RBC 1 Ur Squamous Epith Cells 1 Urine Mucus Few H Micro UA Comment Culture not ind Ur Microscopic Review Not Reportable Urine Culture Comments Culture not ind Blood Type O Negative Antibody Screen Negative 10/17/18 16:51 WBC RBC Hgb POC Hgb (Calc) Hct POC Hct MCV MCH MCHC RDW Plt Count MPV Neut % (Auto) Lymph % (Auto) Colbert % (Auto) Eos % (Auto) Baso % (Auto) Neut # (Auto) Lymph # (Auto) Colbert # (Auto) Eos # (Auto) Baso # (Auto) WBC Differential Differential Comment PT INR APTT Fibrinogen POC Sodium POC Potassium POC Chloride POC BUN POC Creatinine POC Glucose 118 H Total Creatine Kinase CK-MB (CK-2) CK-MB (CK-2) % Troponin I Beta HCG, Quant Urine Color Urine Clarity Urine pH Ur Specific [place] Urine Protein Urine Glucose (UA) Urine Ketones Urine Occult Blood Urine Nitrate Urine Bilirubin Urine Urobilinogen Ur Leukocyte Esterase Urine RBC Ur Squamous Epith Cells Urine Mucus Micro UA Comment Ur Microscopic Review Urine Culture Comments Blood Type Antibody Screen Impressions CT CAD 10/17/18 06:38 CONCLUSION: Physiological brain perfusion parameters with RAPID analysis as above. The decision for consideration of therapy is multi factorial and multi disciplinary relying on subjective and objective clinical data. This data is not construed or intended to be the sole determinant of treatment eligibility. Chest X-Ray 10/17/18 06:38 CONCLUSION: Negative examination. Head CT 10/17/18 06:38 CONCLUSION: 1. Negative CT Head non contrast. Report was called by [ Dr. Cole to Dr. Dennison at 649am. Head CTA 10/17/18 06:38 CONCLUSION: 1. Negative CTA Head. Report was called by [ Dr. Valenzuela to Dr. Dennison at 7:08 AM.] Neck CTA 10/17/18 06:38 CONCLUSION: 1. Stable eccentric mixed plaque in the right carotid bulb extending to the internal carotid origin with resultant 60% stenosis. 2. Stable circumferential calcified plaque extending from the left carotid bulb to the internal carotid origin with resultant 45-50% stenosis. 3. Patent vertebral arteries bilaterally. Head MRI 10/17/18 11:09 CONCLUSION: 1. Minimal residual scattered cortical signal abnormalities are noted within the right high parietal region consistent with subacute right middle cerebral artery infarct. These findings are significantly improved compared to the previous examination dated 09/02/2018. No acute infarct is noted. No acute hemorrhage is noted. No midline shift or extra-axial bleed is noted. 2. Minimal periventricular and subcortical white matter small vessel ischemic changes.
[2018-10-17] MEDS: Metoprolol Tartrate 50 MG Tablet PO SCH (20:27)
[2018-10-18] MEDS: Sod Chloride 0.9% Inj 1,000 ML IV.CONT SCH (01:17)
[2018-10-18 01:28] LABS: Amphetamine Screen,Urine Neg (Neg); Barbiturate Screen,Urine Neg (Neg); Cannabinoid Screen,Urine Pos (Neg); Cocaine Screen,Urine Neg (Neg)
[2018-10-18 01:43] LABS: Opiate Screen,Urine Neg (Neg)
[2018-10-18] MEDS: Insulin NovoLOG Aspart Correctional Sugar Inj SQ SCH ×2 (07:42→12:17)
[2018-10-18 07:45] VITALS: BP 182/81; RESP 20; TEMP 98.1; O2SAT 93
[2018-10-18] MEDS: Metoprolol Tartrate 50 MG Tablet PO SCH (08:11)
[2018-10-18] MEDS ORDERED: Sertraline 100 MG Tablet PO SCH (09:00)
[2018-10-18] MEDS ORDERED: Lisinopril 20 MG Tablet PO SCH (09:00)
[2018-10-18 09:30] LABS: Chol/HDL Ratio 3.5 Ratio; HDL Cholesterol 56.2 mg/dL (40.0-60.0)
--- NOTE | 2018-10-18 10:03 | P.PNIM ---
Subjective Interval history: Patient ports having significant nausea and not eating well. No associated abdominal pain. She states that she this is always associated with a new CVA. She still wants to go home later today if she can tolerate her diet. She is requesting refills of her Zoloft for the next 30 days. In addition she is requesting Phenergan suppositories for her nausea. She denies any diarrhea. She has not had any chills or fever. She still complains of left -sided facial numbness with no changes. Physical Exam Vital signs: Last Vital Signs Temp 98.1 F 10/18/18 07:43 Pulse 83 10/18/18 07:43 Resp 20 10/18/18 07:43 BP 182/81 H 10/18/18 07:43 Pulse Ox 93 L 10/18/18 07:43 Intake & Output 10/16/18 10/17/18 10/18/18 10/19/18 06:59 06:59 06:59 06:59 Intake Total 1500 / 1500 Balance 1500 / 1500 Weight 84.7 kg 85.4 kg Narrative: GENERAL: This is a well-nourished, well-developed patient, in no apparent distress. CARDIOVASCULAR: Regular rate and rhythm RESPIRATORY: Clear to auscultation. Breath sounds equal bilaterally. No wheezes , rales, or rhonchi. GASTROINTESTINAL: Abdomen soft, non-tender, nondistended. Normal active bowel sounds MUSCULOSKELETAL: Extremities without clubbing, cyanosis, or edema. NEURO: Alert & Oriented x4 to person, place, time, situation. Moves all ext x4 , motor strength 5 out of 5 bilateral upper extremity lower extremity. Mild left facial droop. Sensation grossly intact. Results Labs CBC & Chem 7: 10/17/18 06:33 Imaging Imaging: Impressions Head MRI 10/17/18 11:09 CONCLUSION: 1. Minimal residual scattered cortical signal abnormalities are noted within the right high parietal region consistent with subacute right middle cerebral artery infarct. These findings are significantly improved compared to the previous examination dated 09/02/2018. No acute infarct is noted. No acute hemorrhage is noted. No midline shift or extra-axial bleed is noted. 2. Minimal periventricular and subcortical white matter small vessel ischemic changes. Assessment and Plan Plan 63-year-old white female with a history of CVA, recent carotid endarterectomy, hypertension presents with acute onset of left facial droop and numbness with slurred speech Acute TIA-patient has been evaluated by Dr. Howell, neurology who recommended changing her aspirin Plavix to Aggrenox. MRI did not show acute infarct. Continue with statin History of CADcontinue with beta-blockers History of hypertension, chronic essentialblood pressure uncontrolled. We will increase lisinopril dose to 40 mg with new prescription given to patient. Recent right carotid endarterectomycontinue postoperative care and pain control. Status post evaluation with Dr. Lanier, vascular surgery neck CTA with findings of calcified plaque extending from the left carotid bulb into the internal carotid origin was resultant 45-50% stenosis, and recommended medical management at this time. We will start statin and continue with Aggrenox. NauseaZofran given. Patient states is not associated with abdominal pain DVT prophylaxisLovenox. Discharge patient to home Condition on discharge: Improved Cardiac diet as tolerated Ad Mamie activity Rx written: Aggrenox 1 p.o. twice daily And again 25 mg ID every 6 hours as needed for nausea Lisinopril 40 mg p.o. daily Follow-up with primary care physician
[2018-10-18] MEDS ORDERED: Lisinopril 20 MG Tablet PO ONE (10:30)
[2018-10-18] MEDS: Enoxaparin Inj 40 MG/0.4 ML Syringe SQ SCH (11:05)
--- NOTE | 2018-10-18 11:30 | P.PNNEU ---
Subjective Subjective Comments: no cp, no weakness, face feels back to baseline. wants to go home Active Medications: Active Medications Acetaminophen (Tylenol) 650 mg PO Q4H PRN PRN Reason: Pain scale 1 to 5 Aspirin (Ecotrin) 81 mg PO DAILY [facility] Last Admin: 10/18/18 08:11 Dose: 81 mg Dextrose (D50w Vial) 50 ml IV.PUSH UNSCH PRN PRN Reason: PER HYPOGLYCEMIA PROTOCOL Dipyridamole/Aspirin (Aggrenox) 1 cap PO Q12HR [facility] Last Admin: 10/18/18 08:11 Dose: 1 cap Enalaprilat (Vasotec Inj) 1.25 mg IV.PUSH Q4H PRN PRN Reason: For SBP > 220 or DBP > 120 Enoxaparin Sodium (Lovenox Inj) 40 mg SQ Q24H [facility] Last Admin: 10/18/18 11:05 Dose: 40 mg Glucagon (Glucagon Inj) 1 mg OTHER UNSCH PRN PRN Reason: for Hypoglycemia Protocol Sodium Chloride (Ns Inj) 1,000 mls @ 70 mls/hr IV.CONT .[id number] [facility] Last Admin: 10/18/18 01:17 Dose: 70 mls/hr Insulin Aspart (Novolog Insulin Correctional Sugar Inj) 0 unit SQ ACHS [facility]; Protocol Last Admin: 10/18/18 07:42 Dose: Not Given Lisinopril (Prinivil) 40 mg PO DAILY [facility] Metoprolol Tartrate (Lopressor) 50 mg PO BID [facility] Last Admin: 10/18/18 08:11 Dose: 50 mg Naloxone HCl (Narcan Inj) 0.4 mg IV.PUSH UNSCH PRN PRN Reason: SEE LABEL COMMENTS Ondansetron HCl (Zofran Inj) 4 mg IV.PUSH Q6H PRN PRN Reason: NAUSEA Last Admin: 10/18/18 08:14 Dose: 4 mg Oxycodone/Acetaminophen (Percocet 5/325 Mg) 1 tab PO Q4H PRN PRN Reason: PAIN SCALE 6 TO 10 Last Admin: 10/17/18 17:00 Dose: 1 tab Pravastatin Sodium (Pravachol) 40 mg PO HS [facility] Last Admin: 10/17/18 20:27 Dose: 40 mg Sertraline HCl (Zoloft) 100 mg PO DAILY [facility] Last Admin: 10/18/18 08:11 Dose: 100 mg Sodium Chloride (Ns Flush) 2 ml IV.FLUSH BID [facility] Last Admin: 10/18/18 08:14 Dose: 2 ml Sodium Chloride (Ns Flush) 2 ml IV.FLUSH PRN PRN PRN Reason: FLUSH AFTER USING IV ACCESS Allergies/Adverse Reactions: Allergies Allergy/AdvReac Type Severity Reaction Status Date / Time codeine AdvReac Mild Nausea Verified 10/17/18 06:30 vomiting Review of Systems All other systems reviewed negative except as stated in HPI Physical Exam Vital signs: Vital Signs 10/17/18 12:00 10/17/18 16:00 10/17/18 20:00 Temperature 97.4 F L 97.4 F L 97.8 F Pulse Rate 77 76 85 Respiratory Rate 18 18 18 Blood Pressure 176/75 H 170/78 H 163/78 H Pulse Oximetry 96 95 98 10/18/18 00:00 10/18/18 00:39 10/18/18 01:07 Temperature 97.6 F Pulse Rate 95 H 94 H Respiratory Rate 18 Blood Pressure 168/79 H Pulse Oximetry 97 98 10/18/18 04:00 10/18/18 05:27 10/18/18 07:43 Temperature 97.3 F L 98.1 F Pulse Rate 84 83 83 Respiratory Rate 18 20 Blood Pressure 148/71 H 182/81 H Pulse Oximetry 96 93 L Intake & Output 10/17/18 10/18/18 10/18/18 18:59 06:59 18:59 Intake Total 500 / 500 1000 / 1000 Balance 500 / 500 1000 / 1000 Weight 85.4 kg 85.4 kg Intake: IV 500 / 500 1000 / 1000 NS Inj 1,000 ML @ 70 mls/hr IV. 500 / 500 1000 / 1000 CONT .[id number] [facility] Rx#:[id number] Other: # Voids 2 Date of Last Bowel Movement 10/17/18 10/17/18 Weight On Admission 85.4 kg Narrative: GENERAL: This is a well-nourished, well-developed patient, in no apparent distress. ox3, face sym, mild reduced pin left arm/leg, no drift, gait stable - Constitutional no acute distress - Routine HEENT Exam Head: Present: normocephalic Eye: Present: EOMI Objective Laboratory Results - last 24 hr 10/17/18 10/17/1810/17/18 07:58 13:45 16:51 POC Glucose 87 118 H Triglycerides Cholesterol LDL Cholesterol, Calc HDL Cholesterol Cholesterol/HDL Ratio Urine Opiates Screen Neg Ur Barbiturates Screen Neg Ur Amphetamines Screen Neg U Benzodiazepines Scrn Neg Urine Cocaine Screen Neg U Cannabinoids Screen Pos H 10/17/18 10/18/18 10/18/18 20:32 07:42 07:47 POC Glucose 192 H 127 H Triglycerides 164 H Cholesterol 197 LDL Cholesterol, Calc 108 H HDL Cholesterol 56.2 Cholesterol/HDL Ratio 3.50 Urine Opiates Screen Ur Barbiturates Screen Ur Amphetamines Screen U Benzodiazepines Scrn Urine Cocaine Screen U Cannabinoids Screen Review/Management - Diagnosis (1) Chronic ischemic right MCA stroke Code(s): I69.30 - Unspecified sequelae of cerebral infarction Status: Acute Current Visit: Yes (2) History of right-sided carotid endarterectomy Code(s): Z98.890 - Other specified postprocedural states Status: Acute Current Visit: Yes (3) Hypertension Code(s): I10 - Essential (primary) hypertension Status: Chronic Current Visit: No (4) Dyslipidemia Code(s): E78.5 - Hyperlipidemia, unspecified Status: Chronic Current Visit: No - Review/Management Plan: Possible recurrent TIA versus extension of stroke versus new infarct; CT brain negative CTA carotids shows right carotid 60% stent stenosis of the bulb which is surprising as she had recent endarterectomy Recommendation neuro stable mri brain stable ok to d/c home may need to go back to plavix/aspirin if she can't afford aggrenox Behavioral modification and risk factor reduction. Weight loss, blood pressure control, blood sugar control, lipid control. Exercise (3) Hypertension Qualifiers:
[2018-10-18 12:19] LABS: Hemoglobin A1c 5.3 % (4.3-6.0)
--- NOTE | 2018-10-18 12:28 | OTSOAPIP ---
TIME SESSION COMPLETED: 1130 AM PATIENT REPORTS SHE IS BEING DC AND HAS RETURNED TO BASELINE AND DOES NOT NEED THERAPY. PHYSICAL THERAPIST DOCUMENTS INDEPENDENT FOR FUNCTIONAL MOBILITY. Therapist: Kyara Garcia Signature on file
[2018-10-18 12:37] VITALS: PULSE 106
[2018-10-19] MEDS ORDERED: Lisinopril 20 MG Tablet PO SCH (09:00)
== END 2018-10-18 13:10 | disposition home or self-care (01) | DRG 69 ==
LOC: NEPE 06:27 → NEDA 11:13 → N05 13:35
PROVIDERS: ADMIT Family Medicine; ATTEND Family Medicine
DX: G45.9 Transient cerebral ischemic attack, unspecified; Z98.890 Other specified postprocedural states; R20.0 Anesthesia of skin; I25.10 Atherosclerotic heart disease of native coronary artery without angina pectoris; E78.5 Hyperlipidemia, unspecified; R29.810 Facial weakness; Z86.73 Personal history of transient ischemic attack (TIA), and cerebral infarction without residual deficits; R47.81 Slurred speech; R11.2 Nausea with vomiting, unspecified; I10 Essential (primary) hypertension
CPT/HCPCS: 0042T; 70450; 70496; 70498; 70551; 71010; 71045; 76497; 76499; 80048; 80061; 80307; 81001; 82550; 82552; 82948; 82962; 83036; 84484; 84702; 85025; 85384; 85610; 85730; 86850; 86900; 86901; 90760; 90761; 96360; 96361; 97161; 99285; J0780; J1650; J2405; J7030; P9612; Q9967